=== PATIENT | female | born 1985 | race African-American/Black ===

== ENCOUNTER 2024-06-17 20:43 | Inpatient (IN) | payer OTHER, MEDICAID ==
[~2024-06-17] VITALS: Ht 175.3 cm; Wt 54.0 kg
[~2024-06-17 20:43] MED LIST: ASPI81TA43 PO; CALC0.253 PO; FOLI-43 PO; OLAN10TA72 PO
[2024-06-17] MEDS: SODIUM CHLORIDE 0.9% 500 ML IV ONE (22:44)
[2024-06-17] MEDS: PIPERACILLIN/TAZO 3.375G/50ML 50 ML IV ONE (23:00)
[2024-06-17 23:01] LABS: BASOPHILS % 0.8 % (0.0-2.0); EOSINOPHILS % 6.2 % (0.0-5.0); HEMATOCRIT. 36.7 % (36.0-48.0); HEMOGLOBIN. 11.5 g/dL (12.0-16.0); LYMPHOCYTES % 15.5 % (20.0-50.0); MEAN CORPUSCULAR HEMOGLOBIN 26.7 pg (28.0-32.0); MEAN CORPUSCULAR HGB CONC 31.2 g/dL (31.0-37.0); MEAN CORPUSCULAR VOLUME 85.4 fL (81.0-99.0); MEAN PLATELET VOLUME 9.3 fl (7.4-10.4); MONOCYTES % 13.5 % (2.0-8.0); PLATELET 169 x1000/uL (130-400); RED CELL DISTRIBUTION WIDTH 16.1 % (11.6-14.6); WHITE BLOOD COUNT 6.5 x1000/uL (4.5-11.0)
[2024-06-17 23:07] LABS: CHLORIDE 98 mEq/L (98-107); POTASSIUM 5.9 mEq/L (3.5-5.1); SODIUM 140 mEq/L (136-145)
[2024-06-17 23:08] LABS: CARBON DIOXIDE 37 mEq/L (21-32)
[2024-06-17 23:09] LABS: CALCIUM 7.6 mg/dL (8.7-10.4)
[2024-06-17 23:13] LABS: CREATININE 4.7 mg/dL (0.6-1.0); GLUCOSE 101 mg/dL (70-105)
[2024-06-17 23:14] LABS: UREA NITROGEN BLOOD 30 mg/dL (9-23)
[2024-06-17 23:15] LABS: ALANINE AMINOTRANSFERASE 8 IU/L (10-49); ALBUMIN 4.1 g/dL (3.2-4.8); ASPARTATE AMINOTRANSFERASE 31 IU/L (<34)
[2024-06-17 23:16] LABS: BILIRUBIN TOTAL 0.3 mg/dL (0.1-1.0); PROTEIN TOTAL 7.4 g/dL (6.0-8.3)
[2024-06-17 23:17] LABS: BILIRUBIN DIRECT < 0.1 mg/dL (<=3.0)
[2024-06-17] MEDS ORDERED: CALCIUM GLUCONATE 1,000 MG in DEXT 5% WATER 100 ML IV ONE (23:45)
[2024-06-18] VITALS (12 sets, daily range): BP systolic 115–142; BP diastolic 65–93; PULSE 88–113; RESP 16–18; TEMP 36.3918–36.78072; O2SAT 96–99
[2024-06-18] MEDS: CALCIUM GLUCONATE 1GM PREMIX 50 ML IV NR (01:19)
[2024-06-18] MEDS: DEXTROSE 50% WATER 50ML SYRINGE IV ONE (01:22)
[2024-06-18] MEDS: DEXTROSE 50% WATER 50ML SYRINGE IV NR (01:26)
[2024-06-18] MEDS: INSULIN REGULAR (HUMULIN R) 1000UNITS/10ML VIAL IV ONE (01:27)
[2024-06-18] MEDS: SODIUM BICARBONATE 8.4% 50MEQ/50ML SYR IV ONE (01:27)
[2024-06-18] MEDS: INSULIN REGULAR (HUMULIN R) 1000UNITS/10ML VIAL IV NR (01:34)
[2024-06-18] MEDS: SODIUM BICARBONATE 8.4% 50MEQ/50ML SYR IV NR (01:34)
[2024-06-18] MEDS ORDERED: CEFEPIME 1GM IN DEXT 5% 50ML IV SCH (11:45)
[2024-06-18] MEDS: VANCOMYCIN 1.25GM/250ML IV NR (13:51)
[2024-06-18] MEDS: CEFEPIME 1GM/50ML 50 ML IV SCH (13:52)
[2024-06-18] MEDS: DIPHENHYDRAMINE 50MG/ML VIAL IV NR (16:45)
[2024-06-18] MEDS: LACTOBACILLUS RHAMNOSUS GG CAP PO SCH (18:30)
[2024-06-19] VITALS: BP 106/86; PULSE 106; RESP 18; TEMP 36.44736; O2SAT 98
[2024-06-19 08:05] VITALS: BP 104/64; PULSE 96; RESP 18; TEMP 38.00304; O2SAT 97
[2024-06-19 12:02] VITALS: BP 108/64; PULSE 92; RESP 18; TEMP 36.55848; O2SAT 98
[2024-06-19 12:23] LABS: BASOPHILS % 0.8 % (0.0-2.0); EOSINOPHILS % 7.3 % (0.0-5.0); HEMATOCRIT. 35.1 % (36.0-48.0); HEMOGLOBIN. 11.1 g/dL (12.0-16.0); LYMPHOCYTES % 15.5 % (20.0-50.0); MEAN CORPUSCULAR HEMOGLOBIN 26.9 pg (28.0-32.0); MEAN CORPUSCULAR HGB CONC 31.5 g/dL (31.0-37.0); MEAN CORPUSCULAR VOLUME 85.4 fL (81.0-99.0); MEAN PLATELET VOLUME 8.7 fl (7.4-10.4); MONOCYTES % 11.2 % (2.0-8.0); NEUTROPHILS % 65.2 % (40.0-76.0); PLATELET 148 x1000/uL (130-400); RED BLOOD CELL COUNT 4.11 mill/uL (4.2-5.4); RED CELL DISTRIBUTION WIDTH 16.2 % (11.6-14.6); WHITE BLOOD COUNT 4.7 x1000/uL (4.5-11.0)
[2024-06-19 12:39] LABS: POTASSIUM 4.5 mEq/L (3.5-5.1)
[2024-06-19 12:40] LABS: CALCIUM 7.2 mg/dL (8.7-10.4)
[2024-06-19 13:46] LABS: HEPATITIS B SURFACE ANTIGEN NEGATIVE (Negative)
[2024-06-19 14:06] LABS: HEPATITIS A AB IGM NEGATIVE (Negative)
[2024-06-19 14:07] LABS: HEPATITIS B CORE AB IGM NEGATIVE (Negative)
[2024-06-19 14:08] LABS: HEPATITIS C AB NON REACTIVE (Neg) (Negative)
[2024-06-19] MEDS: HYDROCODONE/ACETAMINOPHEN 5/325MG TABLET PO PRN (15:37)
[2024-06-19 16:04] VITALS: BP 110/66; PULSE 68; RESP 18; TEMP 36.78072; O2SAT 94
[2024-06-19] MEDS ORDERED: NALOXONE HCL 0.4MG/ML VIAL IV PRN (17:15)
[2024-06-19 17:32] LABS: HCG SCREEN NEGATIVE
[2024-06-19] MEDS: PREDNISONE 20MG TABLET PO SCH (18:51)
[2024-06-19 20:00] VITALS: BP 107/65; PULSE 75; RESP 20; TEMP 36.44736; O2SAT 95
[2024-06-20] VITALS (13 sets, daily range): BP systolic 94–159; BP diastolic 53–69; PULSE 78–120; RESP 16–20; TEMP 36.16956–37.2252; O2SAT 93–100
[2024-06-20] MEDS: DIPHENHYDRAMINE 50MG CAPSULE PO SCH (06:11)
[2024-06-20 07:39] LABS: BASOPHILS % 0.4 % (0.0-2.0); EOSINOPHILS % 0.7 % (0.0-5.0); HEMATOCRIT. 38.3 % (36.0-48.0); HEMOGLOBIN. 12.1 g/dL (12.0-16.0); LYMPHOCYTES % 8.5 % (20.0-50.0); MEAN CORPUSCULAR HGB CONC 31.6 g/dL (31.0-37.0); MEAN CORPUSCULAR VOLUME 85.5 fL (81.0-99.0); MEAN PLATELET VOLUME 9.4 fl (7.4-10.4); MONOCYTES % 1.3 % (2.0-8.0); NEUTROPHILS % 89.1 % (40.0-76.0); PLATELET 155 x1000/uL (130-400); RED BLOOD CELL COUNT 4.49 mill/uL (4.2-5.4); WHITE BLOOD COUNT 5.1 x1000/uL (4.5-11.0)
[2024-06-20] MEDS: SEVELAMER CARBONATE 800 MG TABLET PO SCH (07:40)
[2024-06-20 07:50] LABS: POTASSIUM 4.8 mEq/L (3.5-5.1)
[2024-06-20 07:52] LABS: CALCIUM 6.9 mg/dL (8.7-10.4)
[2024-06-20 08:20] LABS: CREATININE 5.9 mg/dL (0.6-1.0)
[2024-06-20] MEDS: DIPHENHYDRAMINE 50MG/ML VIAL IV NR (09:45)
[2024-06-20] MEDS: FOLIC ACID/VITAMIN B COMP W-C TABLET PO SCH (11:38)
[2024-06-20] MEDS: VANCOMYCIN 500MG PREMIX 100 ML IV SCH (21:00)
[2024-06-21] VITALS: BP_SYST 111; BP_SYST 132; BP_DIAS 78; PULSE 95; RESP 20; TEMP 36.6696; O2SAT 100
[2024-06-21 04:00] VITALS: BP 99/57; PULSE 98; RESP 20; TEMP 36.61404; O2SAT 99
[2024-06-21 10:31] LABS: BASOPHILS % 0.8 % (0.0-2.0); EOSINOPHILS % 2.6 % (0.0-5.0); HEMATOCRIT. 36.4 % (36.0-48.0); HEMOGLOBIN. 11.5 g/dL (12.0-16.0); LYMPHOCYTES % 20.6 % (20.0-50.0); MEAN CORPUSCULAR HEMOGLOBIN 26.8 pg (28.0-32.0); MEAN CORPUSCULAR HGB CONC 31.5 g/dL (31.0-37.0); MEAN CORPUSCULAR VOLUME 84.9 fL (81.0-99.0); MEAN PLATELET VOLUME 8.8 fl (7.4-10.4); MONOCYTES % 10.6 % (2.0-8.0); NEUTROPHILS % 65.4 % (40.0-76.0); PLATELET 173 x1000/uL (130-400); RED BLOOD CELL COUNT 4.28 mill/uL (4.2-5.4); RED CELL DISTRIBUTION WIDTH 15.8 % (11.6-14.6); WHITE BLOOD COUNT 5.8 x1000/uL (4.5-11.0)
[2024-06-21 10:43] LABS: INR 1.1; PROTHROMBIN TIME 11.9 sec (9.6-11.0)
[2024-06-21 10:52] LABS: CREATININE 6.2 mg/dL (0.6-1.0)
[2024-06-21] MEDS ORDERED: THROMBIN (BOVINE) 5000 UNITS/VIAL TOP ONE ×2 (11:17→15:41)
[2024-06-21] MEDS ORDERED: BACITRACIN 14GM TUBE TOP ONE (11:17)
[2024-06-21] MEDS ORDERED: POLYMYXIN B SULFATE 500000 UNITS/VIAL ONE (11:17)
[2024-06-21] MEDS ORDERED: LIDOCAINE HCL/EPINEPHRINE 1%-EPI 1:100,000 20ML VIAL ONE (11:18)
[2024-06-21] MEDS ORDERED: HEPARIN SODIUM 1,000 UNIT/1ML VIAL IV ONE (11:18)
[2024-06-21] MEDS ORDERED: BUPIVACAINE HCL/PF 0.5% (5MG/ML) 10ML ONE (11:18)
[2024-06-21] MEDS ORDERED: IOHEXOL-300 100 ML BOTTLE ONE (11:23)
[2024-06-21] MEDS ORDERED: LIDOCAINE HCL 1% 20ML VIAL ONE (11:24)
[2024-06-21] MEDS ORDERED: HEPARIN 5000 UNITS/ML VIAL ONE (12:41)
[2024-06-21] MEDS ORDERED: PROPOFOL 200MG/20ML VIAL IV ONE (12:49)
[2024-06-21] MEDS: VANCOMYCIN 500MG PREMIX 100 ML IV SCH (13:00)
[2024-06-21] MEDS: CALCIUM ACETATE 667MG CAPSULE PO SCH (13:00)
[2024-06-21] MEDS ORDERED: LIDOCAINE HCL 1% 10 MG/ML 10ML VIAL ONE (13:01)
[2024-06-21] MEDS ORDERED: FENTANYL CITRATE/PF 50MCG/ML 2ML VIAL ONE ×3 (13:20→15:28)
[2024-06-21] MEDS ORDERED: MIDAZOLAM HCL 2 MG/2 ML VIAL ONE (13:20)
[2024-06-21] MEDS ORDERED: EPHEDRINE SULFATE 50MG/ML VIAL ONE (13:21)
[2024-06-21] MEDS ORDERED: ROCURONIUM BROMIDE 10MG/ML VIAL 5ML IV ONE ×2 (13:22→13:43)
[2024-06-21] MEDS ORDERED: PHENYLEPHRINE HCL 10MG/ML 1ML IV ONE (13:30)
[2024-06-21] MEDS ORDERED: METOCLOPRAMIDE HCL 10MG/2ML VIAL ONE (13:42)
[2024-06-21] MEDS ORDERED: VANCOMYCIN HCL 1GM VIAL ONE (13:54)
[2024-06-21] MEDS ORDERED: VANCOMYCIN HCL 500 MG ONE (14:01)
[2024-06-21] MEDS ORDERED: HEPARIN 1000 UNITS/ML 10ML ONE ×2 (15:06→16:42)
[2024-06-21] MEDS ORDERED: SUGAMMADEX SODIUM 200MG/2ML VIAL IV ONE (15:25)
[2024-06-21] MEDS ORDERED: PROTAMINE SULFATE 10MG/ML VIAL 5ML IV ONE (15:47)
[2024-06-21] MEDS ORDERED: ONDANSETRON HCL 4MG/2ML INJ ONE (16:25)
[2024-06-21] MEDS ORDERED: FENTANYL CITRATE/PF 50MCG/ML 2ML VIAL IV PRN (17:30)
[2024-06-21] MEDS ORDERED: ONDANSETRON HCL 4MG/2ML INJ IV PRN (17:30)
[2024-06-21 20:00] VITALS: BP 97/50; PULSE 68; RESP 18; TEMP 36.50292; O2SAT 99
[2024-06-22] VITALS (11 sets, daily range): BP systolic 90–105; BP diastolic 35–70; PULSE 68–108; RESP 16–18; TEMP 35.89176–38.11416; O2SAT 98–99
[2024-06-22] MEDS ORDERED: DIPHENHYDRAMINE 50MG CAPSULE PO PRN (09:00)
[2024-06-22] MEDS: DIPHENHYDRAMINE 50MG/ML VIAL IV NR (09:07)
[2024-06-22 11:38] LABS: POTASSIUM 3.2 mEq/L (3.5-5.1)
[2024-06-22 11:39] LABS: CALCIUM 7.1 mg/dL (8.7-10.4)
[2024-06-22 12:21] LABS: CREATININE 3.7 mg/dL (0.6-1.0)
[2024-06-22] MEDS: VANCOMYCIN 750MG PREMIX 150 ML IV SCH (14:55)
[2024-06-23] VITALS (16 sets, daily range): BP systolic 85–118; BP diastolic 30–68; PULSE 72–97; RESP 14–20; TEMP 36.61404–37.39188; O2SAT 98–100
[2024-06-23] MEDS ORDERED: LIDOCAINE HCL 1% 10 MG/ML 10ML VIAL ONE (07:46)
[2024-06-23] MEDS ORDERED: HEPARIN 1000 UNITS/ML 10ML ONE (07:46)
[2024-06-23] MEDS ORDERED: FENTANYL CITRATE/PF 50MCG/ML 2ML VIAL ONE (08:04)
[2024-06-23] MEDS: FENTANYL CITRATE/PF 50MCG/ML 2ML VIAL IV NR (08:05)
[2024-06-23] MEDS: LIDOCAINE/PRILOCAINE CREAM 5 GM TUBE TOP NR (11:05)
[2024-06-24] VITALS (9 sets, daily range): BP systolic 95–115; BP diastolic 39–91; PULSE 84–105; RESP 15–20; TEMP 36.28068–37.11408; O2SAT 95–99
[2024-06-24] MEDS: DIPHENHYDRAMINE 50MG/ML VIAL IV NR (11:01)
[2024-06-24] MEDS ORDERED: VANCOMYCIN 750MG/150ML (BAXTER) IV NR (17:00)
[2024-06-25] VITALS: BP 107/46; PULSE 83; RESP 20; TEMP 36.3918; O2SAT 95
[2024-06-25 04:00] VITALS: BP 97/44; PULSE 85; RESP 20; TEMP 36.16956; O2SAT 96
[2024-06-25 08:00] VITALS: BP_SYST 90; BP_SYST 98; BP_DIAS 46; BP_DIAS 50; PULSE 82; RESP 19; TEMP 36.61404; O2SAT 99
[2024-06-25 12:00] VITALS: PULSE 86; RESP 18; TEMP 36.89184; O2SAT 96
[2024-06-25 16:00] VITALS: BP 97/39; PULSE 87; RESP 18; TEMP 36.55848; O2SAT 96
[2024-06-25 20:00] VITALS: BP 102/46; PULSE 94; RESP 18; TEMP 36.89184; O2SAT 98
[2024-06-25] MEDS: MORPHINE SULFATE 2 MG/ML INJ (NOT FOR IM USE) IV PRN (22:21)
[2024-06-26] VITALS (14 sets, daily range): BP systolic 88–146; BP diastolic 48–81; PULSE 58–99; RESP 16–20; TEMP 36.55848–37.89192; O2SAT 94–100
[2024-06-26] MEDS: DIPHENHYDRAMINE 50MG/ML VIAL IV NR (10:02)
[2024-06-26] MEDS ORDERED: NALOXONE HCL 0.4MG/ML VIAL IV PRN (21:45)
[2024-06-27 08:00] VITALS: BP 120/59; PULSE 83; RESP 18; TEMP 36.05844; O2SAT 99
[2024-06-27 12:00] VITALS: BP 96/46; PULSE 89; RESP 18; TEMP 36.61404; O2SAT 99
[2024-06-27 16:00] VITALS: BP 98/42; PULSE 83; RESP 18; TEMP 37.11408; O2SAT 98
[2024-06-27 20:00] VITALS: BP 96/54; PULSE 87; RESP 20; TEMP 36.33624; O2SAT 100
[2024-06-28] VITALS (15 sets, daily range): BP systolic 86–116; BP diastolic 35–56; PULSE 60–92; RESP 16–18; TEMP 36.114–36.78072; O2SAT 97–98
[2024-06-28] MEDS: DIPHENHYDRAMINE 50MG/ML VIAL IV NR (13:45)
[2024-06-28] MEDS: MIDODRINE HCL 5MG TABLET PO SCH (19:04)
[2024-06-29] VITALS: BP 120/48; PULSE 70; RESP 18; TEMP 36.50292; O2SAT 97
[2024-06-29 04:00] VITALS: BP 96/50; PULSE 79; RESP 16; TEMP 36.16956; O2SAT 96
[2024-06-29 08:00] VITALS: BP 71/36; PULSE 72; RESP 19; TEMP 36.61404; O2SAT 97
[2024-06-29 12:00] VITALS: BP 92/50; PULSE 68; RESP 19; TEMP 36.61404; O2SAT 97
[2024-06-29 16:00] VITALS: BP 143/65; PULSE 65; RESP 19; TEMP 36.61404; O2SAT 90
[2024-06-29 20:00] VITALS: BP 103/55; PULSE 62; RESP 19; TEMP 36.55848; O2SAT 100
[2024-06-30] VITALS: BP 98/52; PULSE 65; RESP 19; TEMP 36.3918; O2SAT 100
[2024-06-30 08:00] VITALS: BP 90/61; PULSE 63; RESP 20; TEMP 35.5584; O2SAT 100
[2024-06-30] MEDS: DIPHENHYDRAMINE 50MG/ML VIAL IV SCH (10:00)
[2024-06-30 12:00] VITALS: BP 116/63; PULSE 63; RESP 18; TEMP 35.61396; O2SAT 97
[2024-06-30 16:00] VITALS: BP 93/66; PULSE 69; RESP 20; TEMP 36.3918; O2SAT 95
[2024-06-30 20:00] VITALS: BP 117/64; PULSE 70; RESP 18; TEMP 36.89184; O2SAT 100
[2024-07-01] VITALS (14 sets, daily range): BP systolic 97–161; BP diastolic 50–78; PULSE 65–98; RESP 16–18; TEMP 36.114–36.6696; O2SAT 97–100
[2024-07-01] MEDS: ACETAMINOPHEN 325MG TABLET PO PRN (09:09)
[2024-07-01] MEDS: ONDANSETRON HCL 4MG/2ML INJ IV PRN (14:08)
[2024-07-01] MEDS: HYDROCODONE/ACETAMINOPHEN 5/325MG TABLET PO PRN (14:09)
[2024-07-01] MEDS: DIPHENHYDRAMINE 50MG/ML VIAL IV NR (18:07)
[2024-07-01 18:51] LABS: POTASSIUM 4.1 mEq/L (3.5-5.1)
[2024-07-01 18:52] LABS: CALCIUM 7.2 mg/dL (8.7-10.4)
[2024-07-01 19:00] LABS: CREATININE 7.4 mg/dL (0.6-1.0)
[2024-07-01 19:02] LABS: BASOPHILS % 1.3 % (0.0-2.0); EOSINOPHILS % 12.8 % (0.0-5.0); HEMATOCRIT. 29.4 % (36.0-48.0); HEMOGLOBIN. 9.6 g/dL (12.0-16.0); LYMPHOCYTES % 20.5 % (20.0-50.0); MEAN CORPUSCULAR HEMOGLOBIN 27.1 pg (28.0-32.0); MEAN CORPUSCULAR HGB CONC 32.6 g/dL (31.0-37.0); MEAN CORPUSCULAR VOLUME 83.2 fL (81.0-99.0); MEAN PLATELET VOLUME 9.2 fl (7.4-10.4); MONOCYTES % 8.6 % (2.0-8.0); NEUTROPHILS % 56.8 % (40.0-76.0); PLATELET 131 x1000/uL (130-400); RED BLOOD CELL COUNT 3.53 mill/uL (4.2-5.4); RED CELL DISTRIBUTION WIDTH 15.5 % (11.6-14.6); WHITE BLOOD COUNT 4.3 x1000/uL (4.5-11.0)
[2024-07-02] VITALS: PULSE 65; RESP 18; TEMP 36.44736; O2SAT 99
[2024-07-02 08:00] VITALS: BP 84/32; PULSE 65; RESP 19; TEMP 36.3918; O2SAT 97
[2024-07-02 12:00] VITALS: BP 92/66; PULSE 66; RESP 18; TEMP 36.61404; O2SAT 96
[2024-07-02] MEDS: MIDODRINE HCL 5MG TABLET PO SCH (13:11)
[2024-07-02 20:00] VITALS: BP 109/51; PULSE 60; RESP 18; TEMP 36.61404; O2SAT 100
[2024-07-03] VITALS: BP 93/82; PULSE 58; RESP 18; TEMP 36.3918; O2SAT 96
[2024-07-03 04:00] VITALS: BP 125/62; PULSE 64; RESP 18; TEMP 36.72516; O2SAT 96
[2024-07-03 08:00] VITALS: BP 101/56; PULSE 63; RESP 18; TEMP 36.55848; O2SAT 95
[2024-07-03 12:00] VITALS: BP 122/66; PULSE 65; RESP 17; TEMP 36.50292; O2SAT 97
[2024-07-03 16:00] VITALS: BP 115/60; PULSE 60; RESP 18; TEMP 36.3918; O2SAT 97
[2024-07-03 20:00] VITALS: BP 120/41; PULSE 62; RESP 17; TEMP 36.55848; O2SAT 96
[2024-07-04] VITALS (14 sets, daily range): BP systolic 80–152; BP diastolic 33–94; PULSE 57–87; RESP 16–18; TEMP 35.72508–36.6696; O2SAT 97–100
[2024-07-04] MEDS: DIPHENHYDRAMINE 50MG/ML VIAL IV NR (14:55)
[2024-07-05] VITALS: BP 90/38; PULSE 68; RESP 18; TEMP 36.55848; O2SAT 99
[2024-07-05 04:00] VITALS: BP 92/40; PULSE 74; RESP 18; TEMP 36.50292; O2SAT 99
[2024-07-05 08:00] VITALS: BP 104/65; PULSE 60; RESP 16; TEMP 36.50292; O2SAT 95
[2024-07-05 12:00] VITALS: BP 108/68; PULSE 73; RESP 18; TEMP 36.50292; O2SAT 98
[2024-07-05 16:00] VITALS: BP 110/60; PULSE 75; RESP 18; TEMP 36.50292; O2SAT 98
[2024-07-05 20:00] VITALS: BP 118/61; PULSE 79; RESP 16; TEMP 36.114; O2SAT 98
[2024-07-06] VITALS (12 sets, daily range): BP systolic 85–160; BP diastolic 41–120; PULSE 61–83; RESP 16–20; TEMP 35.78064–37.16964; O2SAT 95–99
[2024-07-06] MEDS: DIPHENHYDRAMINE 50MG/ML VIAL IV NR (16:44)
[2024-07-07] VITALS: BP 80/38; PULSE 75; RESP 19; TEMP 36.78072; O2SAT 100
[2024-07-07] MEDS ORDERED: SODIUM CHLORIDE 0.9% 250 ML IV ONE (01:30)
[2024-07-07 04:00] VITALS: BP 93/59; PULSE 69; RESP 19; TEMP 36.61404; O2SAT 100
[2024-07-07 08:00] VITALS: BP 90/52; PULSE 72; RESP 17; TEMP 36.3918; O2SAT 96
[2024-07-07 16:00] VITALS: BP 134/74; PULSE 63; RESP 18; TEMP 36.05844; O2SAT 100
[2024-07-07 20:00] VITALS: BP 122/67; PULSE 72; RESP 16; TEMP 36.00288; O2SAT 100
[2024-07-08] VITALS (14 sets, daily range): BP systolic 112–128; BP diastolic 63–81; PULSE 64–92; RESP 1–19; TEMP 36.16956–36.72516; O2SAT 97–100
[2024-07-08] MEDS ORDERED: DIPHENHYDRAMINE 50MG/ML VIAL IV NR (07:00)
[2024-07-08] MEDS: DIPHENHYDRAMINE 50MG/ML VIAL IV NR (13:55)
[2024-07-08 14:20] LABS: BASOPHILS % 0.7 % (0.0-2.0); EOSINOPHILS % 13.2 % (0.0-5.0); HEMATOCRIT. 31.4 % (36.0-48.0); HEMOGLOBIN. 10.3 g/dL (12.0-16.0); LYMPHOCYTES % 17.3 % (20.0-50.0); MEAN CORPUSCULAR HGB CONC 32.8 g/dL (31.0-37.0); MEAN CORPUSCULAR VOLUME 82.3 fL (81.0-99.0); MEAN PLATELET VOLUME 9.2 fl (7.4-10.4); MONOCYTES % 7.2 % (2.0-8.0); NEUTROPHILS % 61.6 % (40.0-76.0); PLATELET 125 x1000/uL (130-400); RED BLOOD CELL COUNT 3.82 mill/uL (4.2-5.4); RED CELL DISTRIBUTION WIDTH 15.6 % (11.6-14.6); WHITE BLOOD COUNT 5.8 x1000/uL (4.5-11.0)
[2024-07-08 14:25] LABS: POTASSIUM 4.2 mEq/L (3.5-5.1)
[2024-07-08 14:27] LABS: CALCIUM 8.2 mg/dL (8.7-10.4)
[2024-07-08 14:52] LABS: CREATININE 6.6 mg/dL (0.6-1.0)
[2024-07-09] VITALS: BP 126/80; PULSE 65; RESP 18; TEMP 36.6696; O2SAT 98
[2024-07-09 04:00] VITALS: BP 100/65; PULSE 68; RESP 18; TEMP 36.44736; O2SAT 100
[2024-07-09 08:00] VITALS: BP 93/56; PULSE 70; RESP 20; TEMP 36.114; O2SAT 96
[2024-07-09 12:00] VITALS: BP 95/57; PULSE 72; RESP 20; TEMP 36.114; O2SAT 97
[2024-07-09 16:00] VITALS: BP 91/50; PULSE 80; RESP 20; TEMP 36.22512; O2SAT 97
[2024-07-09 20:00] VITALS: BP 115/61; PULSE 50; RESP 18; TEMP 36.114; O2SAT 97
[2024-07-10 04:00] VITALS: BP 114/54; PULSE 67; RESP 18; TEMP 36.22512; O2SAT 97
[2024-07-10 08:03] VITALS: BP 123/61; PULSE 67; RESP 20; TEMP 36.6696; O2SAT 100
[2024-07-10 11:58] VITALS: BP 90/51; PULSE 73; RESP 18; TEMP 36.114; O2SAT 99
[2024-07-10 16:00] VITALS: BP 113/62; PULSE 97; RESP 18; TEMP 36.6696; O2SAT 97
[2024-07-10 20:00] VITALS: BP 114/60; PULSE 75; RESP 18; TEMP 36.50292; O2SAT 100
[2024-07-11] VITALS (13 sets, daily range): BP systolic 83–156; BP diastolic 56–118; PULSE 63–106; RESP 16–20; TEMP 36.05844–36.3918; O2SAT 97–99
[2024-07-11] MEDS: DIPHENHYDRAMINE 50MG/ML VIAL IV NR (14:52)
[2024-07-12] VITALS: BP 95/62; PULSE 63; RESP 18; TEMP 36.33624; O2SAT 96
[2024-07-12 04:00] VITALS: BP 97/73; PULSE 64; RESP 18; TEMP 35.8362; O2SAT 99
[2024-07-12 07:54] VITALS: BP 117/62; PULSE 62; RESP 18; TEMP 36.6696; O2SAT 100
[2024-07-12 11:58] VITALS: BP 101/52; PULSE 61; RESP 20; TEMP 36.6696; O2SAT 99
[2024-07-12 16:00] VITALS: BP 108/62; PULSE 79; RESP 18; TEMP 36.05844; O2SAT 100
[2024-07-12 20:00] VITALS: BP 100/68; PULSE 70; RESP 18; TEMP 36.9474; O2SAT 95
[2024-07-13] VITALS (10 sets, daily range): BP systolic 90–165; BP diastolic 70–93; PULSE 73–127; RESP 16–18; TEMP 35.50284–36.6696; O2SAT 95–100
[2024-07-13] MEDS: DIPHENHYDRAMINE 50MG/ML VIAL IV NR (15:29)
[2024-07-13 17:32] LABS: BASOPHILS % 0.7 % (0.0-2.0); EOSINOPHILS % 10.2 % (0.0-5.0); HEMATOCRIT. 36.3 % (36.0-48.0); HEMOGLOBIN. 11.9 g/dL (12.0-16.0); LYMPHOCYTES % 15.7 % (20.0-50.0); MEAN CORPUSCULAR HGB CONC 32.8 g/dL (31.0-37.0); MEAN CORPUSCULAR VOLUME 82.3 fL (81.0-99.0); MEAN PLATELET VOLUME 9.9 fl (7.4-10.4); MONOCYTES % 8.9 % (2.0-8.0); NEUTROPHILS % 64.5 % (40.0-76.0); PLATELET 155 x1000/uL (130-400); RED CELL DISTRIBUTION WIDTH 15.5 % (11.6-14.6); WHITE BLOOD COUNT 7.1 x1000/uL (4.5-11.0)
[2024-07-13 17:33] LABS: POTASSIUM 3.4 mEq/L (3.5-5.1)
[2024-07-13 17:34] LABS: CALCIUM 9.1 mg/dL (8.7-10.4)
[2024-07-14] VITALS: BP 105/70; PULSE 84; RESP 20; TEMP 36.3918; O2SAT 97
[2024-07-14 04:00] VITALS: BP 99/63; PULSE 94; RESP 17; TEMP 36.3918; O2SAT 99
[2024-07-14 16:00] VITALS: BP 105/66; PULSE 61; RESP 17; TEMP 36.3918; O2SAT 98
[2024-07-15] VITALS (13 sets, daily range): BP systolic 98–146; BP diastolic 60–98; PULSE 88–116; RESP 16–20; TEMP 36.22512–36.9474; O2SAT 95–100
[2024-07-15] MEDS ORDERED: DIPHENHYDRAMINE 50MG/ML VIAL IV NR (04:30)
[2024-07-15] MEDS: DIPHENHYDRAMINE 50MG/ML VIAL IV NR (15:39)
[2024-07-16] VITALS: PULSE 106; RESP 18; TEMP 36.78072; O2SAT 92
[2024-07-16 04:00] VITALS: BP 102/63; PULSE 81; RESP 18; TEMP 36.44736; O2SAT 94
[2024-07-16 08:00] VITALS: BP 111/77; PULSE 81; RESP 19; TEMP 36.44736; O2SAT 96
[2024-07-16 16:00] VITALS: BP 100/56; PULSE 80; RESP 18; TEMP 36.44736; O2SAT 98
[2024-07-16 23:35] VITALS: BP 114/79; PULSE 79; RESP 18; TEMP 36.61404; O2SAT 98
[2024-07-17 01:31] VITALS: BP 120/76; PULSE 80; RESP 20; TEMP 36.44736; O2SAT 99
[2024-07-17 04:53] VITALS: BP 122/76; PULSE 80; RESP 18; TEMP 37.72524; O2SAT 98
[2024-07-17 08:00] VITALS: BP 105/75; PULSE 77; RESP 19; TEMP 36.6696; O2SAT 99
[2024-07-17 12:00] VITALS: BP 98/51; PULSE 98; RESP 19; TEMP 36.05844; O2SAT 99
[2024-07-17 16:00] VITALS: BP 106/69; PULSE 83; RESP 20; TEMP 36.05844; O2SAT 99
[2024-07-17 20:00] VITALS: BP 130/71; PULSE 80; RESP 17; TEMP 36.3918; O2SAT 97
[2024-07-18] VITALS (12 sets, daily range): BP systolic 94–143; BP diastolic 52–96; PULSE 64–119; RESP 18–20; TEMP 36.00288–36.6696; O2SAT 97–100
[2024-07-18] MEDS ORDERED: DIPHENHYDRAMINE 50MG/ML VIAL IV ONE (09:30)
[2024-07-18] MEDS: DIPHENHYDRAMINE 50MG/ML VIAL IV NR (10:54)
[2024-07-19] VITALS: BP 109/71; PULSE 73; RESP 19; TEMP 36.50292; O2SAT 98
[2024-07-19 04:00] VITALS: BP 99/60; PULSE 105; RESP 20; TEMP 37.05852; O2SAT 100
[2024-07-19 08:00] VITALS: BP 98/66; PULSE 94; RESP 19; TEMP 36.72516; O2SAT 100
[2024-07-19 18:04] LABS: POTASSIUM 5.8 mEq/L (3.5-5.1)
[2024-07-19 18:05] LABS: CALCIUM 7.4 mg/dL (8.7-10.4)
[2024-07-19 18:17] LABS: CREATININE 7.2 mg/dL (0.6-1.0)
[2024-07-19 20:00] VITALS: BP 95/60; PULSE 75; TEMP 36.50292
[2024-07-20] VITALS (11 sets, daily range): BP systolic 91–142; BP diastolic 47–95; PULSE 71–117; RESP 16–18; TEMP 36.3918–36.55848; O2SAT 95
[2024-07-20] MEDS: DIPHENHYDRAMINE 50MG/ML VIAL IV NR (19:54)
[2024-07-21] VITALS: BP 108/65; PULSE 95; RESP 17; TEMP 36.22512; O2SAT 96
[2024-07-21 16:00] VITALS: BP 150/133; PULSE 82; RESP 20; TEMP 36.00288; O2SAT 98
[2024-07-21 20:00] VITALS: BP 200/140; PULSE 96; RESP 18; TEMP 36.05844; O2SAT 95
[2024-07-21] MEDS ORDERED: CLONIDINE 0.1MG TABLET PO PRN (20:00)
[2024-07-22] VITALS (12 sets, daily range): BP systolic 87–118; BP diastolic 54–85; PULSE 73–102; RESP 15–18; TEMP 36.114–36.61404; O2SAT 95–99
[2024-07-22] MEDS: DIPHENHYDRAMINE 50MG/ML VIAL IV NR (12:55)
[2024-07-23] VITALS: BP 101/74; PULSE 94; RESP 18; TEMP 36.55848; O2SAT 97
[2024-07-23 04:00] VITALS: BP 99/68; PULSE 92; RESP 18; TEMP 36.50292; O2SAT 98
[2024-07-23 08:00] VITALS: BP 92/61; PULSE 77; RESP 16; TEMP 35.78064; O2SAT 97
[2024-07-23 12:00] VITALS: BP 107/59; PULSE 62; RESP 62; TEMP 36.00288; O2SAT 100
[2024-07-23 16:00] VITALS: BP 109/74; PULSE 74; RESP 18; TEMP 35.39172; O2SAT 100
[2024-07-23 20:00] VITALS: BP 105/65; PULSE 75; RESP 17; TEMP 35.72508; O2SAT 95
[2024-07-24] VITALS (12 sets, daily range): BP systolic 90–123; BP diastolic 52–74; PULSE 73–99; RESP 14–20; TEMP 36.05844–37.39188; O2SAT 95–100
[2024-07-24] MEDS: DIPHENHYDRAMINE 50MG/ML VIAL IV NR (07:47)
[2024-07-24 09:15] LABS: BASOPHILS % 0.8 % (0.0-2.0); EOSINOPHILS % 10.4 % (0.0-5.0); HEMATOCRIT. 32.2 % (36.0-48.0); HEMOGLOBIN. 10.4 g/dL (12.0-16.0); LYMPHOCYTES % 22.1 % (20.0-50.0); MEAN CORPUSCULAR HEMOGLOBIN 26.6 pg (28.0-32.0); MEAN CORPUSCULAR HGB CONC 32.3 g/dL (31.0-37.0); MEAN CORPUSCULAR VOLUME 82.3 fL (81.0-99.0); MEAN PLATELET VOLUME 8.9 fl (7.4-10.4); MONOCYTES % 10.4 % (2.0-8.0); NEUTROPHILS % 56.3 % (40.0-76.0); PLATELET 146 x1000/uL (130-400); RED BLOOD CELL COUNT 3.92 mill/uL (4.2-5.4); RED CELL DISTRIBUTION WIDTH 15.8 % (11.6-14.6); WHITE BLOOD COUNT 4.9 x1000/uL (4.5-11.0)
[2024-07-24 09:21] LABS: POTASSIUM 4.4 mEq/L (3.5-5.1)
[2024-07-24 09:22] LABS: CALCIUM 7.8 mg/dL (8.7-10.4)
[2024-07-24 09:29] LABS: CREATININE 6.4 mg/dL (0.6-1.0); PHOSPHORUS 3.4 mg/dL (2.5-4.9)
[2024-07-25] VITALS: BP 106/64; PULSE 98; RESP 20; TEMP 36.55848; O2SAT 98
[2024-07-25 04:00] VITALS: BP 121/92; PULSE 100; RESP 16; TEMP 36.6696; O2SAT 97
[2024-07-25 08:00] VITALS: BP 121/92; PULSE 100; RESP 16; TEMP 36.6696; O2SAT 97
[2024-07-25 12:00] VITALS: BP 99/68; PULSE 82; RESP 18; TEMP 35.22504; O2SAT 98
[2024-07-25 16:00] VITALS: BP 100/66; PULSE 80; RESP 18; TEMP 36.55848; O2SAT 98
[2024-07-25 20:00] VITALS: BP 96/55; PULSE 103; RESP 17; TEMP 36.89184; O2SAT 96
[2024-07-26] VITALS (10 sets, daily range): BP systolic 80–152; BP diastolic 45–87; PULSE 71–103; RESP 16–20; TEMP 36.114–36.6696; O2SAT 97–100
[2024-07-26] MEDS ORDERED: LIDOCAINE HCL 4% CREAM 76GM TUBE TP PRN (09:00)
[2024-07-26] MEDS: DIPHENHYDRAMINE 50MG/ML VIAL IV PRN (22:56)
[2024-07-27] VITALS (9 sets, daily range): BP systolic 70–122; BP diastolic 30–86; PULSE 86–106; RESP 16–18; TEMP 36.114–36.83628; O2SAT 95–100
[2024-07-28] VITALS: BP 91/55; PULSE 90; RESP 18; TEMP 36.3918; O2SAT 97
[2024-07-28 08:00] VITALS: BP 89/57; PULSE 86; RESP 17; TEMP 36.89184; O2SAT 97
[2024-07-28 14:00] VITALS: BP 96/59; PULSE 83; RESP 18; TEMP 37.00296; O2SAT 98
[2024-07-28 16:00] VITALS: BP 90/60; PULSE 75; RESP 19; TEMP 37.05852; O2SAT 98
[2024-07-28 20:09] VITALS: BP 137/76; PULSE 78; RESP 17; TEMP 36.50292; O2SAT 97
[2024-07-28 23:40] LABS: POTASSIUM 5.6 mEq/L (3.5-5.1)
[2024-07-28 23:41] LABS: CALCIUM 7.3 mg/dL (8.7-10.4)
[2024-07-28 23:47] LABS: CREATININE 8.2 mg/dL (0.6-1.0)
[2024-07-29] VITALS (13 sets, daily range): BP systolic 87–118; BP diastolic 56–84; PULSE 85–108; RESP 16–18; TEMP 36.22512–36.61404; O2SAT 95–100
[2024-07-29 13:08] LABS: POTASSIUM 3.6 mEq/L (3.5-5.1)
[2024-07-29 13:10] LABS: CALCIUM 8.1 mg/dL (8.7-10.4)
[2024-07-29 13:21] LABS: CREATININE 6.4 mg/dL (0.6-1.0)
[2024-07-30 12:00] VITALS: BP 93/62; PULSE 60; RESP 18; TEMP 36.44736
[2024-07-30 16:00] VITALS: BP 100/60; PULSE 60; RESP 18; TEMP 36.3918
[2024-07-30 20:00] VITALS: BP 86/49; PULSE 80; RESP 18; TEMP 35.89176
[2024-07-31] VITALS: BP 97/58; PULSE 74; RESP 18; TEMP 36.16956
[2024-08-01] VITALS (14 sets, daily range): BP systolic 103–126; BP diastolic 53–90; PULSE 78–109; RESP 16–20; TEMP 36.05844–36.78072; O2SAT 95–100
[2024-08-02] VITALS: BP 101/46; PULSE 99; RESP 22; TEMP 36.05844; O2SAT 98
[2024-08-02 04:12] VITALS: BP 111/42; PULSE 102; RESP 20; TEMP 36.16956; O2SAT 98
[2024-08-02 12:00] VITALS: PULSE 74; RESP 20; TEMP 36.22512
[2024-08-02 16:00] VITALS: BP 102/63; PULSE 79; RESP 19; TEMP 36.44736; O2SAT 99
[2024-08-02 20:00] VITALS: BP 110/78; PULSE 92; RESP 17; TEMP 36.114; O2SAT 98
[2024-08-03] VITALS (15 sets, daily range): BP systolic 95–123; BP diastolic 55–80; PULSE 62–125; RESP 16–22; TEMP 36.22512–37.39188; O2SAT 96–100
[2024-08-04 04:00] VITALS: BP 107/80; PULSE 74; RESP 20; TEMP 36.6696; O2SAT 97
[2024-08-04 15:53] VITALS: BP 106/40; PULSE 116; RESP 20; TEMP 36.6696; O2SAT 98
[2024-08-04 20:00] VITALS: BP 87/60; PULSE 88; RESP 18; TEMP 36.72516; O2SAT 96
[2024-08-05] VITALS (12 sets, daily range): BP systolic 81–121; BP diastolic 41–73; PULSE 47–111; RESP 16–20; TEMP 36.28068–37.00296; O2SAT 97–99
[2024-08-06] VITALS: BP 91/56; PULSE 100; RESP 20; TEMP 36.44736; O2SAT 98
[2024-08-06 16:00] VITALS: BP 86/53; PULSE 100; RESP 20; TEMP 35.5584; O2SAT 100
[2024-08-06 20:00] VITALS: BP 93/34; PULSE 67; RESP 20; TEMP 35.89176; O2SAT 97
[2024-08-07] VITALS: BP 112/55; PULSE 107; RESP 19; TEMP 36.55848; O2SAT 93
[2024-08-07 04:00] VITALS: BP 95/46; PULSE 94; RESP 19; TEMP 36.16956; O2SAT 95
[2024-08-07 08:00] VITALS: BP 108/74; PULSE 97; RESP 18; TEMP 36.114; O2SAT 100
[2024-08-07 12:00] VITALS: BP 114/59; PULSE 101; RESP 20; TEMP 36.114; O2SAT 99
[2024-08-07 16:00] VITALS: BP 99/47; PULSE 100; RESP 20; TEMP 36.114; O2SAT 99
[2024-08-07 20:00] VITALS: BP 129/69; PULSE 113; RESP 19; TEMP 36.50292; O2SAT 98
[2024-08-08] VITALS (14 sets, daily range): BP systolic 98–135; BP diastolic 54–74; PULSE 95–114; RESP 16–20; TEMP 36.00288–36.78072; O2SAT 95–100
[2024-08-08 09:23] LABS: EOSINOPHILS % 5.5 % (0.0-5.0); HEMATOCRIT. 32.1 % (36.0-48.0); HEMOGLOBIN. 10.4 g/dL (12.0-16.0); LYMPHOCYTES % 24.2 % (20.0-50.0); MEAN CORPUSCULAR HEMOGLOBIN 26.5 pg (28.0-32.0); MEAN CORPUSCULAR HGB CONC 32.5 g/dL (31.0-37.0); MEAN CORPUSCULAR VOLUME 81.6 fL (81.0-99.0); MEAN PLATELET VOLUME 9.1 fl (7.4-10.4); MONOCYTES % 12.8 % (2.0-8.0); NEUTROPHILS % 56.5 % (40.0-76.0); PLATELET 151 x1000/uL (130-400); POTASSIUM 4.1 mEq/L (3.5-5.1); RED BLOOD CELL COUNT 3.93 mill/uL (4.2-5.4); RED CELL DISTRIBUTION WIDTH 15.6 % (11.6-14.6); WHITE BLOOD COUNT 4.2 x1000/uL (4.5-11.0)
[2024-08-08 09:24] LABS: CALCIUM 7.1 mg/dL (8.7-10.4)
[2024-08-08 10:02] LABS: CREATININE 7.8 mg/dL (0.6-1.0)
[2024-08-09 04:13] VITALS: BP 90/43; PULSE 94; RESP 20; TEMP 36.22512; O2SAT 100
[2024-08-09] MEDS: MIDODRINE HCL 5MG TABLET PO SCH (05:50)
[2024-08-09 08:00] VITALS: BP 98/50; PULSE 106; RESP 18; TEMP 36.72516; O2SAT 98
[2024-08-09 16:00] VITALS: BP 100/58; PULSE 82; RESP 19; TEMP 36.61404; O2SAT 98
[2024-08-09 20:00] VITALS: BP 95/60; PULSE 78; RESP 18; TEMP 36.33624; O2SAT 95
[2024-08-10] VITALS (11 sets, daily range): BP systolic 83–124; BP diastolic 48–74; PULSE 83–101; RESP 16–19; TEMP 35.89176–36.61404; O2SAT 96–100
[2024-08-10] MEDS ORDERED: ONDANSETRON HCL 4MG/2ML INJ IV PRN (20:45)
[2024-08-11] VITALS: BP 102/63; PULSE 91; RESP 18; TEMP 36.22512; O2SAT 95
[2024-08-11] MEDS: LEVOFLOXACIN 250MG TABLET PO SCH (11:00)
[2024-08-11 12:00] VITALS: BP 104/50; PULSE 98; RESP 18; TEMP 36.44736; O2SAT 99
[2024-08-11 16:00] VITALS: BP 104/52; PULSE 87; RESP 18; TEMP 36.3918; O2SAT 100
[2024-08-11] MEDS: HYDROCODONE/ACETAMINOPHEN 5/325MG TABLET PO PRN (18:06)
[2024-08-11 20:00] VITALS: BP 83/43; PULSE 77; RESP 18; TEMP 36.114; O2SAT 95
[2024-08-11] MEDS ORDERED: CEFEPIME 1GM IN DEXT 5% 50ML IV SCH (23:45)
[2024-08-12] VITALS (8 sets, daily range): BP systolic 81–126; BP diastolic 34–77; PULSE 80–110; RESP 16–20; TEMP 36.114–36.55848; O2SAT 95–100
[2024-08-12] MEDS: VANCOMYCIN 1G PREMIX 200 ML IV NR (00:42)
[2024-08-12] MEDS: DEXT 5% IV SCH (02:44)
[2024-08-12] MEDS: CEFEPIME IV SCH (02:44)
[2024-08-12] MEDS: WATER IV SCH (02:44)
[2024-08-12] MEDS ORDERED: CEFEPIME IV SCH (03:00)
[2024-08-12] MEDS ORDERED: DEXTROSE 5% IV SCH (03:00)
[2024-08-12] MEDS ORDERED: WATER IV SCH (03:00)
[2024-08-12] MEDS: VANCOMYCIN 500MG PREMIX 100 ML IV SCH (21:57)
[2024-08-13] VITALS: BP 97/55; PULSE 91; RESP 18; TEMP 36.28068; O2SAT 95
[2024-08-13 04:00] VITALS: BP_SYST 68; BP_SYST 87; BP_DIAS 44; BP_DIAS 51; PULSE 94; RESP 18; TEMP 36.114; O2SAT 95
[2024-08-13] MEDS: CEFEPIME 1GM PREMIX 50ML IV SCH (04:00)
[2024-08-13] MEDS: MIDODRINE HCL 5MG TABLET PO NR (06:05)
[2024-08-13 08:00] VITALS: BP 91/51; PULSE 87; RESP 18; TEMP 36.6696; O2SAT 97
[2024-08-13 12:00] VITALS: BP 94/57; PULSE 78; RESP 18; TEMP 36.3918; O2SAT 98
[2024-08-13 16:00] VITALS: BP 100/65; PULSE 75; RESP 18; TEMP 36.44736; O2SAT 95
[2024-08-13] MEDS: DIPHENHYDRAMINE 50MG/ML VIAL IV PRN (18:09)
[2024-08-13 20:00] VITALS: BP 99/56; PULSE 69; RESP 18; TEMP 36.28068; O2SAT 98
[2024-08-13 22:51] LABS: CHLORIDE 98 mEq/L (98-107); POTASSIUM 4.8 mEq/L (3.5-5.1); SODIUM 136 mEq/L (136-145)
[2024-08-13 22:52] LABS: CARBON DIOXIDE 26 mEq/L (21-32)
[2024-08-13 22:53] LABS: DIFFERENTIAL COMMENT 1; HEMATOCRIT. 29.8 % (36.0-48.0); HEMOGLOBIN. 9.8 g/dL (12.0-16.0); MEAN CORPUSCULAR HEMOGLOBIN 26.8 pg (28.0-32.0); MEAN CORPUSCULAR VOLUME 81.2 fL (81.0-99.0); MEAN PLATELET VOLUME 8.9 fl (7.4-10.4); PLATELET 195 x1000/uL (130-400); RED BLOOD CELL COUNT 3.67 mill/uL (4.2-5.4); RED CELL DISTRIBUTION WIDTH 15.9 % (11.6-14.6); WHITE BLOOD COUNT 6.3 x1000/uL (4.5-11.0)
[2024-08-13 23:22] LABS: ANISOCYTOSIS 1+; PLATELET ESTIMATE NORMAL
[2024-08-14] VITALS: BP 90/56; PULSE 80; RESP 18; TEMP 36.3918; O2SAT 98
[2024-08-14 04:00] VITALS: BP 108/61; PULSE 87; RESP 18; TEMP 36.28068; O2SAT 99
[2024-08-14 08:00] VITALS: PULSE 80; RESP 17; TEMP 35.72508; O2SAT 100
[2024-08-14 12:00] VITALS: BP 97/51; PULSE 83; RESP 16; TEMP 37.11408; O2SAT 100
[2024-08-14 20:00] VITALS: BP 95/58; PULSE 77; RESP 15; TEMP 36.50292; O2SAT 97
[2024-08-15] VITALS (8 sets, daily range): BP systolic 85–118; BP diastolic 50–78; PULSE 70–102; RESP 16–18; TEMP 36.50292–37.00296; O2SAT 92–97
[2024-08-15] MEDS: VANCOMYCIN 500MG PREMIX 100 ML IV SCH (21:00)
[2024-08-16] VITALS: BP 96/58; PULSE 99; RESP 20; TEMP 36.55848; O2SAT 97
[2024-08-16 00:15] VITALS: BP 101/72; PULSE 98
[2024-08-16 00:45] VITALS: BP 105/69; PULSE 95
[2024-08-16 01:15] VITALS: BP 100/70; PULSE 99
[2024-08-16 01:16] VITALS: BP 105/70; PULSE 90; RESP 16; TEMP 36.114
[2024-08-16 04:00] VITALS: BP 98/59; PULSE 98; RESP 19; TEMP 36.78072; O2SAT 98
[2024-08-16] MEDS: VANCOMYCIN 500MG PREMIX 100 ML IV SCH (12:00)
[2024-08-17] VITALS: BP 85/51; PULSE 68; RESP 17; TEMP 36.22512
[2024-08-17 04:00] VITALS: BP 93/56; PULSE 91; RESP 18; TEMP 36.16956
[2024-08-17 11:59] VITALS: BP 92/50; PULSE 101; RESP 18; TEMP 36.114; O2SAT 100
[2024-08-17 16:00] VITALS: BP 108/50; PULSE 100; RESP 20; TEMP 36.6696; O2SAT 100
[2024-08-17 20:00] VITALS: BP 98/52; PULSE 98; RESP 20; TEMP 36.61404; O2SAT 100
[2024-08-17] MEDS: CEFUROXIME AXETIL 500MG TABLET PO SCH (20:00)
[2024-08-18] VITALS (9 sets, daily range): BP systolic 95–135; BP diastolic 50–79; PULSE 82–105; RESP 18–20; TEMP 36.00288–36.61404; O2SAT 99–100
[2024-08-18] MEDS: LINEZOLID 600MG TABLET PO SCH (08:23)
[2024-08-18 11:41] LABS: POTASSIUM 3.2 mEq/L (3.5-5.1)
[2024-08-18 11:42] LABS: CALCIUM 7.3 mg/dL (8.7-10.4)
[2024-08-18 11:44] LABS: POTASSIUM 3.2 mEq/L (3.5-5.1)
[2024-08-18 11:45] LABS: CALCIUM 7.4 mg/dL (8.7-10.4)
[2024-08-18 11:55] LABS: CREATININE 6.7 mg/dL (0.6-1.0)
[2024-08-18 11:57] LABS: CREATININE 6.7 mg/dL (0.6-1.0)
[2024-08-18 12:05] LABS: HEPATITIS B SURFACE AB 21.1 mIU/mL (<10)
[2024-08-18 12:17] LABS: HEPATITIS B SURFACE ANTIGEN NEGATIVE (Negative)
[2024-08-18 12:37] LABS: HEPATITIS A AB IGM NEGATIVE (Negative)
[2024-08-18 12:38] LABS: HEPATITIS B CORE AB IGM NEGATIVE (Negative)
[2024-08-18 12:39] LABS: HEPATITIS C AB NON REACTIVE (Neg) (Negative)
[2024-08-19] VITALS: BP 104/63; PULSE 52; RESP 18; TEMP 36.55848; O2SAT 78
[2024-08-19] MEDS: CEFUROXIME AXETIL 250MG TABLET PO SCH (00:52)
[2024-08-19 20:00] VITALS: BP 111/73; PULSE 89; RESP 18; TEMP 36.3918; O2SAT 95
[2024-08-20] VITALS: BP 112/58; PULSE 55; RESP 16; TEMP 36.61404; O2SAT 99
[2024-08-20 04:00] VITALS: BP 98/61; PULSE 57; RESP 16; TEMP 35.66952; O2SAT 95
[2024-08-20 12:00] VITALS: BP 99/62; PULSE 67; RESP 19; TEMP 35.94732; O2SAT 100
[2024-08-20 20:00] VITALS: BP 113/65; PULSE 88; RESP 18; TEMP 36.114; O2SAT 100
[2024-08-21] VITALS (13 sets, daily range): BP systolic 112–138; BP diastolic 65–88; PULSE 74–102; RESP 16–20; TEMP 36.05844–36.78072; O2SAT 94–99
[2024-08-22] VITALS: BP 110/72; PULSE 90; RESP 20; TEMP 36.78072; O2SAT 98
[2024-08-22 04:00] VITALS: BP 120/61; PULSE 86; RESP 20; TEMP 36.44736; O2SAT 98
[2024-08-22 08:00] VITALS: BP 109/72; PULSE 91; RESP 17; TEMP 36.50292; O2SAT 100
[2024-08-22 16:00] VITALS: BP 117/76; PULSE 78; RESP 19; TEMP 36.05844; O2SAT 100
[2024-08-22 20:00] VITALS: BP 108/56; PULSE 83; RESP 18; TEMP 36.33624; O2SAT 98
[2024-08-23] VITALS (12 sets, daily range): BP systolic 96–122; BP diastolic 54–76; PULSE 60–90; RESP 16–20; TEMP 36.05844–36.72516; O2SAT 97–100
[2024-08-23 15:17] LABS: POTASSIUM 3.5 mEq/L (3.5-5.1)
[2024-08-23 15:18] LABS: CALCIUM 6.5 mg/dL (8.7-10.4)
[2024-08-23 15:23] LABS: CREATININE 7.7 mg/dL (0.6-1.0)
[2024-08-24] VITALS: BP_SYST 111; BP_SYST 95; BP_DIAS 65; BP_DIAS 67; PULSE 77; PULSE 80; RESP 18; RESP 20; TEMP 36.44736; TEMP 36.6696; O2SAT 95; O2SAT 98
[2024-08-24 04:00] VITALS: BP 113/70; PULSE 68; RESP 20; TEMP 36.50292; O2SAT 97
[2024-08-24 08:00] VITALS: BP 123/74; PULSE 79; RESP 18; TEMP 36.22512; O2SAT 98
[2024-08-24 12:00] VITALS: BP 103/64; PULSE 81; RESP 19; TEMP 36.28068; O2SAT 97
[2024-08-24 20:00] VITALS: BP 95/39; PULSE 76; RESP 16; TEMP 36.22512
[2024-08-24] MEDS: LACTOBACILLUS RHAMNOSUS GG CAP PO SCH (20:00)
[2024-08-25] VITALS (12 sets, daily range): BP systolic 95–129; BP diastolic 64–89; PULSE 77–97; RESP 15–20; TEMP 36.114–36.61404; O2SAT 95–99
[2024-08-26 04:00] VITALS: BP 117/73; PULSE 79; RESP 18; TEMP 36.22512; O2SAT 95
[2024-08-26 08:00] VITALS: BP 95/51; PULSE 78; RESP 20; TEMP 36.00288; O2SAT 99
[2024-08-26 20:00] VITALS: BP 111/45; PULSE 55; RESP 18; TEMP 35.8362; O2SAT 100
[2024-08-27] VITALS: BP 128/74; PULSE 69; RESP 18; TEMP 36.22512; O2SAT 100
[2024-08-27 08:00] VITALS: BP 122/80; PULSE 71; RESP 20; TEMP 36.00288; O2SAT 99
[2024-08-27 20:00] VITALS: BP 117/79; PULSE 94; RESP 18; TEMP 36.3918
[2024-08-28] VITALS (13 sets, daily range): BP systolic 110–132; BP diastolic 50–82; PULSE 73–95; RESP 16–20; TEMP 36.114–36.6696; O2SAT 90–100
[2024-08-29] VITALS: BP 124/87; PULSE 89; RESP 16; TEMP 36.83628; O2SAT 97
[2024-08-30 08:00] VITALS: BP 124/74; PULSE 78; RESP 18; TEMP 36.114; O2SAT 97
[2024-08-31 04:00] VITALS: BP 99/65; PULSE 89; RESP 18; TEMP 36.33624; O2SAT 97
[2024-08-31 08:00] VITALS: BP 112/71; PULSE 76; RESP 18; TEMP 36.114; O2SAT 99
[2024-08-31 12:00] VITALS: BP 131/66; PULSE 76; RESP 16; TEMP 36.28068; O2SAT 95
[2024-08-31 20:00] VITALS: BP 140/93; PULSE 94; RESP 18; TEMP 36.3918; O2SAT 97
[2024-09-01] VITALS (13 sets, daily range): BP systolic 136–167; BP diastolic 80–101; PULSE 80–100; RESP 16–20; TEMP 36.114–36.55848; O2SAT 95–99
[2024-09-01 11:06] LABS: BASOPHILS % 0.7 % (0.0-2.0); HEMATOCRIT. 27.1 % (36.0-48.0); HEMOGLOBIN. 8.8 g/dL (12.0-16.0); LYMPHOCYTES % 18.5 % (20.0-50.0); MEAN CORPUSCULAR HGB CONC 32.4 g/dL (31.0-37.0); MEAN CORPUSCULAR VOLUME 80.4 fL (81.0-99.0); MEAN PLATELET VOLUME 8.9 fl (7.4-10.4); MONOCYTES % 8.7 % (2.0-8.0); NEUTROPHILS % 59.1 % (40.0-76.0); PLATELET 130 x1000/uL (130-400); RED BLOOD CELL COUNT 3.37 mill/uL (4.2-5.4); RED CELL DISTRIBUTION WIDTH 15.3 % (11.6-14.6); WHITE BLOOD COUNT 4.9 x1000/uL (4.5-11.0)
[2024-09-01 11:10] LABS: POTASSIUM 3.1 mEq/L (3.5-5.1)
[2024-09-01 11:12] LABS: CALCIUM 6.7 mg/dL (8.7-10.4)
[2024-09-01 11:19] LABS: PHOSPHORUS 3.4 mg/dL (2.5-4.9)
[2024-09-01 11:33] LABS: CREATININE 8.3 mg/dL (0.6-1.0)
[2024-09-01] MEDS: HEPARIN 5000 UNITS/ML VIAL SUBCUT SCH (21:00)
[2024-09-02] VITALS: BP 111/41; PULSE 88; RESP 18; TEMP 36.50292; O2SAT 95
[2024-09-02 07:55] VITALS: BP 132/53; PULSE 96; RESP 20; TEMP 36.6696; O2SAT 100
[2024-09-02 11:44] VITALS: BP 112/50; PULSE 91; RESP 20; TEMP 36.114; O2SAT 100
[2024-09-03] VITALS: BP 131/65; PULSE 82; RESP 18; TEMP 36.114; O2SAT 99
[2024-09-03 04:00] VITALS: RESP 18
[2024-09-03 14:14] VITALS: BP 133/72; PULSE 80; RESP 18; TEMP 37.00296; O2SAT 99
[2024-09-04] VITALS (10 sets, daily range): BP systolic 102–153; BP diastolic 66–86; PULSE 65–84; RESP 16–20; TEMP 36.55848–36.6696; O2SAT 100
[2024-09-05 04:00] VITALS: BP 121/82; PULSE 100; RESP 18; TEMP 36.44736; O2SAT 100
[2024-09-05 07:57] VITALS: BP 124/64; PULSE 91; RESP 20; TEMP 36.114; O2SAT 99
[2024-09-05 12:00] VITALS: BP 124/72; PULSE 89; RESP 20; TEMP 36.6696; O2SAT 99
[2024-09-05 16:00] VITALS: BP 132/77; PULSE 88; RESP 18; TEMP 36.6696; O2SAT 99
[2024-09-06] VITALS (11 sets, daily range): BP systolic 118–146; BP diastolic 64–99; PULSE 85–117; RESP 15–20; TEMP 36.05844–37.00296; O2SAT 99–100
[2024-09-06 12:14] LABS: BASOPHILS % 0.5 % (0.0-2.0); EOSINOPHILS % 12.5 % (0.0-5.0); HEMATOCRIT. 26.9 % (36.0-48.0); HEMOGLOBIN. 8.8 g/dL (12.0-16.0); LYMPHOCYTES % 17.2 % (20.0-50.0); MEAN CORPUSCULAR HEMOGLOBIN 26.3 pg (28.0-32.0); MEAN CORPUSCULAR HGB CONC 32.8 g/dL (31.0-37.0); MEAN CORPUSCULAR VOLUME 80.2 fL (81.0-99.0); MEAN PLATELET VOLUME 9.1 fl (7.4-10.4); MONOCYTES % 9.1 % (2.0-8.0); NEUTROPHILS % 60.7 % (40.0-76.0); PLATELET 140 x1000/uL (130-400); RED BLOOD CELL COUNT 3.35 mill/uL (4.2-5.4); RED CELL DISTRIBUTION WIDTH 15.6 % (11.6-14.6); WHITE BLOOD COUNT 6.3 x1000/uL (4.5-11.0)
[2024-09-06 12:30] LABS: CALCIUM 6.9 mg/dL (8.7-10.4)
[2024-09-06 13:18] LABS: CREATININE 7.5 mg/dL (0.6-1.0)
[2024-09-07] VITALS: BP 132/89; PULSE 99; RESP 19; TEMP 36.61404; O2SAT 97
[2024-09-07 04:00] VITALS: BP 131/89; PULSE 102; RESP 19; TEMP 36.33624; O2SAT 96
[2024-09-07 11:44] VITALS: BP 129/96; PULSE 106; RESP 18; TEMP 36.00288; O2SAT 98
[2024-09-08] VITALS (13 sets, daily range): BP systolic 91–154; BP diastolic 47–99; PULSE 77–117; RESP 16–20; TEMP 36.00288–36.61404; O2SAT 95–100
[2024-09-09 08:00] VITALS: BP 128/80; PULSE 100; RESP 18; TEMP 36.16956; O2SAT 97
[2024-09-09 12:00] VITALS: BP 122/79; PULSE 108; RESP 17; TEMP 36.61404; O2SAT 99
[2024-09-09 14:00] VITALS: BP 122/79; PULSE 108; RESP 17; TEMP 36.61404; O2SAT 99
[2024-09-09 16:00] VITALS: BP 125/77; PULSE 110; RESP 17; TEMP 36.55848; O2SAT 96
[2024-09-09 20:00] VITALS: BP 120/75; PULSE 101; RESP 19; TEMP 36.44736; O2SAT 96
[2024-09-10] VITALS: BP 119/75; PULSE 100; RESP 18; TEMP 36.3918; O2SAT 99
[2024-09-10 12:00] VITALS: BP 134/77; PULSE 102; RESP 18; TEMP 36.33624; O2SAT 96
[2024-09-10] MEDS ORDERED: ONDANSETRON HCL 4MG/2ML INJ IV PRN (14:45)
[2024-09-10] MEDS ORDERED: CLONIDINE 0.1MG TABLET PO PRN (14:45)
[2024-09-10] MEDS ORDERED: ZOLPIDEM TARTRATE 5MG TABLET PO PRN (14:45)
[2024-09-10 16:00] VITALS: BP 113/71; PULSE 105; RESP 18; TEMP 36.28068; O2SAT 96
[2024-09-10 20:00] VITALS: BP 123/76; PULSE 102; RESP 18; TEMP 36.114; O2SAT 98
[2024-09-11] VITALS (11 sets, daily range): BP systolic 102–138; BP diastolic 65–98; PULSE 96–112; RESP 16–20; TEMP 36.22512–36.83628; O2SAT 97–100
[2024-09-11] MEDS: PANTOPRAZOLE 40MG DR TABLET PO SCH (06:43)
[2024-09-11] MEDS: DIPHENHYDRAMINE 50MG/ML VIAL IV PRN (14:03)
[2024-09-12 06:25] VITALS: BP 115/82; PULSE 92; RESP 20; TEMP 36.50292; O2SAT 99
[2024-09-12 08:00] VITALS: BP 125/64; PULSE 109; RESP 18; TEMP 36.114; O2SAT 98
[2024-09-12 12:00] VITALS: BP 111/65; PULSE 114; RESP 18; TEMP 36.6696; O2SAT 98
[2024-09-12 16:00] VITALS: BP 105/60; PULSE 113; RESP 18; TEMP 36.6696; O2SAT 98
[2024-09-13] VITALS (12 sets, daily range): BP systolic 97–135; BP diastolic 54–82; PULSE 89–112; RESP 16–20; TEMP 36.114–41.1144; O2SAT 98–100
[2024-09-13 14:28] LABS: BASOPHILS % 1.1 % (0.0-2.0); EOSINOPHILS % 9.9 % (0.0-5.0); HEMATOCRIT. 27.9 % (36.0-48.0); LYMPHOCYTES % 25.3 % (20.0-50.0); MEAN CORPUSCULAR HEMOGLOBIN 26.1 pg (28.0-32.0); MEAN CORPUSCULAR HGB CONC 32.3 g/dL (31.0-37.0); MEAN CORPUSCULAR VOLUME 80.7 fL (81.0-99.0); MONOCYTES % 11.9 % (2.0-8.0); NEUTROPHILS % 51.8 % (40.0-76.0); PLATELET 158 x1000/uL (130-400); RED BLOOD CELL COUNT 3.46 mill/uL (4.2-5.4); RED CELL DISTRIBUTION WIDTH 15.7 % (11.6-14.6); WHITE BLOOD COUNT 3.9 x1000/uL (4.5-11.0)
[2024-09-13 14:53] LABS: POTASSIUM 3.2 mEq/L (3.5-5.1)
[2024-09-13 14:55] LABS: CALCIUM 6.7 mg/dL (8.7-10.4)
[2024-09-13 15:31] LABS: CREATININE 7.3 mg/dL (0.6-1.0)
[2024-09-14 08:00] VITALS: BP 115/73; PULSE 75; RESP 19; TEMP 36.05844; O2SAT 98
[2024-09-14 12:00] VITALS: BP 90/50; PULSE 79; RESP 16; TEMP 36.44736; O2SAT 100
[2024-09-14 20:00] VITALS: BP 117/65; PULSE 104; RESP 18; TEMP 36.78072; O2SAT 100
[2024-09-15] VITALS (12 sets, daily range): BP systolic 102–127; BP diastolic 55–67; PULSE 98–115; RESP 15–20; TEMP 36.44736–37.05852; O2SAT 98–100
[2024-09-16] VITALS: BP 104/62; PULSE 100; RESP 18; TEMP 36.6696
[2024-09-16] MEDS: SODIUM CHLORIDE 0.9% 250 ML IV ONE (15:08)
[2024-09-16 15:30] VITALS: BP 83/43
[2024-09-16 16:00] VITALS: BP 92/43; PULSE 98; RESP 20; TEMP 36.00288; O2SAT 98
[2024-09-16 16:05] VITALS: BP 94/49
[2024-09-17 08:00] VITALS: PULSE 88; RESP 16; TEMP 36.44736; O2SAT 96
[2024-09-17 12:00] VITALS: BP 104/62; PULSE 92; RESP 18; TEMP 36.16956; O2SAT 96
[2024-09-17 16:00] VITALS: BP 108/65; PULSE 99; RESP 18; TEMP 36.50292; O2SAT 95
[2024-09-17 20:00] VITALS: BP 116/63; PULSE 106; RESP 18; TEMP 36.00288; O2SAT 100
[2024-09-18] VITALS (13 sets, daily range): BP systolic 102–151; BP diastolic 59–91; PULSE 65–121; RESP 14–20; TEMP 36.33624–36.72516; O2SAT 99–100
[2024-09-18 17:03] LABS: CHLORIDE 102 mEq/L (98-107); SODIUM 139 mEq/L (136-145)
[2024-09-18 17:04] LABS: CARBON DIOXIDE 23 mEq/L (21-32)
[2024-09-18] MEDS: POTASSIUM CHLORIDE 20MEQ TABLET SR PO NR (21:26)
[2024-09-19 08:00] VITALS: BP 100/61; PULSE 102; RESP 16; TEMP 37.00296; O2SAT 100
[2024-09-19] MEDS: HEPARIN 5000 UNITS/ML VIAL SUBCUT SCH (08:53)
[2024-09-19 16:00] VITALS: BP 88/42; PULSE 103; RESP 20; TEMP 36.44736; O2SAT 100
[2024-09-19 20:00] VITALS: BP 122/56; PULSE 95; RESP 16; TEMP 36.89184; O2SAT 100
[2024-09-19 21:13] VITALS: BP 122/56; PULSE 95; RESP 16; TEMP 36.89184; O2SAT 100
[2024-09-20 08:00] VITALS: BP 99/60; PULSE 89; RESP 16; TEMP 36.114; O2SAT 97
[2024-09-20 12:00] VITALS: BP 81/42; PULSE 97; RESP 16; TEMP 36.16956; O2SAT 97
[2024-09-20 16:00] VITALS: BP 84/49; PULSE 95; RESP 16; TEMP 36.44736; O2SAT 97
[2024-09-20 17:00] VITALS: BP 107/60
[2024-09-20 20:00] VITALS: BP 95/54; PULSE 86; RESP 18; TEMP 36.3918; O2SAT 100
[2024-09-21] VITALS (10 sets, daily range): BP systolic 98–141; BP diastolic 56–86; PULSE 90–107; RESP 16–19; TEMP 36.16956–36.61404; O2SAT 95–100
[2024-09-22 08:00] VITALS: BP 108/48; PULSE 101; RESP 20; TEMP 36.16956; O2SAT 98
[2024-09-22 12:00] VITALS: BP 126/73; PULSE 93; RESP 20; TEMP 36.00288; O2SAT 99
[2024-09-22 16:00] VITALS: BP 139/69; PULSE 108; RESP 20; TEMP 36.22512; O2SAT 100
[2024-09-22 20:00] VITALS: BP 91/50; PULSE 102; RESP 17; TEMP 38.11416; O2SAT 99
[2024-09-22] MEDS: ACETAMINOPHEN 325MG TABLET PO PRN (20:58)
[2024-09-23] VITALS (13 sets, daily range): BP systolic 12–131; BP diastolic 54–85; PULSE 82–100; RESP 15–20; TEMP 36.28068–37.00296; O2SAT 93–100
[2024-09-23 10:34] LABS: BASOPHILS % 1.5 % (0.0-2.0); HEMATOCRIT. 23.8 % (36.0-48.0); HEMOGLOBIN. 7.8 g/dL (12.0-16.0); LYMPHOCYTES % 29.4 % (20.0-50.0); MEAN CORPUSCULAR HEMOGLOBIN 26.5 pg (28.0-32.0); MEAN CORPUSCULAR HGB CONC 32.8 g/dL (31.0-37.0); MEAN CORPUSCULAR VOLUME 80.8 fL (81.0-99.0); MEAN PLATELET VOLUME 8.8 fl (7.4-10.4); MONOCYTES % 10.3 % (2.0-8.0); NEUTROPHILS % 50.8 % (40.0-76.0); PLATELET 178 x1000/uL (130-400); RED BLOOD CELL COUNT 2.95 mill/uL (4.2-5.4); RED CELL DISTRIBUTION WIDTH 16.1 % (11.6-14.6); WHITE BLOOD COUNT 2.8 x1000/uL (4.5-11.0)
[2024-09-23 10:50] LABS: POTASSIUM 3.8 mEq/L (3.5-5.1)
[2024-09-23 10:51] LABS: CALCIUM 6.6 mg/dL (8.7-10.4)
[2024-09-23 11:27] LABS: CREATININE 7.2 mg/dL (0.6-1.0)
[2024-09-24] VITALS: BP 102/65; PULSE 100; RESP 18; TEMP 36.44736; O2SAT 95
[2024-09-24] MEDS: SODIUM CHLORIDE 0.9% 250 ML IV ONE (09:32)
[2024-09-24 12:00] VITALS: BP 111/55; PULSE 105; RESP 18; TEMP 36.114; O2SAT 100
[2024-09-24 16:00] VITALS: BP 94/60; PULSE 92; RESP 18; TEMP 36.89184; O2SAT 97
[2024-09-24 20:00] VITALS: BP 106/64; PULSE 96; RESP 20; TEMP 36.55848; O2SAT 100
[2024-09-26] VITALS (12 sets, daily range): BP systolic 92–140; BP diastolic 51–78; PULSE 75–101; RESP 16–18; TEMP 25.5576–36.83628; O2SAT 97–99
[2024-09-27] VITALS: BP 131/61; PULSE 100; RESP 18; TEMP 36.78072; O2SAT 100
[2024-09-27 04:00] VITALS: BP 118/77; PULSE 91; RESP 18; TEMP 36.55848; O2SAT 100
[2024-09-27 08:00] VITALS: BP 147/32; PULSE 87; RESP 19; TEMP 36.16956; O2SAT 96
[2024-09-27] MEDS ORDERED: LIDOCAINE HCL 1% 10 MG/ML 10ML VIAL ONE (09:10)
[2024-09-27 12:00] VITALS: BP 126/59; PULSE 86; RESP 19; TEMP 36.3918; O2SAT 99
[2024-09-27 16:00] VITALS: BP 123/62; PULSE 80; RESP 19; TEMP 36.00288; O2SAT 99
[2024-09-27 20:00] VITALS: BP 123/71; PULSE 110; RESP 18; TEMP 36.78072; O2SAT 100
[2024-09-28] VITALS: BP 119/76; PULSE 102; RESP 18; TEMP 36.55848; O2SAT 99
[2024-09-28 04:00] VITALS: BP 131/82; PULSE 98; RESP 18; TEMP 36.50292; O2SAT 100
[2024-09-28 08:00] VITALS: BP 117/61; PULSE 70; RESP 19; TEMP 36.55848; O2SAT 99
[2024-09-28 12:00] VITALS: BP 115/59; PULSE 69; RESP 19; TEMP 36.83628; O2SAT 99
[2024-09-28 16:00] VITALS: BP 119/63; PULSE 75; RESP 18; TEMP 36.6696; O2SAT 99
[2024-09-28 20:00] VITALS: BP 110/57; PULSE 110; RESP 18; TEMP 36.72516; O2SAT 98
[2024-09-29] VITALS (11 sets, daily range): BP systolic 101–130; BP diastolic 53–96; PULSE 91–116; RESP 16–19; TEMP 35.5584–36.61404; O2SAT 100
[2024-09-29 12:25] LABS: INR 1.2; PROTHROMBIN TIME 13.1 sec (9.6-11.0)
[2024-09-29 12:28] LABS: BASOPHILS % 0.8 % (0.0-2.0); EOSINOPHILS % 9.8 % (0.0-5.0); HEMATOCRIT. 23.2 % (36.0-48.0); HEMOGLOBIN. 7.3 g/dL (12.0-16.0); LYMPHOCYTES % 20.8 % (20.0-50.0); MEAN CORPUSCULAR HEMOGLOBIN 25.6 pg (28.0-32.0); MEAN CORPUSCULAR HGB CONC 31.5 g/dL (31.0-37.0); MEAN CORPUSCULAR VOLUME 81.3 fL (81.0-99.0); MEAN PLATELET VOLUME 8.6 fl (7.4-10.4); MONOCYTES % 11.3 % (2.0-8.0); NEUTROPHILS % 57.3 % (40.0-76.0); PLATELET 161 x1000/uL (130-400); RED BLOOD CELL COUNT 2.85 mill/uL (4.2-5.4); RED CELL DISTRIBUTION WIDTH 15.5 % (11.6-14.6); WHITE BLOOD COUNT 3.8 x1000/uL (4.5-11.0)
[2024-09-29 13:05] LABS: CREATININE 8.3 mg/dL (0.6-1.0)
[2024-09-29 13:08] LABS: CALCIUM 5.7 mg/dL (8.7-10.4)
[2024-09-30] MEDS: CALCIUM CARBONATE 500MG TABLET CHEW PO SCH (07:50)
[2024-09-30 08:00] VITALS: PULSE 96; RESP 18; TEMP 36.114; O2SAT 97
[2024-09-30 12:00] VITALS: BP 97/50; PULSE 104; RESP 18; TEMP 36.61404; O2SAT 98
[2024-09-30 20:00] VITALS: BP 107/71; PULSE 99; RESP 17; TEMP 36.44736; O2SAT 97
[2024-10-01 11:49] VITALS: BP 103/45; PULSE 96; RESP 18; TEMP 36.6696; O2SAT 99
[2024-10-01 15:56] VITALS: BP 97/50; PULSE 97; RESP 18; TEMP 36.00288; O2SAT 99
[2024-10-01 20:00] VITALS: BP 105/66; PULSE 96; RESP 17; TEMP 36.3918; O2SAT 96
[2024-10-02] VITALS (11 sets, daily range): BP systolic 103–140; BP diastolic 37–86; PULSE 79–98; RESP 15–19; TEMP 36.22512–36.50292; O2SAT 98–100
[2024-10-02] MEDS: HEPARIN 5000 UNITS/ML VIAL SUBCUT SCH (09:00)
[2024-10-02 12:06] LABS: BASOPHILS % 0.8 % (0.0-2.0); EOSINOPHILS % 8.1 % (0.0-5.0); HEMATOCRIT. 25.9 % (36.0-48.0); HEMOGLOBIN. 8.4 g/dL (12.0-16.0); LYMPHOCYTES % 18.6 % (20.0-50.0); MEAN CORPUSCULAR HEMOGLOBIN 25.9 pg (28.0-32.0); MEAN CORPUSCULAR HGB CONC 32.2 g/dL (31.0-37.0); MEAN CORPUSCULAR VOLUME 80.6 fL (81.0-99.0); MEAN PLATELET VOLUME 8.6 fl (7.4-10.4); MONOCYTES % 6.6 % (2.0-8.0); NEUTROPHILS % 65.9 % (40.0-76.0); PLATELET 176 x1000/uL (130-400); RED BLOOD CELL COUNT 3.22 mill/uL (4.2-5.4); RED CELL DISTRIBUTION WIDTH 14.9 % (11.6-14.6); WHITE BLOOD COUNT 4.8 x1000/uL (4.5-11.0)
[2024-10-02 12:22] LABS: POTASSIUM 4.5 mEq/L (3.5-5.1)
[2024-10-02 12:23] LABS: CALCIUM 6.8 mg/dL (8.7-10.4)
[2024-10-02 12:39] LABS: CREATININE 6.3 mg/dL (0.6-1.0)
[2024-10-03 12:00] VITALS: BP 108/52; PULSE 79; RESP 19; TEMP 36.6; O2SAT 98
[2024-10-03 16:00] VITALS: BP 106/59; PULSE 75; RESP 18; TEMP 36.4; O2SAT 99
[2024-10-04] VITALS (10 sets, daily range): BP systolic 93–140; BP diastolic 50–88; PULSE 73–104; RESP 15–20; TEMP 36.55848–36.8; O2SAT 95–100
[2024-10-04 19:33] LABS: EOSINOPHILS % 10.3 % (0.0-5.0); HEMATOCRIT. 26.4 % (36.0-48.0); HEMOGLOBIN. 8.6 g/dL (12.0-16.0); LYMPHOCYTES % 23.8 % (20.0-50.0); MEAN CORPUSCULAR HEMOGLOBIN 26.2 pg (28.0-32.0); MEAN CORPUSCULAR HGB CONC 32.5 g/dL (31.0-37.0); MEAN CORPUSCULAR VOLUME 80.6 fL (81.0-99.0); MEAN PLATELET VOLUME 9.3 fl (7.4-10.4); NEUTROPHILS % 56.9 % (40.0-76.0); PLATELET 169 x1000/uL (130-400); RED BLOOD CELL COUNT 3.27 mill/uL (4.2-5.4); RED CELL DISTRIBUTION WIDTH 15.1 % (11.6-14.6); WHITE BLOOD COUNT 4.6 x1000/uL (4.5-11.0)
[2024-10-04 19:40] LABS: POTASSIUM 4.1 mEq/L (3.5-5.1)
[2024-10-04 19:42] LABS: CALCIUM 6.3 mg/dL (8.7-10.4)
[2024-10-04 19:52] LABS: CREATININE 6.9 mg/dL (0.6-1.0)
[2024-10-05] VITALS: BP 132/76; PULSE 101; RESP 20; TEMP 35.7; O2SAT 100
[2024-10-05 08:00] VITALS: BP 108/66; PULSE 90; RESP 19; TEMP 36.4; O2SAT 100
[2024-10-05 12:00] VITALS: BP 110/70; PULSE 95; RESP 20; TEMP 36.6; O2SAT 100
[2024-10-05 16:00] VITALS: BP 115/67; PULSE 89; RESP 19; TEMP 35.7; O2SAT 100
[2024-10-05] MEDS: LACTOBACILLUS RHAMNOSUS GG CAP PO SCH (19:45)
[2024-10-05 20:00] VITALS: BP 116/51; PULSE 86; RESP 16; TEMP 36.7; O2SAT 98
[2024-10-06] VITALS (13 sets, daily range): BP systolic 101–140; BP diastolic 52–90; PULSE 82–96; RESP 16–21; TEMP 36.1–37.00296; O2SAT 97–100
[2024-10-06 15:46] LABS: BASOPHILS % 0.9 % (0.0-2.0); EOSINOPHILS % 9.5 % (0.0-5.0); HEMATOCRIT. 23.7 % (36.0-48.0); HEMOGLOBIN. 7.7 g/dL (12.0-16.0); LYMPHOCYTES % 19.3 % (20.0-50.0); MEAN CORPUSCULAR HGB CONC 32.5 g/dL (31.0-37.0); MEAN PLATELET VOLUME 9.1 fl (7.4-10.4); MONOCYTES % 8.9 % (2.0-8.0); NEUTROPHILS % 61.4 % (40.0-76.0); PLATELET 142 x1000/uL (130-400); RED BLOOD CELL COUNT 2.96 mill/uL (4.2-5.4); RED CELL DISTRIBUTION WIDTH 15.3 % (11.6-14.6); WHITE BLOOD COUNT 4.2 x1000/uL (4.5-11.0)
[2024-10-06 15:59] LABS: POTASSIUM 4.1 mEq/L (3.5-5.1)
[2024-10-06 16:00] LABS: CALCIUM 6.9 mg/dL (8.7-10.4)
[2024-10-07] VITALS: BP 123/64; PULSE 98; RESP 17; TEMP 36.5; O2SAT 100
[2024-10-07 08:00] VITALS: BP 125/80; PULSE 99; RESP 18; TEMP 36.6; O2SAT 99
[2024-10-07 12:00] VITALS: BP 124/83; PULSE 97; RESP 18; TEMP 36.5; O2SAT 100
[2024-10-07 16:00] VITALS: BP 128/87; PULSE 97; RESP 18; TEMP 36.4; O2SAT 100
[2024-10-07 20:00] VITALS: BP 132/85; PULSE 109; RESP 19; TEMP 36.5; O2SAT 98
[2024-10-08] VITALS: BP 128/80; PULSE 100; RESP 18; TEMP 36.1; O2SAT 99
[2024-10-08 04:00] VITALS: BP 129/67; PULSE 102; RESP 18; TEMP 36.8; O2SAT 99
[2024-10-08 12:00] VITALS: BP 116/78; PULSE 101; RESP 16; TEMP 36.6; O2SAT 95
[2024-10-08 16:00] VITALS: BP 118/62; PULSE 101; RESP 16; TEMP 36.4; O2SAT 95
[2024-10-09] VITALS (12 sets, daily range): BP systolic 104–150; BP diastolic 54–84; PULSE 76–99; RESP 15–19; TEMP 35.7–36.9; O2SAT 95–99
[2024-10-09] MEDS: DIPHENHYDRAMINE 50MG CAPSULE PO PRN (18:20)
[2024-10-09 19:09] LABS: DIFFERENTIAL COMMENT 0; EOSINOPHILS % 7.5 % (0.0-5.0); HEMATOCRIT. 25.7 % (36.0-48.0); HEMOGLOBIN. 8.5 g/dL (12.0-16.0); LYMPHOCYTES % 20.5 % (20.0-50.0); MEAN CORPUSCULAR HEMOGLOBIN 26.5 pg (28.0-32.0); MEAN CORPUSCULAR HGB CONC 33.2 g/dL (31.0-37.0); MEAN CORPUSCULAR VOLUME 79.8 fL (81.0-99.0); MEAN PLATELET VOLUME 9.5 fl (7.4-10.4); MONOCYTES % 8.1 % (2.0-8.0); NEUTROPHILS % 62.9 % (40.0-76.0); PLATELET 152 x1000/uL (130-400); RED BLOOD CELL COUNT 3.21 mill/uL (4.2-5.4); RED CELL DISTRIBUTION WIDTH 14.6 % (11.6-14.6); WHITE BLOOD COUNT 4.2 x1000/uL (4.5-11.0)
[2024-10-09 19:19] LABS: CALCIUM 6.8 mg/dL (8.7-10.4)
[2024-10-09 21:05] LABS: CREATININE 7.1 mg/dL (0.6-1.0)
[2024-10-10 04:00] VITALS: BP 114/58; PULSE 100; RESP 20; TEMP 36.3
[2024-10-10 08:00] VITALS: BP 80/54; PULSE 89; RESP 20; TEMP 36.1; O2SAT 95
[2024-10-11] VITALS (12 sets, daily range): BP systolic 101–128; BP diastolic 49–82; PULSE 71–100; RESP 16–20; TEMP 35.6–36.50292; O2SAT 95–97
[2024-10-11 20:18] LABS: BASOPHILS % 0.8 % (0.0-2.0); EOSINOPHILS % 9.9 % (0.0-5.0); HEMATOCRIT. 23.3 % (36.0-48.0); HEMOGLOBIN. 7.6 g/dL (12.0-16.0); LYMPHOCYTES % 26.3 % (20.0-50.0); MEAN CORPUSCULAR HEMOGLOBIN 26.3 pg (28.0-32.0); MEAN CORPUSCULAR HGB CONC 32.4 g/dL (31.0-37.0); MEAN CORPUSCULAR VOLUME 81.4 fL (81.0-99.0); MEAN PLATELET VOLUME 9.2 fl (7.4-10.4); PLATELET 151 x1000/uL (130-400); RED BLOOD CELL COUNT 2.87 mill/uL (4.2-5.4); RED CELL DISTRIBUTION WIDTH 14.7 % (11.6-14.6); WHITE BLOOD COUNT 4.3 x1000/uL (4.5-11.0)
[2024-10-11 20:25] LABS: POTASSIUM 3.8 mEq/L (3.5-5.1)
[2024-10-11 20:48] LABS: CALCIUM 5.7 mg/dL (8.7-10.4)
[2024-10-12] VITALS: BP 110/68; PULSE 99; RESP 18; TEMP 36.7; O2SAT 96
[2024-10-12 04:00] VITALS: BP 102/61; PULSE 85; RESP 19; TEMP 36.6; O2SAT 97
[2024-10-12 08:00] VITALS: BP 127/78; PULSE 90; RESP 19; TEMP 36.7; O2SAT 96
[2024-10-12 12:00] VITALS: BP 105/69; PULSE 90; RESP 18; TEMP 36.2; O2SAT 99
[2024-10-12 16:00] VITALS: BP 120/74; PULSE 75; RESP 18; TEMP 36.6; O2SAT 98
[2024-10-13] VITALS (14 sets, daily range): BP systolic 110–140; BP diastolic 66–85; PULSE 81–105; RESP 15–19; TEMP 36.4–37.3; O2SAT 95–99
[2024-10-13] MEDS: DIPHENHYDRAMINE 50MG/ML VIAL IV PRN (12:49)
[2024-10-13 14:46] LABS: EOSINOPHILS % 8.8 % (0.0-5.0); HEMATOCRIT. 34.5 % (36.0-48.0); LYMPHOCYTES % 17.9 % (20.0-50.0); MEAN CORPUSCULAR HEMOGLOBIN 25.5 pg (28.0-32.0); MEAN CORPUSCULAR HGB CONC 31.9 g/dL (31.0-37.0); MEAN PLATELET VOLUME 9.3 fl (7.4-10.4); MONOCYTES % 7.6 % (2.0-8.0); NEUTROPHILS % 64.7 % (40.0-76.0); PLATELET 201 x1000/uL (130-400); RED BLOOD CELL COUNT 4.31 mill/uL (4.2-5.4); WHITE BLOOD COUNT 7.6 x1000/uL (4.5-11.0)
[2024-10-13 14:53] LABS: POTASSIUM 3.3 mEq/L (3.5-5.1)
[2024-10-13 14:55] LABS: CALCIUM 9.1 mg/dL (8.7-10.4)
[2024-10-13 15:04] LABS: CREATININE 3.4 mg/dL (0.6-1.0)
[2024-10-14] VITALS: BP 118/72; PULSE 99; RESP 20; TEMP 37.2; O2SAT 98
[2024-10-14 04:00] VITALS: BP 123/72; PULSE 88; RESP 19; TEMP 36.1; O2SAT 97
[2024-10-14 12:00] VITALS: BP 108/67; PULSE 92; RESP 18; TEMP 36.5; O2SAT 97
[2024-10-14 16:00] VITALS: BP 115/74; PULSE 94; RESP 18; TEMP 36.9; O2SAT 100
[2024-10-14 20:00] VITALS: BP 133/71; PULSE 93; RESP 18; TEMP 36.7; O2SAT 99
[2024-10-15 04:00] VITALS: BP 102/55; PULSE 65; RESP 18; TEMP 36.7; O2SAT 98
[2024-10-15 07:56] VITALS: BP 127/77; PULSE 53; RESP 18; TEMP 36.8; O2SAT 100
[2024-10-15 12:00] VITALS: BP_SYST 133; BP_SYST 97; BP_DIAS 50; BP_DIAS 56; PULSE 104; PULSE 78; RESP 20; TEMP 36.6; TEMP 36.8; O2SAT 100; O2SAT 99
[2024-10-15 16:00] VITALS: BP 91/50; RESP 20; TEMP 36.8; O2SAT 100
[2024-10-16] VITALS (10 sets, daily range): BP systolic 96–141; BP diastolic 48–85; PULSE 71–105; RESP 15–20; TEMP 36.3918–37.1; O2SAT 98–100
[2024-10-16 15:56] LABS: BASOPHILS % 0.9 % (0.0-2.0); EOSINOPHILS % 8.4 % (0.0-5.0); HEMATOCRIT. 25.2 % (36.0-48.0); HEMOGLOBIN. 8.1 g/dL (12.0-16.0); LYMPHOCYTES % 24.3 % (20.0-50.0); MEAN CORPUSCULAR HEMOGLOBIN 25.8 pg (28.0-32.0); MEAN CORPUSCULAR HGB CONC 32.1 g/dL (31.0-37.0); MEAN CORPUSCULAR VOLUME 80.4 fL (81.0-99.0); MEAN PLATELET VOLUME 9.2 fl (7.4-10.4); MONOCYTES % 8.9 % (2.0-8.0); NEUTROPHILS % 57.5 % (40.0-76.0); PLATELET 162 x1000/uL (130-400); RED BLOOD CELL COUNT 3.14 mill/uL (4.2-5.4); RED CELL DISTRIBUTION WIDTH 14.6 % (11.6-14.6); WHITE BLOOD COUNT 4.4 x1000/uL (4.5-11.0)
[2024-10-16 16:04] LABS: POTASSIUM 4.4 mEq/L (3.5-5.1)
[2024-10-16 16:05] LABS: CALCIUM 6.4 mg/dL (8.7-10.4)
[2024-10-16 16:13] LABS: CREATININE 8.2 mg/dL (0.6-1.0)
[2024-10-16] MEDS: HEPARIN 5000 UNITS/ML VIAL SUBCUT SCH (20:37)
[2024-10-17] VITALS: BP 120/72; PULSE 100; RESP 19; TEMP 36.8; O2SAT 99
[2024-10-17 04:00] VITALS: BP 130/68; PULSE 101; RESP 20; TEMP 36.8; O2SAT 98
[2024-10-17] MEDS: PANTOPRAZOLE 40MG DR TABLET PO SCH (06:19)
[2024-10-18] VITALS (11 sets, daily range): BP systolic 110–135; BP diastolic 50–84; PULSE 68–97; RESP 16–19; TEMP 36.55848–36.8; O2SAT 95–100
[2024-10-18 16:08] LABS: BASOPHILS % 0.9 % (0.0-2.0); DIFFERENTIAL COMMENT 0; EOSINOPHILS % 10.1 % (0.0-5.0); HEMATOCRIT. 29.8 % (36.0-48.0); HEMOGLOBIN. 9.7 g/dL (12.0-16.0); LYMPHOCYTES % 16.8 % (20.0-50.0); MEAN CORPUSCULAR HGB CONC 32.7 g/dL (31.0-37.0); MEAN CORPUSCULAR VOLUME 79.7 fL (81.0-99.0); MEAN PLATELET VOLUME 8.9 fl (7.4-10.4); MONOCYTES % 9.1 % (2.0-8.0); NEUTROPHILS % 63.1 % (40.0-76.0); PLATELET 196 x1000/uL (130-400); RED BLOOD CELL COUNT 3.74 mill/uL (4.2-5.4); RED CELL DISTRIBUTION WIDTH 14.8 % (11.6-14.6); WHITE BLOOD COUNT 5.4 x1000/uL (4.5-11.0)
[2024-10-18 16:23] LABS: POTASSIUM 3.4 mEq/L (3.5-5.1)
[2024-10-18 16:24] LABS: CALCIUM 7.9 mg/dL (8.7-10.4)
[2024-10-18 16:31] LABS: CREATININE 4.1 mg/dL (0.6-1.0)
[2024-10-19] VITALS: BP 120/61; PULSE 98; RESP 17; TEMP 36.9; O2SAT 96
[2024-10-19 04:00] VITALS: BP 126/54; PULSE 99; RESP 19; TEMP 36.7; O2SAT 97
[2024-10-19 16:00] VITALS: BP 108/41; PULSE 60; RESP 14
[2024-10-19 20:00] VITALS: BP 114/74; PULSE 94; RESP 18; TEMP 36.4; O2SAT 100
[2024-10-20] VITALS (11 sets, daily range): BP systolic 113–138; BP diastolic 74–82; PULSE 80–97; RESP 17; TEMP 36.33624–36.5; O2SAT 97–100
[2024-10-21 20:00] VITALS: BP 115/55; PULSE 89; RESP 18; TEMP 36.1; O2SAT 98
[2024-10-22 04:00] VITALS: BP 117/64; PULSE 74; RESP 18; TEMP 36.6; O2SAT 96
[2024-10-22 08:00] VITALS: BP 129/85; PULSE 58; RESP 18; TEMP 35.8; O2SAT 96
[2024-10-22 12:00] VITALS: BP 139/86; PULSE 75; RESP 18; TEMP 36.3; O2SAT 97
[2024-10-22 16:00] VITALS: BP 127/82; PULSE 77; RESP 18; TEMP 36; O2SAT 97
[2024-10-22 20:00] VITALS: BP 97/49; PULSE 101; RESP 20; TEMP 37; O2SAT 96
[2024-10-23] VITALS (11 sets, daily range): BP systolic 101–125; BP diastolic 42–79; PULSE 69–122; RESP 16–20; TEMP 36.55848–36.9; O2SAT 67–99
[2024-10-24] VITALS: BP 94/59; PULSE 96; RESP 17; TEMP 36.2; O2SAT 95
[2024-10-24 12:00] VITALS: BP 98/50; PULSE 88; RESP 20; TEMP 36.7; O2SAT 98
[2024-10-24 16:00] VITALS: PULSE 88; RESP 20; TEMP 36.7; O2SAT 98
[2024-10-24 20:00] VITALS: BP 98/60; PULSE 96; RESP 18; TEMP 36.4; O2SAT 98
[2024-10-25] VITALS (14 sets, daily range): BP systolic 90–146; BP diastolic 40–76; PULSE 84–100; RESP 16–20; TEMP 36.2–36.8; O2SAT 95–100
[2024-10-26] VITALS: BP 115/72; PULSE 90; RESP 16; TEMP 36.8; O2SAT 100
[2024-10-26 04:00] VITALS: BP 122/76; PULSE 93; RESP 16; TEMP 36.8; O2SAT 97
[2024-10-26 08:00] VITALS: BP 122/75; PULSE 94; RESP 18; TEMP 35.9; O2SAT 98
[2024-10-26 12:00] VITALS: BP 119/65; PULSE 98; RESP 17; TEMP 36.6; O2SAT 100
[2024-10-26 16:00] VITALS: BP 104/58; PULSE 94; RESP 18; TEMP 36.6; O2SAT 100
[2024-10-26 20:00] VITALS: BP_SYST 110; PULSE 113; RESP 16; TEMP 36.8; O2SAT 96
[2024-10-27] VITALS (13 sets, daily range): BP systolic 90–118; BP diastolic 42–88; PULSE 52–110; RESP 16–18; TEMP 36.3–36.9; O2SAT 95–100
[2024-10-27 16:08] LABS: POTASSIUM 3.2 mEq/L (3.5-5.1)
[2024-10-27 16:09] LABS: CALCIUM 8.5 mg/dL (8.7-10.4)
[2024-10-27 16:14] LABS: CREATININE 3.5 mg/dL (0.6-1.0)
[2024-10-27] MEDS: EPOETIN ALFA-EPBX 4,000 UNIT/ML VIAL SUBCUT SCH (21:00)
[2024-10-28] VITALS: BP 95/49; PULSE 52; RESP 16; TEMP 36.2; TEMP 36.3; O2SAT 99
[2024-10-28 04:00] VITALS: BP 99/52; PULSE 96; RESP 18; TEMP 36.3
[2024-10-28 20:00] VITALS: BP 90/43; PULSE 95; RESP 18; TEMP 36.4; O2SAT 98
[2024-10-29 16:00] VITALS: BP 100/53; PULSE 84; RESP 16; TEMP 36.4; O2SAT 97
[2024-10-29 20:00] VITALS: BP 95/62; PULSE 95; RESP 16; TEMP 36.5; O2SAT 96
[2024-10-30] VITALS (12 sets, daily range): BP systolic 106–127; BP diastolic 52–80; PULSE 80–106; RESP 14–19; TEMP 36.3–36.7; O2SAT 97–100
[2024-10-31] VITALS: PULSE 100; RESP 18; TEMP 36.7
[2024-10-31 16:00] VITALS: BP 108/56; PULSE 108; RESP 20; TEMP 36.7; O2SAT 95
[2024-10-31 20:00] VITALS: BP 114/75; PULSE 97; RESP 18; TEMP 36.5; O2SAT 83
[2024-11-01] VITALS (10 sets, daily range): BP systolic 100–127; BP diastolic 57–74; PULSE 77–94; RESP 14–18; TEMP 36.2–36.6696; O2SAT 96–99
[2024-11-01 13:19] LABS: HEPATITIS B SURFACE AB 25.9 mIU/mL (<10)
[2024-11-01 13:31] LABS: HEPATITIS B SURFACE ANTIGEN NEGATIVE (Negative)
[2024-11-01 13:51] LABS: HEPATITIS A AB IGM NEGATIVE (Negative)
[2024-11-01 13:52] LABS: HEPATITIS B CORE AB IGM NEGATIVE (Negative)
[2024-11-01 13:53] LABS: HEPATITIS C AB NON REACTIVE (Neg) (Negative)
[2024-11-02] VITALS: BP 104/62; PULSE 96; RESP 18; TEMP 36.5; O2SAT 95
[2024-11-02 04:00] VITALS: BP_SYST 104
[2024-11-02 08:00] VITALS: BP 109/70; PULSE 87; RESP 16; TEMP 36.6; O2SAT 97
[2024-11-02 12:00] VITALS: BP 115/70; PULSE 80; RESP 16; TEMP 36.4; O2SAT 98
[2024-11-02 16:00] VITALS: BP 110/65; PULSE 80; RESP 16; TEMP 36.8; O2SAT 98
[2024-11-02 20:00] VITALS: BP 98/76; PULSE 89; RESP 17; TEMP 36.2; O2SAT 97
[2024-11-03] VITALS (11 sets, daily range): BP systolic 90–127; BP diastolic 50–77; PULSE 79–94; RESP 14–18; TEMP 36.6696–36.8; O2SAT 97–99
[2024-11-03 13:23] LABS: BASOPHILS % 1.1 % (0.0-2.0); DIFFERENTIAL COMMENT 0; EOSINOPHILS % 8.9 % (0.0-5.0); HEMATOCRIT. 30.6 % (36.0-48.0); LYMPHOCYTES % 14.3 % (20.0-50.0); MEAN CORPUSCULAR HEMOGLOBIN 26.1 pg (28.0-32.0); MEAN CORPUSCULAR HGB CONC 32.8 g/dL (31.0-37.0); MEAN CORPUSCULAR VOLUME 79.8 fL (81.0-99.0); MEAN PLATELET VOLUME 8.8 fl (7.4-10.4); MONOCYTES % 9.5 % (2.0-8.0); NEUTROPHILS % 66.2 % (40.0-76.0); PLATELET 206 x1000/uL (130-400); RED BLOOD CELL COUNT 3.84 mill/uL (4.2-5.4); WHITE BLOOD COUNT 5.6 x1000/uL (4.5-11.0)
[2024-11-03 13:36] LABS: POTASSIUM 3.6 mEq/L (3.5-5.1)
[2024-11-03 13:37] LABS: CALCIUM 8.5 mg/dL (8.7-10.4)
[2024-11-03 13:42] LABS: CREATININE 3.3 mg/dL (0.6-1.0)
[2024-11-04 01:12] VITALS: BP 96/59; PULSE 90; RESP 18; TEMP 36.2; O2SAT 98
[2024-11-04 12:00] VITALS: BP 115/72; PULSE 89; RESP 16; TEMP 36.6; O2SAT 97
[2024-11-04 16:00] VITALS: BP 110/71; PULSE 84; RESP 16; TEMP 36.4; O2SAT 97
[2024-11-05] VITALS: BP 112/71; PULSE 88; RESP 18; TEMP 36.2
[2024-11-05 04:00] VITALS: BP 105/64; PULSE 82; RESP 20; TEMP 36.1
[2024-11-05 08:00] VITALS: BP 107/56; PULSE 77; RESP 16; TEMP 36.4; O2SAT 97
[2024-11-05 12:00] VITALS: BP 107/61; PULSE 90; RESP 17; TEMP 36.1; O2SAT 97
[2024-11-05 16:00] VITALS: BP 123/63; PULSE 89; RESP 18; TEMP 36.2; O2SAT 98
[2024-11-05 20:00] VITALS: BP 114/74; PULSE 80; RESP 18; TEMP 36.1
[2024-11-06] VITALS (13 sets, daily range): BP systolic 119–131; BP diastolic 60–85; PULSE 72–95; RESP 14–18; TEMP 36.2–36.6; O2SAT 98–99
[2024-11-07] VITALS: BP 126/70; RESP 16; TEMP 36.4
[2024-11-07 04:00] VITALS: BP 130/70; PULSE 72; RESP 18; TEMP 36.1
[2024-11-07 12:00] VITALS: BP 103/55; PULSE 85; RESP 19; TEMP 37
[2024-11-07 16:00] VITALS: BP 107/54; PULSE 80; RESP 18; TEMP 37; O2SAT 96
[2024-11-07 20:00] VITALS: BP 117/70; PULSE 69; RESP 18; TEMP 36.3; O2SAT 98
[2024-11-08] VITALS (13 sets, daily range): BP systolic 105–130; BP diastolic 59–87; PULSE 64–92; RESP 14–19; TEMP 36.3–36.50292; O2SAT 95–99
[2024-11-08 13:00] LABS: POTASSIUM 3.3 mEq/L (3.5-5.1)
[2024-11-08 13:02] LABS: CALCIUM 8.2 mg/dL (8.7-10.4)
[2024-11-08 13:06] LABS: CREATININE 3.9 mg/dL (0.6-1.0)
[2024-11-08 13:10] LABS: DIFFERENTIAL COMMENT 0; EOSINOPHILS % 8.3 % (0.0-5.0); HEMATOCRIT. 33.4 % (36.0-48.0); HEMOGLOBIN. 10.9 g/dL (12.0-16.0); MEAN CORPUSCULAR HEMOGLOBIN 25.9 pg (28.0-32.0); MEAN CORPUSCULAR HGB CONC 32.8 g/dL (31.0-37.0); MEAN CORPUSCULAR VOLUME 79.1 fL (81.0-99.0); MEAN PLATELET VOLUME 9.1 fl (7.4-10.4); MONOCYTES % 8.9 % (2.0-8.0); NEUTROPHILS % 64.8 % (40.0-76.0); PLATELET 216 x1000/uL (130-400); RED BLOOD CELL COUNT 4.22 mill/uL (4.2-5.4); RED CELL DISTRIBUTION WIDTH 14.3 % (11.6-14.6); WHITE BLOOD COUNT 5.6 x1000/uL (4.5-11.0)
[2024-11-09 20:00] VITALS: BP 99/58; PULSE 87; RESP 16; TEMP 36.8; O2SAT 98
[2024-11-10] VITALS (11 sets, daily range): BP systolic 93–132; BP diastolic 46–81; PULSE 75–94; RESP 16–20; TEMP 35.7–36.6; O2SAT 91–100
[2024-11-11] VITALS (8 sets, daily range): BP systolic 84–137; BP diastolic 41–74; PULSE 65–107; RESP 16–20; TEMP 35.9–36.9; O2SAT 82–100
[2024-11-11] MEDS ORDERED: SODIUM CHLORIDE 0.9% 500 ML IV NR (08:30)
[2024-11-11 10:58] LABS: POTASSIUM 3.1 mEq/L (3.5-5.1)
[2024-11-11 11:00] LABS: CALCIUM 6.7 mg/dL (8.7-10.4)
[2024-11-11 11:10] LABS: CREATININE 5.4 mg/dL (0.6-1.0)
[2024-11-11 11:10] LABS: BASOPHILS % 0.8 % (0.0-2.0); DIFFERENTIAL COMMENT 0; EOSINOPHILS % 8.3 % (0.0-5.0); HEMOGLOBIN. 9.4 g/dL (12.0-16.0); LYMPHOCYTES % 16.9 % (20.0-50.0); MEAN CORPUSCULAR HEMOGLOBIN 24.7 pg (28.0-32.0); MEAN CORPUSCULAR HGB CONC 31.2 g/dL (31.0-37.0); MEAN CORPUSCULAR VOLUME 79.2 fL (81.0-99.0); MEAN PLATELET VOLUME 9.1 fl (7.4-10.4); MONOCYTES % 10.2 % (2.0-8.0); NEUTROPHILS % 63.8 % (40.0-76.0); PLATELET 205 x1000/uL (130-400); RED BLOOD CELL COUNT 3.78 mill/uL (4.2-5.4); RED CELL DISTRIBUTION WIDTH 14.3 % (11.6-14.6); WHITE BLOOD COUNT 5.1 x1000/uL (4.5-11.0)
[2024-11-12] MEDS ORDERED: POTASSIUM CHLORIDE 40 MEQ in DEXT 5% WATER 230 ML IV ONE (11:00)
[2024-11-12 12:00] VITALS: BP 135/81; PULSE 71; RESP 16; TEMP 36.4; O2SAT 97
[2024-11-12] MEDS: DIPHENHYDRAMINE 50MG/ML VIAL IV PRN (13:17)
[2024-11-12] MEDS: KCL 20MEQ/100ML X 2 FOR TOTAL KCL 40MEQ/200ML IV SCH (13:17)
[2024-11-12] MEDS: POTASSIUM CHLORIDE 20MEQ TABLET SR PO SCH (14:55)
[2024-11-12 16:00] VITALS: BP 115/46; PULSE 106; RESP 16; TEMP 36.6; O2SAT 97
[2024-11-12 20:00] VITALS: BP 114/76; PULSE 93; RESP 18; TEMP 36.6; O2SAT 96
[2024-11-12] MEDS: HYDROCODONE/ACETAMINOPHEN 5/325MG TABLET PO PRN (22:52)
[2024-11-12] MEDS ORDERED: NALOXONE HCL 0.4MG/ML VIAL IV PRN (23:00)
[2024-11-13] VITALS (13 sets, daily range): BP systolic 99–132; BP diastolic 61–82; PULSE 92–105; RESP 16–19; TEMP 36.3–37.2; O2SAT 95–100
[2024-11-13 16:38] LABS: BASOPHILS % 0.7 % (0.0-2.0); DIFFERENTIAL COMMENT 0; EOSINOPHILS % 7.1 % (0.0-5.0); HEMATOCRIT. 29.7 % (36.0-48.0); HEMOGLOBIN. 9.3 g/dL (12.0-16.0); LYMPHOCYTES % 19.9 % (20.0-50.0); MEAN CORPUSCULAR HEMOGLOBIN 24.6 pg (28.0-32.0); MEAN CORPUSCULAR HGB CONC 31.3 g/dL (31.0-37.0); MEAN CORPUSCULAR VOLUME 78.5 fL (81.0-99.0); MEAN PLATELET VOLUME 9.1 fl (7.4-10.4); MONOCYTES % 10.5 % (2.0-8.0); NEUTROPHILS % 61.8 % (40.0-76.0); PLATELET 206 x1000/uL (130-400); RED BLOOD CELL COUNT 3.78 mill/uL (4.2-5.4); RED CELL DISTRIBUTION WIDTH 14.4 % (11.6-14.6); WHITE BLOOD COUNT 5.3 x1000/uL (4.5-11.0)
[2024-11-14] VITALS: BP 100/51; PULSE 97; RESP 19; TEMP 36.9; O2SAT 97
[2024-11-14 04:00] VITALS: BP 95/57; PULSE 93; RESP 19; TEMP 36.8; O2SAT 100
[2024-11-14 12:00] VITALS: BP 101/59; PULSE 86; RESP 18; TEMP 36.4; O2SAT 94
[2024-11-14 16:00] VITALS: RESP 18; TEMP 36.3
[2024-11-15] VITALS (11 sets, daily range): BP systolic 105–134; BP diastolic 45–65; PULSE 69–94; RESP 15–17; TEMP 36.3–37.1; O2SAT 95–100
[2024-11-16 04:00] VITALS: BP 92/86; PULSE 82; RESP 19; TEMP 36.3; O2SAT 99
[2024-11-16 08:00] VITALS: BP 98/83; PULSE 79; RESP 18; TEMP 36.6; O2SAT 98
[2024-11-16 12:00] VITALS: BP 100/74; PULSE 81; RESP 20; TEMP 36.5; O2SAT 98
[2024-11-16 20:00] VITALS: BP 119/73; PULSE 93; RESP 15; TEMP 36.9; O2SAT 94
[2024-11-17] VITALS (11 sets, daily range): BP systolic 107–135; BP diastolic 72–89; PULSE 98–116; RESP 15–19; TEMP 36.1–36.8; O2SAT 98–100
[2024-11-17 14:16] LABS: BASOPHILS % 1.1 % (0.0-2.0); DIFFERENTIAL COMMENT 0; EOSINOPHILS % 7.2 % (0.0-5.0); HEMATOCRIT. 36.5 % (36.0-48.0); HEMOGLOBIN. 11.3 g/dL (12.0-16.0); LYMPHOCYTES % 19.9 % (20.0-50.0); MEAN CORPUSCULAR HGB CONC 30.9 g/dL (31.0-37.0); MEAN CORPUSCULAR VOLUME 77.7 fL (81.0-99.0); MEAN PLATELET VOLUME 8.9 fl (7.4-10.4); MONOCYTES % 9.7 % (2.0-8.0); NEUTROPHILS % 62.1 % (40.0-76.0); PLATELET 282 x1000/uL (130-400); RED CELL DISTRIBUTION WIDTH 14.6 % (11.6-14.6); WHITE BLOOD COUNT 6.6 x1000/uL (4.5-11.0)
[2024-11-18 08:00] VITALS: BP 126/65; PULSE 90; RESP 20; TEMP 36.5; O2SAT 99
[2024-11-18 12:00] VITALS: BP 108/70; PULSE 80; RESP 18; TEMP 36.4; O2SAT 98
[2024-11-18 16:00] VITALS: BP 90/44; PULSE 77; RESP 18; TEMP 36.4; O2SAT 95
[2024-11-19 12:00] VITALS: BP 125/54; PULSE 80; RESP 19; TEMP 35.7; O2SAT 99
[2024-11-19 16:00] VITALS: BP 90/47; PULSE 95; RESP 18; TEMP 36.6; O2SAT 99
[2024-11-19 20:00] VITALS: RESP 18; TEMP 36.2
[2024-11-20] VITALS (11 sets, daily range): BP systolic 101–126; BP diastolic 38–75; PULSE 72–98; RESP 14–18; TEMP 35.8–36.50292; O2SAT 95–99
[2024-11-20 14:26] LABS: CHLORIDE 106 mEq/L (98-107); POTASSIUM 3.7 mEq/L (3.5-5.1); SODIUM 144 mEq/L (136-145)
[2024-11-20 14:27] LABS: CARBON DIOXIDE 29 mEq/L (21-32)
[2024-11-20 14:28] LABS: CALCIUM 7.6 mg/dL (8.7-10.4)
[2024-11-20 14:32] LABS: BASOPHILS % 0.7 % (0.0-2.0); CREATININE 3.8 mg/dL (0.6-1.0); DIFFERENTIAL COMMENT 0; EOSINOPHILS % 8.8 % (0.0-5.0); GLUCOSE 101 mg/dL (70-105); HEMATOCRIT. 28.1 % (36.0-48.0); LYMPHOCYTES % 21.7 % (20.0-50.0); MEAN CORPUSCULAR HEMOGLOBIN 25.2 pg (28.0-32.0); MEAN CORPUSCULAR HGB CONC 32.1 g/dL (31.0-37.0); MEAN CORPUSCULAR VOLUME 78.5 fL (81.0-99.0); MEAN PLATELET VOLUME 8.7 fl (7.4-10.4); MONOCYTES % 9.9 % (2.0-8.0); NEUTROPHILS % 58.9 % (40.0-76.0); PLATELET 200 x1000/uL (130-400); RED BLOOD CELL COUNT 3.58 mill/uL (4.2-5.4); RED CELL DISTRIBUTION WIDTH 14.4 % (11.6-14.6); UREA NITROGEN BLOOD 18 mg/dL (9-23)
[2024-11-20 14:34] LABS: ALANINE AMINOTRANSFERASE < 7 IU/L (10-49); ALBUMIN 3.5 g/dL (3.2-4.8); ASPARTATE AMINOTRANSFERASE 12 IU/L (<34)
[2024-11-20 14:35] LABS: BILIRUBIN TOTAL 0.3 mg/dL (0.1-1.0); PROTEIN TOTAL 7.3 g/dL (6.0-8.3)
[2024-11-21 16:00] VITALS: BP 118/74; PULSE 47; RESP 21; TEMP 36.7; O2SAT 72
[2024-11-21 20:00] VITALS: BP 113/71; PULSE 79; RESP 18; TEMP 36.4; O2SAT 100
[2024-11-22] VITALS (14 sets, daily range): BP systolic 111–131; BP diastolic 65–95; PULSE 68–93; RESP 14–18; TEMP 36.2–36.7; O2SAT 88–100
[2024-11-23] VITALS: BP 112/72; PULSE 75; RESP 18; TEMP 36.4; O2SAT 98
[2024-11-23 04:00] VITALS: BP 111/61; PULSE 76; RESP 18; TEMP 36.3
[2024-11-23 06:00] VITALS: BP 111/61; PULSE 76; RESP 18; TEMP 36.3; O2SAT 94
[2024-11-23 08:00] VITALS: BP 113/72; PULSE 99; RESP 18; TEMP 36.7; O2SAT 100
[2024-11-23 12:00] VITALS: BP 106/65; PULSE 102; RESP 20; TEMP 36.8; O2SAT 98
[2024-11-23] MEDS: PANTOPRAZOLE 40MG DR TABLET PO SCH (17:30)
[2024-11-23] MEDS ORDERED: HYDROCODONE/ACETAMINOPHEN 5/325MG TABLET PO PRN (17:44)
[2024-11-23 20:00] VITALS: BP 103/64; PULSE 92; RESP 20; TEMP 36.2; O2SAT 98
[2024-11-23] MEDS: HEPARIN 5000 UNITS/ML VIAL SUBCUT SCH (21:00)
[2024-11-24] VITALS (12 sets, daily range): BP systolic 100–123; BP diastolic 50–74; PULSE 75–95; RESP 16–20; TEMP 36.2–36.7; O2SAT 96–99
[2024-11-24] MEDS: FOLIC ACID/VITAMIN B COMP W-C TABLET PO SCH (09:00)
[2024-11-24 15:17] LABS: POTASSIUM 4.1 mEq/L (3.5-5.1)
[2024-11-24 15:38] LABS: BASOPHILS % 0.9 % (0.0-2.0); DIFFERENTIAL COMMENT 0; EOSINOPHILS % 8.8 % (0.0-5.0); HEMATOCRIT. 24.5 % (36.0-48.0); HEMOGLOBIN. 7.9 g/dL (12.0-16.0); LYMPHOCYTES % 20.4 % (20.0-50.0); MEAN CORPUSCULAR HEMOGLOBIN 25.6 pg (28.0-32.0); MEAN CORPUSCULAR HGB CONC 32.2 g/dL (31.0-37.0); MEAN CORPUSCULAR VOLUME 79.3 fL (81.0-99.0); MONOCYTES % 10.5 % (2.0-8.0); NEUTROPHILS % 59.4 % (40.0-76.0); PLATELET 158 x1000/uL (130-400); RED BLOOD CELL COUNT 3.09 mill/uL (4.2-5.4); RED CELL DISTRIBUTION WIDTH 14.3 % (11.6-14.6); WHITE BLOOD COUNT 4.5 x1000/uL (4.5-11.0)
[2024-11-24 15:41] LABS: CALCIUM 5.8 mg/dL (8.7-10.4); CREATININE 7.4 mg/dL (0.6-1.0)
[2024-11-25 04:00] VITALS: BP 98/42; PULSE 64; RESP 18; TEMP 36.9; O2SAT 98
[2024-11-25 16:00] VITALS: BP 101/58; PULSE 59; PULSE 70; RESP 17; TEMP 36.5; TEMP 36.7; O2SAT 84; O2SAT 96
[2024-11-25 20:00] VITALS: BP 83/45; PULSE 60; RESP 16; TEMP 36.9; O2SAT 97
[2024-11-26] VITALS: BP 82/41; PULSE 78; RESP 16; TEMP 36.4; O2SAT 98
[2024-11-26 04:00] VITALS: BP 94/52; PULSE 86; RESP 17; TEMP 36.9; O2SAT 97
[2024-11-26 16:00] VITALS: BP 90/50; PULSE 90; RESP 19; TEMP 36.7; O2SAT 100
[2024-11-27] VITALS (12 sets, daily range): BP systolic 85–123; BP diastolic 46–84; PULSE 75–104; RESP 16–19; TEMP 35.9–36.6; O2SAT 95–100
[2024-11-27 19:36] LABS: CHLORIDE 102 mEq/L (98-107); POTASSIUM 3.4 mEq/L (3.5-5.1); SODIUM 142 mEq/L (136-145)
[2024-11-27 19:37] LABS: CALCIUM 7.8 mg/dL (8.7-10.4); CARBON DIOXIDE 27 mEq/L (21-32)
[2024-11-27 19:42] LABS: CREATININE 3.9 mg/dL (0.6-1.0); GLUCOSE 97 mg/dL (70-105); UREA NITROGEN BLOOD 21 mg/dL (9-23)
[2024-11-27 19:44] LABS: PHOSPHORUS 1.9 mg/dL (2.5-4.9)
[2024-11-28] VITALS: BP 90/46; PULSE 104; RESP 18; TEMP 36.6; O2SAT 99
[2024-11-28 04:00] VITALS: BP 80/45; PULSE 102; RESP 16; TEMP 36.9; O2SAT 95
[2024-11-28 04:35] VITALS: BP 106/66; PULSE 104; RESP 18; TEMP 36.3; O2SAT 95
[2024-11-28 12:00] VITALS: BP 83/52; PULSE 96; RESP 18; TEMP 36.4; O2SAT 95
[2024-11-28 16:00] VITALS: BP 102/50; PULSE 98; RESP 20; TEMP 36.6; O2SAT 98
[2024-11-28 20:00] VITALS: BP 88/51; PULSE 94; RESP 16; TEMP 36.8; O2SAT 100
[2024-11-29] VITALS (13 sets, daily range): BP systolic 91–155; BP diastolic 50–75; PULSE 72–96; RESP 14–18; TEMP 36.6–37; O2SAT 96–99
[2024-11-29 14:35] LABS: POTASSIUM 3.7 mEq/L (3.5-5.1)
[2024-11-29 14:36] LABS: CALCIUM 7.7 mg/dL (8.7-10.4)
[2024-11-29 14:41] LABS: CREATININE 3.4 mg/dL (0.6-1.0)
[2024-11-29 14:59] LABS: HEPATITIS B SURFACE ANTIGEN NEGATIVE (Negative)
[2024-11-29 15:03] LABS: BASOPHILS % 0.7 % (0.0-2.0); DIFFERENTIAL COMMENT 0; EOSINOPHILS % 8.7 % (0.0-5.0); HEMATOCRIT. 29.3 % (36.0-48.0); HEMOGLOBIN. 9.3 g/dL (12.0-16.0); LYMPHOCYTES % 18.2 % (20.0-50.0); MEAN CORPUSCULAR HEMOGLOBIN 25.4 pg (28.0-32.0); MEAN CORPUSCULAR HGB CONC 31.8 g/dL (31.0-37.0); MEAN CORPUSCULAR VOLUME 79.8 fL (81.0-99.0); MEAN PLATELET VOLUME 8.6 fl (7.4-10.4); MONOCYTES % 9.5 % (2.0-8.0); NEUTROPHILS % 62.9 % (40.0-76.0); PLATELET 180 x1000/uL (130-400); RED BLOOD CELL COUNT 3.67 mill/uL (4.2-5.4); RED CELL DISTRIBUTION WIDTH 14.4 % (11.6-14.6); WHITE BLOOD COUNT 4.4 x1000/uL (4.5-11.0)
[2024-11-29 15:19] LABS: HEPATITIS A AB IGM NEGATIVE (Negative)
[2024-11-29 15:20] LABS: HEPATITIS B CORE AB IGM NEGATIVE (Negative); HEPATITIS C AB NON REACTIVE (Neg) (Negative)
[2024-11-30] VITALS: BP 107/52; PULSE 94; RESP 16; TEMP 36.2; O2SAT 97
[2024-11-30 04:00] VITALS: BP 106/67; PULSE 88; RESP 16; TEMP 36.4; O2SAT 97
[2024-11-30 08:00] VITALS: BP 106/61; PULSE 76; RESP 19; TEMP 36.4; O2SAT 98
[2024-11-30 12:00] VITALS: BP 105/64; PULSE 75; RESP 19; TEMP 36.5; O2SAT 98
[2024-11-30 20:00] VITALS: BP 113/58; PULSE 82; RESP 19; TEMP 36.6; O2SAT 98
[2024-12-01] VITALS (14 sets, daily range): BP systolic 96–122; BP diastolic 50–75; PULSE 75–93; RESP 14–18; TEMP 36.4–36.72516; O2SAT 97–100
[2024-12-02 16:00] VITALS: BP 108/56; PULSE 80; RESP 16; TEMP 36.4; O2SAT 98
[2024-12-02 20:00] VITALS: BP 106/59; PULSE 84; RESP 18; TEMP 36.6; O2SAT 93
[2024-12-03] VITALS: BP 118/77; PULSE 84; RESP 18; TEMP 36.6; O2SAT 94
[2024-12-03 04:00] VITALS: BP 107/68; PULSE 95; RESP 18; TEMP 36.4; O2SAT 98
[2024-12-03 12:00] VITALS: BP 136/70; PULSE 98; RESP 16; TEMP 36.4; O2SAT 97
[2024-12-03 16:00] VITALS: RESP 18
[2024-12-03 20:00] VITALS: BP 107/66; PULSE 89; RESP 18; TEMP 36.3; O2SAT 97
[2024-12-03 21:26] VITALS: BP 107/66; PULSE 89; RESP 18; TEMP 36.3; O2SAT 97
[2024-12-04] VITALS (14 sets, daily range): BP systolic 99–132; BP diastolic 65–85; PULSE 72–100; RESP 14–18; TEMP 36.4–36.7; O2SAT 94–98
[2024-12-05 00:18] VITALS: BP 100/70; PULSE 72; RESP 18; TEMP 36.8
[2024-12-05 12:00] VITALS: BP 102/62; PULSE 84; RESP 18; TEMP 36.1; O2SAT 95
[2024-12-05 16:00] VITALS: BP 96/55; PULSE 96; RESP 17; TEMP 36.6; O2SAT 99
[2024-12-05 20:00] VITALS: BP 132/66; PULSE 95; RESP 18; TEMP 36.4; O2SAT 100
[2024-12-06] VITALS (15 sets, daily range): BP systolic 100–128; BP diastolic 59–80; PULSE 81–96; RESP 14–18; TEMP 36.2–37.1; O2SAT 95–100
[2024-12-07] VITALS: BP 113/68; PULSE 96; RESP 19; TEMP 37.4; O2SAT 98
[2024-12-07 16:00] VITALS: BP 112/73; PULSE 94; RESP 20; TEMP 37; O2SAT 97
[2024-12-07 20:00] VITALS: BP 118/70; PULSE 90; RESP 16; TEMP 36.6; O2SAT 99
[2024-12-08] VITALS (12 sets, daily range): BP systolic 106–138; BP diastolic 54–84; PULSE 74–94; RESP 14–18; TEMP 36.3–36.8; O2SAT 94–100
[2024-12-09] VITALS (8 sets, daily range): BP systolic 111–126; BP diastolic 68–78; PULSE 79–100; RESP 18–20; TEMP 35.6–36.6; O2SAT 93–99
[2024-12-10] VITALS: BP 122/68; PULSE 72; RESP 18; TEMP 35.9; O2SAT 97
[2024-12-10 04:00] VITALS: BP 167/58; PULSE 61; RESP 17; TEMP 36.4; O2SAT 97
[2024-12-10 08:00] VITALS: BP 104/59; PULSE 86; RESP 18; TEMP 36.6; O2SAT 99
[2024-12-10 12:00] VITALS: BP 105/70; PULSE 91; RESP 18; TEMP 36.5; O2SAT 99
[2024-12-10 16:00] VITALS: BP 110/68; PULSE 90; RESP 18; TEMP 36.7; O2SAT 99
[2024-12-10 20:00] VITALS: BP 117/96; PULSE 92; RESP 15; TEMP 36.6; O2SAT 93
[2024-12-11] VITALS (12 sets, daily range): BP systolic 92–132; BP diastolic 46–79; PULSE 70–95; RESP 14–20; TEMP 33.3–36.78072; O2SAT 96–100
[2024-12-11] MEDS: DIPHENHYDRAMINE 50MG/ML VIAL IV NR (12:12)
[2024-12-11] MEDS ORDERED: NALOXONE HCL 0.4MG/ML VIAL IV PRN ×2 (21:00)
[2024-12-11] MEDS: ACETAMINOPHEN 325MG TABLET PO PRN (21:34)
[2024-12-12] VITALS: BP 96/45; PULSE 90; RESP 16; TEMP 36.7; O2SAT 95
[2024-12-12] MEDS: ASPIRIN 81MG TABLET PO NR (03:30)
[2024-12-12] MEDS: MIDODRINE HCL 5MG TABLET PO SCH (08:21)
[2024-12-12 12:00] VITALS: BP 105/52; PULSE 85; RESP 19; TEMP 36.9; O2SAT 100
[2024-12-12 16:00] VITALS: BP 89/50; PULSE 75; RESP 18; TEMP 36.7; O2SAT 100
[2024-12-12 20:00] VITALS: BP 125/76; PULSE 84; RESP 17; TEMP 36.9; O2SAT 99
[2024-12-13] VITALS (13 sets, daily range): BP systolic 87–133; BP diastolic 45–85; PULSE 80–98; RESP 16–18; TEMP 36.5–36.9; O2SAT 88–100
[2024-12-13] MEDS: DIPHENHYDRAMINE 50MG/ML VIAL IV PRN (11:53)
[2024-12-13 13:55] LABS: BASOPHILS % 0.8 % (0.0-2.0); DIFFERENTIAL COMMENT 0; HEMATOCRIT. 30.6 % (36.0-48.0); HEMOGLOBIN. 9.8 g/dL (12.0-16.0); LYMPHOCYTES % 12.2 % (20.0-50.0); MEAN CORPUSCULAR HEMOGLOBIN 24.9 pg (28.0-32.0); MEAN CORPUSCULAR HGB CONC 31.9 g/dL (31.0-37.0); MEAN CORPUSCULAR VOLUME 77.9 fL (81.0-99.0); MEAN PLATELET VOLUME 8.7 fl (7.4-10.4); MONOCYTES % 8.3 % (2.0-8.0); NEUTROPHILS % 71.7 % (40.0-76.0); PLATELET 239 x1000/uL (130-400); RED BLOOD CELL COUNT 3.93 mill/uL (4.2-5.4); RED CELL DISTRIBUTION WIDTH 14.6 % (11.6-14.6); WHITE BLOOD COUNT 7.3 x1000/uL (4.5-11.0)
[2024-12-13 14:01] LABS: POTASSIUM 3.4 mEq/L (3.5-5.1)
[2024-12-13 14:03] LABS: CALCIUM 8.2 mg/dL (8.7-10.4)
[2024-12-13 14:07] LABS: CREATININE 3.8 mg/dL (0.6-1.0)
[2024-12-13] MEDS: POTASSIUM CHLORIDE 20MEQ/PACKET PO NR (14:35)
[2024-12-14 08:45] VITALS: BP 130/68; PULSE 95; RESP 20; TEMP 37.3
[2024-12-14 12:00] VITALS: BP 121/60; PULSE 89; RESP 20; TEMP 36.9; O2SAT 98
[2024-12-14 16:00] VITALS: BP 93/52; PULSE 103; RESP 20; TEMP 38.3; O2SAT 98
[2024-12-14 20:00] VITALS: BP 100/57; PULSE 91; RESP 18; TEMP 36.9; O2SAT 100
[2024-12-15] VITALS (13 sets, daily range): BP systolic 99–124; BP diastolic 32–74; PULSE 77–116; RESP 14–19; TEMP 36.6696–39.4; O2SAT 95–100
[2024-12-15] MEDS: HYDROCODONE/ACETAMINOPHEN 5/325MG TABLET PO PRN (15:00)
[2024-12-15 15:36] LABS: HEMATOCRIT. 26.8 % (36.0-48.0); HEMOGLOBIN. 8.6 g/dL (12.0-16.0); MEAN CORPUSCULAR HGB CONC 32.1 g/dL (31.0-37.0); MEAN CORPUSCULAR VOLUME 77.9 fL (81.0-99.0); MEAN PLATELET VOLUME 8.9 fl (7.4-10.4); PLATELET 152 x1000/uL (130-400); POTASSIUM 3.9 mEq/L (3.5-5.1); RED BLOOD CELL COUNT 3.45 mill/uL (4.2-5.4); RED CELL DISTRIBUTION WIDTH 14.4 % (11.6-14.6); WHITE BLOOD COUNT 7.9 x1000/uL (4.5-11.0)
[2024-12-15 15:38] LABS: CALCIUM 6.7 mg/dL (8.7-10.4)
[2024-12-15 15:39] LABS: DIFFERENTIAL COMMENT 1
[2024-12-15 15:44] LABS: CREATININE 6.9 mg/dL (0.6-1.0)
[2024-12-16] VITALS (9 sets, daily range): BP systolic 80–101; BP diastolic 45–57; PULSE 86–104; RESP 16–18; TEMP 36.3–39.1; O2SAT 86–100
[2024-12-16 00:15] LABS: PLATELET ESTIMATE NORMAL
[2024-12-16 00:16] LABS: MICROCYTOSIS 1+
[2024-12-16 00:17] LABS: ANISOCYTOSIS 1+
[2024-12-16] MEDS ORDERED: CEFUROXIME AXETIL 500MG TABLET PO SCH (08:00)
[2024-12-16] MEDS: CEFUROXIME AXETIL 250MG TABLET PO SCH (09:58)
[2024-12-16] MEDS: LINEZOLID 600MG TABLET PO SCH (20:39)
[2024-12-17] VITALS: BP 124/65; PULSE 71; RESP 18; TEMP 36.2; O2SAT 99
[2024-12-17 04:00] VITALS: BP 102/58; PULSE 66; RESP 18; TEMP 36.2; O2SAT 99
[2024-12-17 08:00] VITALS: BP 91/50; PULSE 61; RESP 20; TEMP 36.7; O2SAT 100
[2024-12-17 12:00] VITALS: BP 98/56; PULSE 110; RESP 19; TEMP 36.9; O2SAT 100
[2024-12-17 16:00] VITALS: BP 95/59; PULSE 54; RESP 18; TEMP 37.2; O2SAT 97
[2024-12-17 20:00] VITALS: BP 127/72; PULSE 65; RESP 16; TEMP 37.2; O2SAT 95
[2024-12-17] MEDS: VANCOMYCIN 750MG/150ML (BAXTER) IV NR (21:42)
[2024-12-18] VITALS (13 sets, daily range): BP systolic 85–122; BP diastolic 40–89; PULSE 79–112; RESP 15–18; TEMP 36.2–36.9; O2SAT 95–100
[2024-12-18] MEDS: VANCOMYCIN 500MG/100ML IV NR (15:00)
[2024-12-18] MEDS: DIPHENHYDRAMINE 25MG CAPSULE PO PRN (21:11)
[2024-12-19 02:55] VITALS: BP 90/45; PULSE 94; RESP 18; TEMP 36.4; O2SAT 99
[2024-12-19 04:00] VITALS: BP 104/56; PULSE 74; PULSE 92; RESP 18; TEMP 36.2
[2024-12-19 08:00] VITALS: RESP 18; TEMP 36.3
[2024-12-19 12:00] VITALS: BP 98/49; PULSE 111; RESP 18; TEMP 36.1; O2SAT 97
[2024-12-19 16:00] VITALS: BP 84/31; PULSE 109; RESP 18; O2SAT 99
[2024-12-19] MEDS: VANCOMYCIN 500MG PREMIX 100 ML IV SCH (18:05)
[2024-12-19 20:00] VITALS: BP 99/54; PULSE 78; RESP 18; TEMP 36.3; O2SAT 97
[2024-12-20] VITALS (7 sets, daily range): BP systolic 88–104; BP diastolic 32–64; PULSE 80–119; RESP 18–19; TEMP 36.2–38.6; O2SAT 96–100
[2024-12-20] MEDS: MIDODRINE HCL 5MG TABLET PO SCH (01:23)
[2024-12-20] MEDS: SODIUM CHLORIDE 0.9% 250 ML IV ONE (01:27)
[2024-12-20] MEDS: LACTOBACILLUS RHAMNOSUS GG CAP PO SCH (19:30)
[2024-12-20] MEDS: VANCOMYCIN 500MG PREMIX 100 ML IV SCH (21:00)
[2024-12-21] VITALS: BP 116/55; PULSE 90; RESP 18; TEMP 37.4; O2SAT 100
[2024-12-21 04:00] VITALS: BP 124/56; PULSE 90; RESP 19; TEMP 37.3; O2SAT 93
[2024-12-21 08:00] VITALS: BP 102/54; PULSE 124; RESP 18; TEMP 38.3; O2SAT 96
[2024-12-21] MEDS: ONDANSETRON HCL 4MG/2ML INJ IV PRN (10:19)
[2024-12-21 12:00] VITALS: BP 106/57; PULSE 120; RESP 16; TEMP 37.2; O2SAT 100
[2024-12-21 16:00] VITALS: BP 98/52; PULSE 100; RESP 18; TEMP 37.2; O2SAT 95
[2024-12-21 20:00] VITALS: BP 110/69; PULSE 129; RESP 18; TEMP 36.1; O2SAT 97
[2024-12-22] VITALS (12 sets, daily range): BP systolic 101–186; BP diastolic 54–162; PULSE 95–137; RESP 19–28; TEMP 36.00288–37.1; O2SAT 97–100
[2024-12-22] MEDS: LACTOBACILLUS RHAMNOSUS GG CAP PO NR (01:09)
[2024-12-22] MEDS ORDERED: SODIUM CHLORIDE 0.9% 250 ML IV NR (07:00)
[2024-12-22] MEDS ORDERED: LIDOCAINE HCL 1% 10 MG/ML 10ML VIAL ONE ×3 (09:51→16:20)
[2024-12-22] MEDS ORDERED: THROMBIN (BOVINE) 5000 UNITS/VIAL TOP ONE (09:51)
[2024-12-22] MEDS ORDERED: BUPIVACAINE HCL/PF 0.5% (5MG/ML) 10ML ONE ×2 (09:51→12:22)
[2024-12-22] MEDS ORDERED: HEPARIN SODIUM 1,000 UNIT/1ML VIAL IV ONE (09:52)
[2024-12-22] MEDS ORDERED: POLYMYXIN B SULFATE 500000 UNITS/VIAL ONE (09:52)
[2024-12-22 10:07] LABS: MEAN CORPUSCULAR HEMOGLOBIN 24.2 pg (28.0-32.0); MEAN CORPUSCULAR HGB CONC 32.2 g/dL (31.0-37.0); MEAN CORPUSCULAR VOLUME 75.1 fL (81.0-99.0); MEAN PLATELET VOLUME 8.5 fl (7.4-10.4); PLATELET 149 x1000/uL (130-400); RED BLOOD CELL COUNT 2.53 mill/uL (4.2-5.4); RED CELL DISTRIBUTION WIDTH 15.1 % (11.6-14.6); WHITE BLOOD COUNT 13.9 x1000/uL (4.5-11.0)
[2024-12-22 10:17] LABS: CALCIUM 6.2 mg/dL (8.7-10.4)
[2024-12-22 10:22] LABS: DIFFERENTIAL COMMENT 1
[2024-12-22 10:25] LABS: HEMOGLOBIN. 6.1 g/dL (12.0-16.0)
[2024-12-22 10:27] LABS: HCG SCREEN NEGATIVE
[2024-12-22 10:37] LABS: CREATININE 10.9 mg/dL (0.6-1.0); POTASSIUM 2.6 mEq/L (3.5-5.1)
[2024-12-22 10:44] LABS: D-DIMER 7.55 mg/L FEU (<0.50); INR 1.1; PROTHROMBIN TIME 11.4 sec (9.6-11.0)
[2024-12-22] MEDS: KCL 20MEQ/100ML PREMIX 100 ML IV SCH (11:00)
[2024-12-22] MEDS ORDERED: POTASSIUM CHLORIDE 40 MEQ in DEXT 5% WATER 230 ML IV ONE (11:00)
[2024-12-22 11:27] LABS: PLATELET ESTIMATE NORMAL
[2024-12-22 11:28] LABS: HYPOCHROMASIA 3+; MICROCYTOSIS 2+
[2024-12-22 11:30] LABS: ANISOCYTOSIS 1+
[2024-12-22] MEDS ORDERED: PROPOFOL 200MG/20ML VIAL IV ONE (13:06)
[2024-12-22] MEDS ORDERED: FENTANYL CITRATE/PF 50MCG/ML 2ML VIAL ONE ×3 (13:07→15:29)
[2024-12-22] MEDS ORDERED: MIDAZOLAM HCL 2 MG/2 ML VIAL ONE ×2 (13:12→14:01)
[2024-12-22] MEDS ORDERED: PHENYLEPHRINE HCL 10MG/ML 1ML IV ONE (13:34)
[2024-12-22] MEDS ORDERED: DIPHENHYDRAMINE 50MG/ML VIAL ONE ×2 (13:44→16:19)
[2024-12-22] MEDS ORDERED: MEPERIDINE HCL/PF 25MG/ML CPJ IV PRN (14:45)
[2024-12-22] MEDS ORDERED: HYDROMORPHONE HCL/PF 1MG/ML INJ IV PRN (14:45)
[2024-12-22] MEDS ORDERED: LABETALOL 5MG/ML 4ML INJ IV PRN (14:45)
[2024-12-22] MEDS ORDERED: ONDANSETRON HCL 4MG/2ML INJ IV PRN (14:45)
[2024-12-22] MEDS ORDERED: DESMOPRESSIN ACETATE 4MCG/ML AMP ONE (15:01)
[2024-12-22] MEDS ORDERED: VANCOMYCIN HCL 1GM VIAL ONE (15:03)
[2024-12-22] MEDS ORDERED: HEPARIN 5000 UNITS/ML VIAL ONE (15:05)
[2024-12-22 18:32] LABS: HEMATOCRIT. 25.3 % (36.0-48.0); HEMOGLOBIN. 8.5 g/dL (12.0-16.0); MEAN CORPUSCULAR HEMOGLOBIN 26.5 pg (28.0-32.0); MEAN CORPUSCULAR HGB CONC 33.7 g/dL (31.0-37.0); MEAN CORPUSCULAR VOLUME 78.6 fL (81.0-99.0); MEAN PLATELET VOLUME 8.6 fl (7.4-10.4); PLATELET 132 x1000/uL (130-400); RED BLOOD CELL COUNT 3.21 mill/uL (4.2-5.4); RED CELL DISTRIBUTION WIDTH 17.1 % (11.6-14.6); WHITE BLOOD COUNT 15.1 x1000/uL (4.5-11.0)
[2024-12-22 18:48] LABS: CALCIUM 6.3 mg/dL (8.7-10.4)
[2024-12-22 18:54] LABS: DIFFERENTIAL COMMENT 1
[2024-12-22 18:58] LABS: POTASSIUM 2.7 mEq/L (3.5-5.1)
[2024-12-22 18:59] LABS: CREATININE 10.4 mg/dL (0.6-1.0)
[2024-12-23] VITALS (8 sets, daily range): BP systolic 73–124; BP diastolic 35–75; PULSE 124–134; RESP 20–33; TEMP 36.114–37.9; O2SAT 96–100
[2024-12-23] MEDS: VANCOMYCIN 750MG PREMIX 150 ML IV NR (01:15)
[2024-12-23] MEDS: KCL 20MEQ/100ML PREMIX 100 ML IV SCH (01:16)
[2024-12-23 03:41] LABS: ANISOCYTOSIS 2+; HYPOCHROMASIA 1+; PLATELET ESTIMATE NORMAL
[2024-12-23 03:42] LABS: MICROCYTOSIS 1+
[2024-12-23 09:28] LABS: POTASSIUM 2.9 mEq/L (3.5-5.1)
[2024-12-23 09:30] LABS: CALCIUM 7.4 mg/dL (8.7-10.4)
[2024-12-23 09:43] LABS: HEMATOCRIT. 28.3 % (36.0-48.0); HEMOGLOBIN. 9.4 g/dL (12.0-16.0); MEAN CORPUSCULAR HEMOGLOBIN 26.1 pg (28.0-32.0); MEAN CORPUSCULAR HGB CONC 33.2 g/dL (31.0-37.0); MEAN CORPUSCULAR VOLUME 78.6 fL (81.0-99.0); MEAN PLATELET VOLUME 8.4 fl (7.4-10.4); PLATELET 118 x1000/uL (130-400); RED CELL DISTRIBUTION WIDTH 17.2 % (11.6-14.6); WHITE BLOOD COUNT 13.4 x1000/uL (4.5-11.0)
[2024-12-23 09:48] LABS: DIFFERENTIAL COMMENT 1
[2024-12-23] MEDS: ZINC OXIDE 20% OINT 30GM TOP SCH (13:19)
[2024-12-23 14:49] LABS: PLATELET ESTIMATE DECREASED
[2024-12-23 14:50] LABS: HYPOCHROMASIA 1+; TARGET CELLS 1+
[2024-12-23 14:51] LABS: ANISOCYTOSIS 2+; MICROCYTOSIS 1+
[2024-12-23] MEDS: POTASSIUM CHLORIDE 20MEQ TABLET SR PO NR ×2 (16:45→23:35)
[2024-12-23] MEDS: SODIUM CHLORIDE 0.9% 250 ML IV ONE (18:41)
[2024-12-23 21:43] LABS: HEMATOCRIT 28.4 % (36.0-48.0); HEMOGLOBIN 9.1 g/dL (12.0-16.0)
[2024-12-24] VITALS (13 sets, daily range): BP systolic 91–146; BP diastolic 31–97; PULSE 114–132; RESP 18–42; TEMP 36.114–38.3; O2SAT 96–99
[2024-12-24] MEDS: VANCOMYCIN 500MG PREMIX 100 ML IV SCH (16:46)
[2024-12-24] MEDS: DIPHENHYDRAMINE 50MG/ML VIAL IV NR (21:02)
[2024-12-24 22:02] LABS: HEMATOCRIT. 26.7 % (36.0-48.0); HEMOGLOBIN. 8.7 g/dL (12.0-16.0); MEAN CORPUSCULAR HEMOGLOBIN 26.9 pg (28.0-32.0); MEAN CORPUSCULAR HGB CONC 32.6 g/dL (31.0-37.0); MEAN CORPUSCULAR VOLUME 82.3 fL (81.0-99.0); MEAN PLATELET VOLUME 9.4 fl (7.4-10.4); PLATELET 148 x1000/uL (130-400); RED BLOOD CELL COUNT 3.24 mill/uL (4.2-5.4); RED CELL DISTRIBUTION WIDTH 18.2 % (11.6-14.6)
[2024-12-24 22:04] LABS: DIFFERENTIAL COMMENT 1
[2024-12-24 22:17] LABS: POTASSIUM 3.5 mEq/L (3.5-5.1)
[2024-12-24 22:18] LABS: CALCIUM 7.4 mg/dL (8.7-10.4)
[2024-12-24 22:39] LABS: ANISOCYTOSIS 1+; PLATELET ESTIMATE NORMAL
[2024-12-24 22:40] LABS: CREATININE 6.5 mg/dL (0.6-1.0)
[2024-12-25] VITALS (8 sets, daily range): BP systolic 86–122; BP diastolic 58–101; PULSE 112–126; RESP 20–34; TEMP 36.1–37.4; O2SAT 96–99
[2024-12-25 07:12] LABS: POTASSIUM 3.6 mEq/L (3.5-5.1)
[2024-12-25 07:13] LABS: HEMATOCRIT 27.2 % (36.0-48.0); MEAN CORPUSCULAR HEMOGLOBIN 26.9 pg (28.0-32.0); MEAN CORPUSCULAR HGB CONC 32.9 g/dL (31.0-37.0); MEAN CORPUSCULAR VOLUME 81.8 fL (81.0-99.0); PLATELET 130 x1000/uL (130-400); RED BLOOD CELL COUNT 3.32 mill/uL (4.2-5.4); RED CELL DISTRIBUTION WIDTH 18.4 % (11.6-14.6)
[2024-12-25 07:14] LABS: CALCIUM 8.3 mg/dL (8.7-10.4)
[2024-12-25 08:00] LABS: CREATININE 3.2 mg/dL (0.6-1.0)
[2024-12-25] MEDS: CHLORHEXIDINE GLUCONATE 4% EXTERNAL USE TOP NR (14:00)
[2024-12-25] MEDS: HYDROMORPHONE HCL/PF 1MG/ML INJ IV NR (16:49)
[2024-12-26] VITALS: BP 102/81; PULSE 116; RESP 22; TEMP 37.2; O2SAT 96
[2024-12-26] MEDS: HYDROCODONE/ACETAMINOPHEN 5/325MG TABLET PO PRN (01:27)
[2024-12-26 04:00] VITALS: BP 118/102; PULSE 115; RESP 30; TEMP 37; O2SAT 96
[2024-12-26] MEDS ORDERED: TETRACAINE/BENZOCAINE/BUTAMBEN 20 GM SPRAY MM ONE (07:46)
[2024-12-26] MEDS ORDERED: LIDOCAINE 2% 6ML GLYDO MM ONE (07:46)
[2024-12-26 08:00] VITALS: BP 104/89; PULSE 115; RESP 27; TEMP 36.4; O2SAT 96
[2024-12-26] MEDS: SODIUM HYPOCHLORITE (0.25%) 480ML SOLUTION (HALF STRENGTH) TOP SCH (09:00)
[2024-12-26] MEDS ORDERED: FENTANYL CITRATE/PF 50MCG/ML 2ML VIAL ONE (09:14)
[2024-12-26] MEDS ORDERED: MIDAZOLAM HCL 5 MG/5 ML VIAL ONE (09:15)
[2024-12-26 12:00] VITALS: BP 119/71; PULSE 117; RESP 36; TEMP 36.3; O2SAT 97
[2024-12-26] MEDS ORDERED: NALOXONE HCL 0.4MG/ML VIAL IV PRN (14:00)
[2024-12-26 16:00] VITALS: BP 122/86; PULSE 118; RESP 34; TEMP 36.3; O2SAT 97
[2024-12-26 20:00] VITALS: BP 117/62; PULSE 116; RESP 22; TEMP 37.3; O2SAT 98
[2024-12-27] VITALS (14 sets, daily range): BP systolic 102–145; BP diastolic 42–105; PULSE 74–117; RESP 14–38; TEMP 36.1–37.3; O2SAT 97–100
[2024-12-27] MEDS ORDERED: CEFAZOLIN 1000MG PREMIX 50 ML IV SCH (10:30)
[2024-12-27] MEDS: CEFAZOLIN 2GM/100ML 100 ML IV SCH (12:00)
[2024-12-27] MEDS: CEFAZOLIN 1000MG PREMIX 50 ML IV SCH (15:00)
[2024-12-27] MEDS: DIPHENHYDRAMINE 50MG/ML VIAL IV NR (17:18)
[2024-12-28] VITALS: BP 127/75; PULSE 114; RESP 18; TEMP 37.3; O2SAT 100
[2024-12-28 04:00] VITALS: BP 113/81; PULSE 119; RESP 18; TEMP 36.8; O2SAT 100
[2024-12-28] MEDS: HYDROMORPHONE HCL/PF 2MG/ML INJ IV PRN (06:13)
[2024-12-28 08:00] VITALS: BP 104/72; PULSE 110; RESP 17; TEMP 36.8; O2SAT 96
[2024-12-28 12:00] VITALS: BP 115/77; PULSE 121; RESP 18; TEMP 37.3; O2SAT 95
[2024-12-28 16:00] VITALS: BP 115/75; PULSE 91; RESP 17; TEMP 37.6; O2SAT 95
[2024-12-28 20:00] VITALS: BP 116/77; PULSE 117; RESP 19; TEMP 37.1; O2SAT 97
[2024-12-29] VITALS (15 sets, daily range): BP systolic 90–128; BP diastolic 40–73; PULSE 66–129; RESP 14–19; TEMP 35.9–36.9; O2SAT 95–98
[2024-12-29] MEDS: DAPTOMYCIN 350 MG in SODIUM CHLORIDE 0.9% 50 ML IV SCH (13:00)
[2024-12-29 18:05] LABS: HEMATOCRIT 26.5 % (36.0-48.0); HEMOGLOBIN 8.4 g/dL (12.0-16.0); MEAN CORPUSCULAR HEMOGLOBIN 26.8 pg (28.0-32.0); MEAN CORPUSCULAR HGB CONC 31.8 g/dL (31.0-37.0); MEAN CORPUSCULAR VOLUME 84.4 fL (81.0-99.0); PLATELET 187 x1000/uL (130-400); RED BLOOD CELL COUNT 3.14 mill/uL (4.2-5.4); RED CELL DISTRIBUTION WIDTH 20.2 % (11.6-14.6); WHITE BLOOD COUNT 10.3 x1000/uL (4.5-11.0)
[2024-12-29 18:14] LABS: CHLORIDE 107 mEq/L (98-107); POTASSIUM 3.5 mEq/L (3.5-5.1); SODIUM 143 mEq/L (136-145)
[2024-12-29 18:15] LABS: CALCIUM 8.6 mg/dL (8.7-10.4); CARBON DIOXIDE 23 mEq/L (21-32)
[2024-12-29 18:19] LABS: IRON 88 ug/dL (50-170)
[2024-12-29 18:20] LABS: CREATININE 3.3 mg/dL (0.6-1.0); GLUCOSE 94 mg/dL (70-105); UREA NITROGEN BLOOD 21 mg/dL (9-23)
[2024-12-29 18:22] LABS: CREATINE KINASE 32 IU/L (34-145); TOTAL IRON BINDING CAPACITY 142 ug/dl (250-425)
[2024-12-30] VITALS: BP 118/80; PULSE 100; RESP 18; TEMP 36.6; O2SAT 98
[2024-12-30 04:00] VITALS: BP 118/68; PULSE 111; RESP 19; TEMP 37.1; O2SAT 98
[2024-12-30 08:00] VITALS: BP 124/78; PULSE 105; RESP 18; TEMP 36.1; O2SAT 100
[2024-12-30 12:00] VITALS: BP_SYST 112; BP_SYST 127; BP_DIAS 63; BP_DIAS 68; PULSE 105; PULSE 78; RESP 18; RESP 19; TEMP 36.3; O2SAT 98; O2SAT 99
[2024-12-30 16:00] VITALS: BP 119/81; PULSE 105; RESP 18; TEMP 36.3; O2SAT 100
[2024-12-30 20:00] VITALS: BP 126/78; PULSE 106; RESP 19; TEMP 36.9; O2SAT 100
[2024-12-31] VITALS: BP 115/70; PULSE 107; RESP 19; TEMP 37.1; O2SAT 100
[2024-12-31 04:00] VITALS: BP 110/87; PULSE 103; RESP 19; TEMP 36.6; O2SAT 97
[2024-12-31 08:00] VITALS: BP 117/78; PULSE 105; RESP 19; TEMP 36.3; O2SAT 97
[2024-12-31 12:00] VITALS: BP 131/87; PULSE 107; RESP 18; TEMP 36.1; O2SAT 97
[2024-12-31 16:00] VITALS: BP 129/81; PULSE 114; RESP 19; TEMP 36.3; O2SAT 98
[2024-12-31 20:00] VITALS: BP 106/73; PULSE 114; RESP 19; TEMP 37.9; O2SAT 99
[2025-01-01] VITALS (14 sets, daily range): BP systolic 114–150; BP diastolic 66–98; PULSE 64–118; RESP 17–24; TEMP 35.7–36.9; O2SAT 97–100
[2025-01-01 14:18] LABS: HEPATITIS B SURFACE ANTIGEN NEGATIVE (Negative)
[2025-01-01 14:39] LABS: HEPATITIS A AB IGM NEGATIVE (Negative)
[2025-01-01 14:40] LABS: HEPATITIS B CORE AB IGM NEGATIVE (Negative); HEPATITIS C AB NON REACTIVE (Neg) (Negative)
[2025-01-01] MEDS: LINEZOLID 600MG TABLET PO SCH (20:35)
[2025-01-02] VITALS: BP 127/72; PULSE 61; RESP 19; TEMP 36.6; O2SAT 99
[2025-01-02 04:00] VITALS: BP 131/68; PULSE 76; RESP 18; TEMP 36.7; O2SAT 98
[2025-01-02 08:00] VITALS: BP 91/62; PULSE 129; RESP 19; TEMP 36.6; O2SAT 93
[2025-01-02 12:00] VITALS: BP 105/57; PULSE 120; RESP 18; TEMP 36.6; O2SAT 93
[2025-01-02] MEDS: HYDROMORPHONE HCL/PF 1MG/ML INJ IV NR (13:26)
[2025-01-02 16:00] VITALS: BP 100/55; PULSE 123; RESP 18; TEMP 36.6; O2SAT 94
[2025-01-02 20:00] VITALS: BP 108/66; PULSE 106; RESP 18; TEMP 36.2; O2SAT 100
[2025-01-03 04:00] VITALS: BP 118/69; PULSE 81; RESP 20; TEMP 36.5; O2SAT 98
[2025-01-03 16:00] VITALS: BP 112/81
[2025-01-03 20:00] VITALS: BP_SYST 106; BP_SYST 125; BP_DIAS 63; BP_DIAS 71; PULSE 106; PULSE 107; RESP 18; TEMP 36.3; TEMP 36.8; O2SAT 100; O2SAT 95
[2025-01-04] VITALS (10 sets, daily range): BP systolic 110–133; BP diastolic 72–96; PULSE 101–121; RESP 16–20; TEMP 36.16956–36.7; O2SAT 98–100
[2025-01-04] MEDS: HYDROCODONE/ACETAMINOPHEN 5/325MG TABLET PO NR (08:30)
[2025-01-05 08:00] VITALS: BP 126/90; PULSE 122; RESP 18; TEMP 36.7; O2SAT 97
[2025-01-05 16:00] VITALS: BP 132/93; PULSE 119; RESP 18; TEMP 36.6; O2SAT 100
[2025-01-06] VITALS (12 sets, daily range): BP systolic 112–130; BP diastolic 59–90; PULSE 68–114; RESP 17–20; TEMP 35.7–36.6696; O2SAT 98–100
[2025-01-07] VITALS: BP 121/75; PULSE 97; RESP 18; TEMP 36.5; O2SAT 100
[2025-01-07 04:00] VITALS: BP 124/70; PULSE 112; RESP 18; TEMP 36.2; O2SAT 100
[2025-01-07 08:00] VITALS: BP 124/79; PULSE 114; RESP 19; TEMP 36.7; O2SAT 99
[2025-01-07 20:00] VITALS: BP 138/80; PULSE 121; RESP 20; TEMP 36.7; O2SAT 100
[2025-01-08] VITALS: BP 141/92; PULSE 50; RESP 20; TEMP 36.4; O2SAT 95
[2025-01-08 04:00] VITALS: BP 137/94; PULSE 127; RESP 20; TEMP 36.5; O2SAT 99
[2025-01-08 08:00] VITALS: BP 141/100; PULSE 97; RESP 18; TEMP 36.8; O2SAT 99
[2025-01-08 12:00] VITALS: BP 123/89; PULSE 112; RESP 18; TEMP 36.8; O2SAT 99
[2025-01-08 20:00] VITALS: BP 129/87; PULSE 118; RESP 18; TEMP 36.9; O2SAT 100
[2025-01-08] MEDS: HEPARIN 5000 UNITS/ML VIAL SUBCUT SCH (21:00)
[2025-01-09] VITALS (11 sets, daily range): BP systolic 115–140; BP diastolic 74–95; PULSE 86–122; RESP 17–20; TEMP 36.1–36.6; O2SAT 97–100
[2025-01-09] MEDS ORDERED: ACETAMINOPHEN 325MG TABLET PO PRN (00:30)
[2025-01-09 17:07] LABS: POTASSIUM 3.6 mEq/L (3.5-5.1)
[2025-01-09 17:08] LABS: CALCIUM 7.3 mg/dL (8.7-10.4)
[2025-01-09 17:11] LABS: MEAN CORPUSCULAR HGB CONC 31.6 g/dL (31.0-37.0); MEAN CORPUSCULAR VOLUME 82.2 fL (81.0-99.0); MEAN PLATELET VOLUME 9.3 fl (7.4-10.4); PLATELET 203 x1000/uL (130-400); RED BLOOD CELL COUNT 2.69 mill/uL (4.2-5.4); RED CELL DISTRIBUTION WIDTH 19.6 % (11.6-14.6); WHITE BLOOD COUNT 11.4 x1000/uL (4.5-11.0)
[2025-01-09 17:12] LABS: DIFFERENTIAL COMMENT 1
[2025-01-09 17:16] LABS: HEMATOCRIT. 22.1 % (36.0-48.0)
[2025-01-09 18:01] LABS: HYPOCHROMASIA 2+; PLATELET ESTIMATE NORMAL
[2025-01-09 18:02] LABS: ANISOCYTOSIS 2+
[2025-01-09] MEDS: HYDROCODONE/ACETAMINOPHEN 5/325MG TABLET PO PRN (21:24)
[2025-01-10] VITALS: BP 117/83; PULSE 120; RESP 20; TEMP 36.5; O2SAT 99
[2025-01-10 04:00] VITALS: BP 124/81; PULSE 124; RESP 20; TEMP 36.5; O2SAT 99
[2025-01-10 08:00] VITALS: BP 133/93; PULSE 126; RESP 18; TEMP 36.7; O2SAT 100
[2025-01-10 16:00] VITALS: BP 134/95; PULSE 110; RESP 18; TEMP 36.2; O2SAT 97
[2025-01-10 20:00] VITALS: BP 137/85; PULSE 71; RESP 20; TEMP 36.7; O2SAT 95
[2025-01-11] VITALS (11 sets, daily range): BP systolic 116–144; BP diastolic 76–91; PULSE 118–128; RESP 18–20; TEMP 36.114–37.1; O2SAT 94–100
[2025-01-11] MEDS: DIPHENHYDRAMINE 50MG/ML VIAL IM PRN (06:03)
[2025-01-11] MEDS ORDERED: NALOXONE HCL 0.4MG/ML VIAL IV PRN (17:45)
[2025-01-11] MEDS: EPOETIN ALFA 4000UNITS/ML VIAL SUBCUT SCH (21:00)
[2025-01-12] VITALS (7 sets, daily range): BP systolic 115–124; BP diastolic 50–83; PULSE 102–127; RESP 18–20; TEMP 36.5–37.5; O2SAT 95–100
[2025-01-13] VITALS (10 sets, daily range): BP systolic 116–137; BP diastolic 78–94; PULSE 41–135; RESP 18–20; TEMP 36.5–38.2; O2SAT 95–100
[2025-01-13 11:28] LABS: HEMATOCRIT. 21.5 % (36.0-48.0); MEAN CORPUSCULAR HEMOGLOBIN 25.2 pg (28.0-32.0); MEAN CORPUSCULAR HGB CONC 30.6 g/dL (31.0-37.0); MEAN CORPUSCULAR VOLUME 82.3 fL (81.0-99.0); MEAN PLATELET VOLUME 9.9 fl (7.4-10.4); PLATELET 226 x1000/uL (130-400); RED BLOOD CELL COUNT 2.62 mill/uL (4.2-5.4); RED CELL DISTRIBUTION WIDTH 19.6 % (11.6-14.6); WHITE BLOOD COUNT 19.4 x1000/uL (4.5-11.0)
[2025-01-13 11:36] LABS: DIFFERENTIAL COMMENT 1
[2025-01-13 11:38] LABS: HEMOGLOBIN. 6.6 g/dL (12.0-16.0)
[2025-01-13 11:39] LABS: INR 1.1
[2025-01-13 11:51] LABS: POTASSIUM 3.4 mEq/L (3.5-5.1)
[2025-01-13 11:52] LABS: CALCIUM 7.8 mg/dL (8.7-10.4)
[2025-01-13 12:08] LABS: ANISOCYTOSIS 2+; PLATELET ESTIMATE NORMAL
[2025-01-13 12:09] LABS: HYPOCHROMASIA 2+; TARGET CELLS 1+
[2025-01-13 12:41] LABS: CREATININE 3.9 mg/dL (0.6-1.0)
[2025-01-14] VITALS: BP 114/80; PULSE 82; RESP 18; TEMP 35.9; O2SAT 97
[2025-01-14 04:00] VITALS: BP 118/82; PULSE 63; RESP 18; TEMP 36.5; O2SAT 95
[2025-01-14 08:00] VITALS: BP 121/85; PULSE 129; RESP 22; TEMP 36.7; O2SAT 100
[2025-01-14 12:00] VITALS: BP 120/85; PULSE 129; RESP 22; TEMP 37.2; O2SAT 100
[2025-01-14] MEDS: METHOCARBAMOL 500MG TABLET PO SCH (14:00)
[2025-01-14 20:00] VITALS: BP 112/82; PULSE 127; RESP 17; TEMP 37.2; O2SAT 97
[2025-01-15] VITALS (11 sets, daily range): BP systolic 102–142; BP diastolic 71–88; PULSE 100–133; RESP 16–20; TEMP 36.5–37.2; O2SAT 98–100
[2025-01-15 11:51] LABS: MEAN CORPUSCULAR HEMOGLOBIN 25.5 pg (28.0-32.0); MEAN CORPUSCULAR HGB CONC 30.8 g/dL (31.0-37.0); MEAN CORPUSCULAR VOLUME 82.7 fL (81.0-99.0); MEAN PLATELET VOLUME 9.5 fl (7.4-10.4); PLATELET 198 x1000/uL (130-400); RED BLOOD CELL COUNT 1.81 mill/uL (4.2-5.4); RED CELL DISTRIBUTION WIDTH 19.7 % (11.6-14.6); WHITE BLOOD COUNT 11.2 x1000/uL (4.5-11.0)
[2025-01-15 11:54] LABS: POTASSIUM 2.9 mEq/L (3.5-5.1)
[2025-01-15 11:55] LABS: CALCIUM 6.7 mg/dL (8.7-10.4)
[2025-01-15 12:12] LABS: DIFFERENTIAL COMMENT 1; HEMATOCRIT. 14.9 % (36.0-48.0); HEMOGLOBIN. 4.6 g/dL (12.0-16.0)
[2025-01-15 12:53] LABS: ANISOCYTOSIS 2+; HYPOCHROMASIA 3+; PLATELET ESTIMATE NORMAL
[2025-01-15 12:54] LABS: TARGET CELLS 1+
[2025-01-15] MEDS ORDERED: POTASSIUM CHLORIDE 40 MEQ in DEXT 5% WATER 230 ML IV ONE (13:15)
[2025-01-15] MEDS: POTASSIUM CHLORIDE 20MEQ TABLET SR PO NR (13:15)
[2025-01-15 13:23] LABS: CREATININE 5.9 mg/dL (0.6-1.0)
[2025-01-15] MEDS ORDERED: LIDOCAINE HCL 1% 10 MG/ML 10ML VIAL ONE (13:23)
[2025-01-15] MEDS: KCL 20MEQ/100ML X 2 FOR TOTAL KCL 40MEQ/200ML IV SCH (15:00)
[2025-01-16] VITALS: BP 111/72; PULSE 132; RESP 18; TEMP 36.8; O2SAT 99
[2025-01-16 04:00] VITALS: BP 109/72; PULSE 122; RESP 20; TEMP 36.6; O2SAT 100
[2025-01-16] MEDS ORDERED: LIDOCAINE HCL 1% 10 MG/ML 10ML VIAL ONE (07:50)
[2025-01-16 08:00] VITALS: BP 115/81; PULSE 75; RESP 18; TEMP 36.6; O2SAT 99
[2025-01-16 12:00] VITALS: BP 114/80; PULSE 131; RESP 18; TEMP 36.6; O2SAT 98
[2025-01-16] MEDS: ALTEPLASE 2MG/VIAL ITC NR (12:25)
[2025-01-16 16:00] VITALS: BP 114/79; PULSE 83; RESP 18; TEMP 36.5; O2SAT 99
[2025-01-17] VITALS (8 sets, daily range): BP systolic 109–126; BP diastolic 70–92; PULSE 14–142; RESP 16–20; TEMP 36.1–38.8; O2SAT 95–100
[2025-01-17] MEDS: ALTEPLASE 2MG/VIAL ITC SCH (08:54)
[2025-01-17] MEDS ORDERED: NALOXONE HCL 0.4MG/ML VIAL IV PRN (20:00)
[2025-01-17] MEDS: HYDROCODONE/ACETAMINOPHEN 5/325MG TABLET PO PRN (20:06)
[2025-01-17 22:02] LABS: CALCIUM 6.9 mg/dL (8.7-10.4)
[2025-01-17 22:06] LABS: MEAN CORPUSCULAR HEMOGLOBIN 25.4 pg (28.0-32.0); MEAN CORPUSCULAR HGB CONC 31.2 g/dL (31.0-37.0); MEAN CORPUSCULAR VOLUME 81.3 fL (81.0-99.0); PLATELET 217 x1000/uL (130-400); RED CELL DISTRIBUTION WIDTH 19.4 % (11.6-14.6); WHITE BLOOD COUNT 13.4 x1000/uL (4.5-11.0)
[2025-01-17 22:14] LABS: CREATININE 6.4 mg/dL (0.6-1.0)
[2025-01-17 22:31] LABS: DIFFERENTIAL COMMENT 1; HEMATOCRIT. 19.5 % (36.0-48.0); HEMOGLOBIN. 6.1 g/dL (12.0-16.0)
[2025-01-17 22:33] LABS: HYPOCHROMASIA 1+; MICROCYTOSIS 1+; PLATELET ESTIMATE NORMAL
[2025-01-18] VITALS (21 sets, daily range): BP systolic 108–147; BP diastolic 68–114; PULSE 120–136; RESP 11–37; TEMP 36.8–37.7; O2SAT 84–100
[2025-01-18] MEDS: ACETAMINOPHEN 325MG TABLET PO PRN (09:28)
[2025-01-18 17:17] LABS: HEMOGLOBIN. 10.5 g/dL (12.0-16.0); MEAN CORPUSCULAR HEMOGLOBIN 26.8 pg (28.0-32.0); MEAN CORPUSCULAR HGB CONC 31.8 g/dL (31.0-37.0); MEAN CORPUSCULAR VOLUME 84.1 fL (81.0-99.0); MEAN PLATELET VOLUME 9.6 fl (7.4-10.4); PLATELET 194 x1000/uL (130-400); RED BLOOD CELL COUNT 3.93 mill/uL (4.2-5.4); RED CELL DISTRIBUTION WIDTH 18.4 % (11.6-14.6); WHITE BLOOD COUNT 15.4 x1000/uL (4.5-11.0)
[2025-01-18 17:19] LABS: DIFFERENTIAL COMMENT 1
[2025-01-18 17:24] LABS: CHLORIDE 101 mEq/L (98-107); POTASSIUM 2.9 mEq/L (3.5-5.1); SODIUM 137 mEq/L (136-145)
[2025-01-18 17:25] LABS: CARBON DIOXIDE 21 mEq/L (21-32)
[2025-01-18 17:26] LABS: CALCIUM 7.1 mg/dL (8.7-10.4)
[2025-01-18 17:29] LABS: ANISOCYTOSIS 1+; PLATELET ESTIMATE NORMAL
[2025-01-18 17:30] LABS: GLUCOSE 104 mg/dL (70-105)
[2025-01-18 17:31] LABS: UREA NITROGEN BLOOD 42 mg/dL (9-23)
[2025-01-18 17:32] LABS: ALANINE AMINOTRANSFERASE < 7 IU/L (10-49); ALBUMIN 2.8 g/dL (3.2-4.8); ASPARTATE AMINOTRANSFERASE 13 IU/L (<34)
[2025-01-18 17:33] LABS: BILIRUBIN DIRECT 0.4 mg/dL (<=3.0); BILIRUBIN TOTAL 0.8 mg/dL (0.1-1.0); PROTEIN TOTAL 6.7 g/dL (6.0-8.3)
[2025-01-18 17:37] LABS: CREATININE 6.9 mg/dL (0.6-1.0)
[2025-01-18 17:47] LABS: INR 1.2; PROTHROMBIN TIME 12.7 sec (9.6-11.0)
[2025-01-18] MEDS: EPOETIN ALFA-EPBX 4,000 UNIT/ML VIAL SUBCUT SCH (21:00)
[2025-01-19] VITALS (15 sets, daily range): BP systolic 103–112; BP diastolic 57–96; PULSE 122–134; RESP 17–37; TEMP 36.6–37.6; O2SAT 90–99
[2025-01-19] MEDS: HYDROCODONE/ACETAMINOPHEN 5/325MG TABLET PO PRN (04:11)
[2025-01-19] MEDS: POTASSIUM CHLORIDE 20MEQ TABLET SR PO SCH (09:00)
[2025-01-19] MEDS: DIPHENHYDRAMINE 50MG/ML VIAL IV PRN (11:41)
[2025-01-19] MEDS: LINEZOLID 600MG TABLET PO SCH (20:42)
[2025-01-20] VITALS (13 sets, daily range): BP systolic 105–129; BP diastolic 67–100; PULSE 119–130; RESP 9–30; TEMP 36.7–38.1
[2025-01-20 18:33] LABS: BASOPHILS % 0.9 % (0.0-2.0); EOSINOPHILS % 1.7 % (0.0-5.0); HEMATOCRIT. 30.4 % (36.0-48.0); LYMPHOCYTES % 8.3 % (20.0-50.0); MEAN CORPUSCULAR HEMOGLOBIN 27.5 pg (28.0-32.0); MEAN CORPUSCULAR HGB CONC 32.9 g/dL (31.0-37.0); MEAN CORPUSCULAR VOLUME 83.5 fL (81.0-99.0); MEAN PLATELET VOLUME 9.3 fl (7.4-10.4); MONOCYTES % 8.4 % (2.0-8.0); NEUTROPHILS % 80.7 % (40.0-76.0); PLATELET 219 x1000/uL (130-400); RED BLOOD CELL COUNT 3.65 mill/uL (4.2-5.4); RED CELL DISTRIBUTION WIDTH 18.6 % (11.6-14.6); WHITE BLOOD COUNT 13.4 x1000/uL (4.5-11.0)
[2025-01-20 18:37] LABS: POTASSIUM 3.1 mEq/L (3.5-5.1)
[2025-01-20 18:38] LABS: CALCIUM 7.6 mg/dL (8.7-10.4)
[2025-01-20 18:48] LABS: CREATININE 7.6 mg/dL (0.6-1.0)
[2025-01-20] MEDS: LORAZEPAM 2MG/ML UD SYRINGE IM NR (19:58)
[2025-01-21] VITALS: BP 122/84; PULSE 100; RESP 20; TEMP 36.2; O2SAT 88
[2025-01-21 02:00] VITALS: BP 122/84; PULSE 100; RESP 20; TEMP 36.2; O2SAT 88
[2025-01-21] MEDS: QUETIAPINE FUMARATE 25MG TABLET PO SCH (09:00)
[2025-01-21 12:06] VITALS: BP 142/95; PULSE 125; RESP 18; TEMP 36.4; O2SAT 91
[2025-01-21] MEDS: ONDANSETRON HCL 4MG/2ML INJ IM NR (12:27)
[2025-01-21 15:57] VITALS: BP 131/91; PULSE 127; RESP 18; TEMP 36.3; O2SAT 93
[2025-01-21 20:00] VITALS: BP 127/88; PULSE 120; RESP 17; TEMP 36.6; O2SAT 96
[2025-01-22] VITALS: BP 132/67; PULSE 121; RESP 19; TEMP 36.9; O2SAT 97
[2025-01-22 04:00] VITALS: BP 136/89; PULSE 117; RESP 17; TEMP 36.6; O2SAT 97
[2025-01-22 08:00] VITALS: BP 113/77; PULSE 98; RESP 18; TEMP 36.4; O2SAT 99
[2025-01-22 12:00] VITALS: BP 119/82; PULSE 94; RESP 18; TEMP 36.3; O2SAT 100
[2025-01-22 16:00] VITALS: BP 123/88; PULSE 102; RESP 19; TEMP 36.8; O2SAT 100
[2025-01-22 20:00] VITALS: BP 130/79; PULSE 119; RESP 17; TEMP 36.6; O2SAT 97
[2025-01-23] VITALS: BP 123/81; PULSE 121; RESP 18; TEMP 36.4; O2SAT 100
[2025-01-23 04:00] VITALS: BP 128/89; PULSE 123; RESP 18; TEMP 36.4; O2SAT 99
[2025-01-23 08:00] VITALS: BP 117/72; PULSE 105; RESP 20; TEMP 36.2; O2SAT 100
[2025-01-23] MEDS ORDERED: LIDOCAINE HCL 1% 10 MG/ML 10ML VIAL ONE (09:19)
[2025-01-23] MEDS ORDERED: NALOXONE HCL 0.4MG/ML 1ML VIAL IV ONE (10:45)
[2025-01-23] MEDS ORDERED: NALOXONE HCL 0.4MG/ML VIAL IV PRN (10:45)
[2025-01-23] MEDS: ONDANSETRON HCL 4MG/2ML INJ IV PRN (11:10)
[2025-01-23] MEDS: HYDROCODONE/ACETAMINOPHEN 5/325MG TABLET PO PRN (11:10)
[2025-01-23 11:57] LABS: HEMATOCRIT. 28.7 % (36.0-48.0); HEMOGLOBIN. 9.1 g/dL (12.0-16.0); MEAN CORPUSCULAR HEMOGLOBIN 26.2 pg (28.0-32.0); MEAN CORPUSCULAR HGB CONC 31.5 g/dL (31.0-37.0); MEAN PLATELET VOLUME 8.8 fl (7.4-10.4); PLATELET 252 x1000/uL (130-400); RED BLOOD CELL COUNT 3.46 mill/uL (4.2-5.4); RED CELL DISTRIBUTION WIDTH 19.4 % (11.6-14.6); WHITE BLOOD COUNT 11.2 x1000/uL (4.5-11.0)
[2025-01-23 11:58] LABS: DIFFERENTIAL COMMENT 1
[2025-01-23 12:00] VITALS: BP 127/72; PULSE 109; RESP 18; TEMP 36.7; O2SAT 99
[2025-01-23 12:07] LABS: POTASSIUM 3.4 mEq/L (3.5-5.1)
[2025-01-23 12:09] LABS: CALCIUM 7.3 mg/dL (8.7-10.4)
[2025-01-23 14:26] LABS: ANISOCYTOSIS 1+; PLATELET ESTIMATE NORMAL
[2025-01-23 16:00] VITALS: BP 135/70; PULSE 109; RESP 20; TEMP 36.7; O2SAT 100
[2025-01-23 20:00] VITALS: BP 127/70; PULSE 129; RESP 20; TEMP 36.8; O2SAT 100
[2025-01-23] MEDS: SODIUM HYPOCHLORITE (0.25%) 480ML SOLUTION (HALF STRENGTH) TOP SCH (21:00)
[2025-01-24] VITALS (10 sets, daily range): BP systolic 92–144; BP diastolic 50–87; PULSE 81–125; RESP 18–24; TEMP 36.2–36.6; O2SAT 20–100
[2025-01-24 07:15] LABS: POTASSIUM 3.4 mEq/L (3.5-5.1)
[2025-01-24 07:16] LABS: CALCIUM 7.3 mg/dL (8.7-10.4)
[2025-01-24 07:23] LABS: HEMATOCRIT. 27.8 % (36.0-48.0); MEAN CORPUSCULAR HEMOGLOBIN 26.6 pg (28.0-32.0); MEAN CORPUSCULAR HGB CONC 32.2 g/dL (31.0-37.0); MEAN CORPUSCULAR VOLUME 82.6 fL (81.0-99.0); MEAN PLATELET VOLUME 8.8 fl (7.4-10.4); PLATELET 241 x1000/uL (130-400); RED BLOOD CELL COUNT 3.37 mill/uL (4.2-5.4); RED CELL DISTRIBUTION WIDTH 19.2 % (11.6-14.6); WHITE BLOOD COUNT 11.2 x1000/uL (4.5-11.0)
[2025-01-24 07:31] LABS: CREATININE 10.2 mg/dL (0.6-1.0)
[2025-01-24 07:49] LABS: DIFFERENTIAL COMMENT 1
[2025-01-24] MEDS ORDERED: PHENYLEPHRINE HCL 10MG/ML 1ML IV ONE (08:45)
[2025-01-24] MEDS ORDERED: PROPOFOL 200MG/20ML VIAL IV ONE (08:45)
[2025-01-24] MEDS ORDERED: EPHEDRINE SULFATE 50MG/ML VIAL ONE (08:45)
[2025-01-24] MEDS ORDERED: ONDANSETRON HCL 4MG/2ML INJ IV PRN (08:45)
[2025-01-24] MEDS ORDERED: NALOXONE HCL 0.4MG/ML VIAL IV PRN (08:45)
[2025-01-24 08:52] LABS: ANISOCYTOSIS 2+; HYPOCHROMASIA 1+; PLATELET ESTIMATE NORMAL; TARGET CELLS 1+
[2025-01-24] MEDS ORDERED: LIDOCAINE HCL 1% 10 MG/ML 10ML VIAL ONE (08:52)
[2025-01-24] MEDS ORDERED: CEFAZOLIN 1000MG PREMIX 50 ML IV ONE (09:25)
[2025-01-24] MEDS ORDERED: HEPARIN 100 UNITS/1 ML VIAL IVF PRN (10:30)
[2025-01-24] MEDS: HYDROMORPHONE HCL/PF 1MG/ML INJ IV PRN (10:41)
[2025-01-25] VITALS: BP 133/58; PULSE 129; RESP 18; TEMP 36.4; O2SAT 99
[2025-01-25 04:00] VITALS: BP 137/65; PULSE 120; RESP 18; TEMP 36.6; O2SAT 99
[2025-01-25 08:43] VITALS: BP 131/78; PULSE 124; RESP 17; TEMP 36.1; O2SAT 100
[2025-01-25 13:22] VITALS: BP 146/86; PULSE 123; RESP 18; TEMP 36.1; O2SAT 96
[2025-01-25] MEDS ORDERED: DIPHENHYDRAMINE 50MG/ML VIAL IV PRN (18:15)
[2025-01-25 20:00] VITALS: BP 130/81; PULSE 123; RESP 18; TEMP 36.7; O2SAT 99
[2025-01-26] VITALS (11 sets, daily range): BP systolic 82–135; BP diastolic 50–117; PULSE 81–127; RESP 17–20; TEMP 36.3918–37.1; O2SAT 96–100
[2025-01-27] VITALS (9 sets, daily range): BP systolic 92–121; BP diastolic 34–79; PULSE 76–135; RESP 16–20; TEMP 36.2–37; O2SAT 96–100
[2025-01-28] VITALS: BP 99/39; PULSE 123; RESP 18; TEMP 36.4; O2SAT 96
[2025-01-28 04:46] VITALS: BP 110/93; PULSE 112; RESP 20; TEMP 36.2; O2SAT 99
[2025-01-28 08:00] VITALS: BP 120/78; PULSE 121; RESP 18; TEMP 36.1; O2SAT 97
[2025-01-28 12:00] VITALS: BP 108/86; PULSE 80; RESP 18; TEMP 36.4; O2SAT 95
[2025-01-28 16:00] VITALS: BP 116/73; PULSE 108; RESP 20; TEMP 36.7; O2SAT 96
[2025-01-28 20:00] VITALS: BP 117/76; PULSE 72; RESP 18; TEMP 36.3; O2SAT 95
[2025-01-29] VITALS (16 sets, daily range): BP systolic 92–134; BP diastolic 25–95; PULSE 45–140; RESP 16–20; TEMP 36.3–37.1; O2SAT 95–99
[2025-01-30] VITALS: BP 87/69; PULSE 78; RESP 18; TEMP 36.6; O2SAT 95
[2025-01-30 04:00] VITALS: BP 123/61; RESP 18; TEMP 36.9; O2SAT 96
[2025-01-30 08:00] VITALS: BP 98/49; PULSE 123; RESP 18; TEMP 37.2; O2SAT 95
[2025-01-30 12:23] VITALS: BP 114/71; PULSE 118; RESP 20; TEMP 36.5; O2SAT 96
[2025-01-30 17:19] VITALS: BP 109/50; PULSE 125; RESP 20; TEMP 37.1; O2SAT 97
[2025-01-30 20:00] VITALS: BP 109/65; PULSE 119; RESP 18; TEMP 36.7; O2SAT 96
[2025-01-31] VITALS (18 sets, daily range): BP systolic 88–143; BP diastolic 34–97; PULSE 70–125; RESP 16–20; TEMP 36.1–37.05852; O2SAT 97–100
[2025-01-31 16:03] LABS: MEAN CORPUSCULAR HEMOGLOBIN 26.4 pg (28.0-32.0); MEAN CORPUSCULAR HGB CONC 31.1 g/dL (31.0-37.0); MEAN CORPUSCULAR VOLUME 84.9 fL (81.0-99.0); PLATELET 141 x1000/uL (130-400); RED BLOOD CELL COUNT 2.33 mill/uL (4.2-5.4); RED CELL DISTRIBUTION WIDTH 19.6 % (11.6-14.6); WHITE BLOOD COUNT 4.9 x1000/uL (4.5-11.0)
[2025-01-31 16:06] LABS: HEMATOCRIT 19.7 % (36.0-48.0); HEMOGLOBIN 6.1 g/dL (12.0-16.0)
[2025-01-31 16:14] LABS: CALCIUM 6.5 mg/dL (8.7-10.4)
[2025-01-31 16:20] LABS: CREATININE 6.1 mg/dL (0.6-1.0)
[2025-01-31] MEDS: POTASSIUM CHLORIDE 20MEQ TABLET SR PO NR (17:00)
[2025-02-01] VITALS (11 sets, daily range): BP systolic 113–133; BP diastolic 26–98; PULSE 113–125; RESP 16–20; TEMP 36.2–37.2; O2SAT 95–98
[2025-02-02] VITALS (9 sets, daily range): BP systolic 96–139; BP diastolic 31–88; PULSE 86–125; RESP 18–22; TEMP 36.1–37.1; O2SAT 96–100
[2025-02-02] MEDS: DIPHENHYDRAMINE 50MG/ML VIAL IV SCH (08:23)
[2025-02-02 09:24] LABS: BASOPHILS % 0.7 % (0.0-2.0); EOSINOPHILS % 3.4 % (0.0-5.0); HEMATOCRIT. 33.1 % (36.0-48.0); HEMOGLOBIN. 10.8 g/dL (12.0-16.0); LYMPHOCYTES % 13.4 % (20.0-50.0); MEAN CORPUSCULAR HEMOGLOBIN 28.8 pg (28.0-32.0); MEAN CORPUSCULAR HGB CONC 32.7 g/dL (31.0-37.0); MEAN CORPUSCULAR VOLUME 88.2 fL (81.0-99.0); MEAN PLATELET VOLUME 9.2 fl (7.4-10.4); MONOCYTES % 8.7 % (2.0-8.0); NEUTROPHILS % 73.8 % (40.0-76.0); PLATELET 142 x1000/uL (130-400); RED BLOOD CELL COUNT 3.75 mill/uL (4.2-5.4); RED CELL DISTRIBUTION WIDTH 18.1 % (11.6-14.6)
[2025-02-02 09:37] LABS: CALCIUM 7.5 mg/dL (8.7-10.4); CARBON DIOXIDE 25 mEq/L (21-32); CHLORIDE 101 mEq/L (98-107); POTASSIUM 3.2 mEq/L (3.5-5.1); SODIUM 136 mEq/L (136-145)
[2025-02-02 09:42] LABS: GLUCOSE 99 mg/dL (70-105)
[2025-02-02 09:43] LABS: UREA NITROGEN BLOOD 27 mg/dL (9-23)
[2025-02-02 09:44] LABS: PHOSPHORUS 1.9 mg/dL (2.5-4.9)
[2025-02-02 09:48] LABS: CREATININE 3.8 mg/dL (0.6-1.0)
[2025-02-03 04:00] VITALS: RESP 19
[2025-02-03 08:26] VITALS: BP 141/89; PULSE 116; RESP 18; TEMP 35.9; O2SAT 98
[2025-02-03 12:00] VITALS: BP 137/74; PULSE 119; RESP 20; TEMP 36.2; O2SAT 96
[2025-02-03 12:53] VITALS: BP 137/74; PULSE 119; RESP 20; TEMP 36.1; O2SAT 96
[2025-02-03 16:00] VITALS: BP 134/76; PULSE 117; RESP 19; TEMP 35.6; O2SAT 100
[2025-02-03 19:01] VITALS: PULSE 84
[2025-02-03] MEDS: POTASSIUM CHLORIDE 20MEQ TABLET SR PO SCH (20:15)
[2025-02-04] VITALS: BP 138/106; PULSE 115; RESP 18; TEMP 36.3; O2SAT 98
[2025-02-04 08:00] VITALS: BP 148/87; PULSE 116; RESP 16; TEMP 36.2; O2SAT 95
[2025-02-04 12:00] VITALS: BP 147/81; PULSE 114; RESP 16; TEMP 36.4; O2SAT 97
[2025-02-04 16:00] VITALS: BP 140/88; PULSE 118; RESP 18; TEMP 36.5; O2SAT 95
[2025-02-04 20:00] VITALS: BP 131/88; PULSE 117; RESP 20; TEMP 37; O2SAT 99
[2025-02-05] VITALS (9 sets, daily range): BP systolic 91–168; BP diastolic 59–113; PULSE 66–130; RESP 18–20; TEMP 35.9–36.7; O2SAT 98–99
[2025-02-05 17:30] LABS: HEMATOCRIT 30.4 % (36.0-48.0); HEMOGLOBIN 9.9 g/dL (12.0-16.0); MEAN CORPUSCULAR HEMOGLOBIN 28.2 pg (28.0-32.0); MEAN CORPUSCULAR HGB CONC 32.6 g/dL (31.0-37.0); MEAN CORPUSCULAR VOLUME 86.6 fL (81.0-99.0); PLATELET 167 x1000/uL (130-400); RED BLOOD CELL COUNT 3.51 mill/uL (4.2-5.4); RED CELL DISTRIBUTION WIDTH 18.1 % (11.6-14.6); WHITE BLOOD COUNT 5.9 x1000/uL (4.5-11.0)
[2025-02-05 17:38] LABS: POTASSIUM 4.1 mEq/L (3.5-5.1)
[2025-02-05] MEDS: SODIUM CHLORIDE 0.9% (SEPSIS BOLUS) IV ONE (17:38)
[2025-02-05 17:39] LABS: CALCIUM 7.3 mg/dL (8.7-10.4)
[2025-02-05 17:44] LABS: CREATININE 4.7 mg/dL (0.6-1.0)
[2025-02-05 21:26] LABS: POTASSIUM 4.6 mEq/L (3.5-5.1)
[2025-02-05 21:27] LABS: CALCIUM 7.3 mg/dL (8.7-10.4)
[2025-02-05 21:32] LABS: CREATININE 4.7 mg/dL (0.6-1.0)
[2025-02-06] VITALS: BP 128/87; PULSE 98; RESP 19; TEMP 36.7; O2SAT 98
[2025-02-06 04:00] VITALS: BP 135/89; PULSE 101; RESP 18; TEMP 36.7; O2SAT 98
[2025-02-06 08:00] VITALS: BP 166/73; PULSE 119; RESP 20; TEMP 36.8; O2SAT 99
[2025-02-06 16:00] VITALS: BP 147/84; PULSE 87; RESP 19; TEMP 36.2; O2SAT 97
[2025-02-06 20:00] VITALS: BP 97/79; PULSE 114; RESP 20; TEMP 37.2; O2SAT 100
[2025-02-07] VITALS (15 sets, daily range): BP systolic 108–136; BP diastolic 31–94; PULSE 95–132; RESP 16–52; TEMP 35.66952–36.4; O2SAT 96–99
[2025-02-07 19:59] LABS: HEPATITIS B SURFACE AB 24.6 mIU/mL (<10)
[2025-02-07 20:10] LABS: HEPATITIS B SURFACE ANTIGEN NEGATIVE (Negative)
[2025-02-07 20:31] LABS: HEPATITIS A AB IGM NEGATIVE (Negative)
[2025-02-07 20:32] LABS: HEPATITIS B CORE AB IGM NEGATIVE (Negative); HEPATITIS C AB NON REACTIVE (Neg) (Negative)
[2025-02-08] VITALS: BP 122/76; PULSE 130; RESP 20; TEMP 36.4; O2SAT 97
[2025-02-08 04:00] VITALS: BP 115/82; PULSE 121; RESP 18; TEMP 36; O2SAT 97
[2025-02-08 08:00] VITALS: BP 80/41; PULSE 54; RESP 17; TEMP 36.2; O2SAT 96
[2025-02-08] MEDS: LINEZOLID 600MG TABLET PO SCH (09:17)
[2025-02-08] MEDS: AMOXICILLIN/POTASSIUM CLAVULANATE 500/125MG TAB PO SCH (09:17)
[2025-02-08 12:00] VITALS: BP 131/91; PULSE 103; RESP 16; TEMP 36.3; O2SAT 96
[2025-02-08 16:00] VITALS: BP_SYST 119; BP_SYST 120; BP_DIAS 60; BP_DIAS 83; PULSE 80; PULSE 95; RESP 16; TEMP 36.2; O2SAT 96
[2025-02-08] MEDS: DIPHENHYDRAMINE 50MG/ML VIAL IV PRN (17:52)
[2025-02-08 20:00] VITALS: BP 117/50; PULSE 130; RESP 18; TEMP 36.7; O2SAT 98
[2025-02-09] VITALS (11 sets, daily range): BP systolic 108–176; BP diastolic 51–110; PULSE 60–131; RESP 17–19; TEMP 36.114–37.2; O2SAT 96–100
[2025-02-10 11:57] VITALS: BP 125/71; PULSE 12; RESP 18; TEMP 36.7
[2025-02-10 15:47] VITALS: BP 134/55; PULSE 125; TEMP 97.9; O2SAT 97
[2025-02-10 16:00] VITALS: BP 134/5; PULSE 18; RESP 18; TEMP 36.6
== END 2025-02-10 17:28 | DRG 182 ==
LOC: ER 20:43 → EDBEDREQ 21:36 → EDBEDREQSVC 06-18 00:27 → 5WST 06-18 06:59 → 8WST 06-18 16:36 → 6EST 06-27 01:38 → 6WST 07-07 10:21 → 6EST 09-09 00:45 → 6WST 09-09 23:41 → 7EST 10-09 07:43 → 4WST 10-10 18:22 → 7EST 10-10 18:23 → 3WST 12-22 00:20 → 6EST 12-27 11:33 → 8WST 01-15 14:42 → 5EST 01-17 23:28 → 7WST 01-20 23:54 → 8EST 02-03 14:58 → 6WST 02-05 18:33
PROVIDERS: ADMIT Internal Medicine; ATTEND Internal Medicine
PROC: 5A1D70Z Performance of Urinary Filtration, Intermittent, Less than 6 Hours Per Day (ICD-10-PCS; 2024-06-18)
PROC: 5A1D70Z Performance of Urinary Filtration, Intermittent, Less than 6 Hours Per Day (ICD-10-PCS; 2024-06-20)
PROC: 03B80ZZ Excision of Left Brachial Artery, Open Approach (ICD-10-PCS; 2024-06-21)
PROC: 06HY33Z Insertion of Infusion Device into Lower Vein, Percutaneous Approach (ICD-10-PCS; 2024-06-21)
PROC: B54CZZA Ultrasonography of Left Lower Extremity Veins, Guidance (ICD-10-PCS; 2024-06-21)
PROC: 5A1D70Z Performance of Urinary Filtration, Intermittent, Less than 6 Hours Per Day (ICD-10-PCS; 2024-06-22)
PROC: 0JH63XZ Insertion of Tunneled Vascular Access Device into Chest Subcutaneous Tissue and Fascia, Percutaneous Approach (ICD-10-PCS; 2024-06-23)
PROC: 02H633Z Insertion of Infusion Device into Right Atrium, Percutaneous Approach (ICD-10-PCS; 2024-06-23)
PROC: B5181ZA Fluoroscopy of Superior Vena Cava using Low Osmolar Contrast, Guidance (ICD-10-PCS; 2024-06-23)
PROC: 5A1D70Z Performance of Urinary Filtration, Intermittent, Less than 6 Hours Per Day (ICD-10-PCS; 2024-06-24)
PROC: 5A1D70Z Performance of Urinary Filtration, Intermittent, Less than 6 Hours Per Day (ICD-10-PCS; 2024-06-26)
PROC: 5A1D70Z Performance of Urinary Filtration, Intermittent, Less than 6 Hours Per Day (ICD-10-PCS; 2024-06-28)
PROC: 5A1D70Z Performance of Urinary Filtration, Intermittent, Less than 6 Hours Per Day (ICD-10-PCS; 2024-07-01)
PROC: 5A1D70Z Performance of Urinary Filtration, Intermittent, Less than 6 Hours Per Day (ICD-10-PCS; 2024-07-04)
PROC: 5A1D70Z Performance of Urinary Filtration, Intermittent, Less than 6 Hours Per Day (ICD-10-PCS; 2024-07-06)
PROC: 5A1D70Z Performance of Urinary Filtration, Intermittent, Less than 6 Hours Per Day (ICD-10-PCS; 2024-07-08)
PROC: 5A1D70Z Performance of Urinary Filtration, Intermittent, Less than 6 Hours Per Day (ICD-10-PCS; 2024-07-11)
PROC: 5A1D70Z Performance of Urinary Filtration, Intermittent, Less than 6 Hours Per Day (ICD-10-PCS; 2024-07-13)
PROC: 5A1D70Z Performance of Urinary Filtration, Intermittent, Less than 6 Hours Per Day (ICD-10-PCS; 2024-07-15)
PROC: 5A1D70Z Performance of Urinary Filtration, Intermittent, Less than 6 Hours Per Day (ICD-10-PCS; 2024-07-18)
PROC: 5A1D70Z Performance of Urinary Filtration, Intermittent, Less than 6 Hours Per Day (ICD-10-PCS; 2024-07-20)
PROC: 5A1D70Z Performance of Urinary Filtration, Intermittent, Less than 6 Hours Per Day (ICD-10-PCS; 2024-07-22)
PROC: 5A1D70Z Performance of Urinary Filtration, Intermittent, Less than 6 Hours Per Day (ICD-10-PCS; 2024-07-24)
PROC: 5A1D70Z Performance of Urinary Filtration, Intermittent, Less than 6 Hours Per Day (ICD-10-PCS; 2024-07-26)
PROC: 5A1D70Z Performance of Urinary Filtration, Intermittent, Less than 6 Hours Per Day (ICD-10-PCS; 2024-07-29)
PROC: 5A1D70Z Performance of Urinary Filtration, Intermittent, Less than 6 Hours Per Day (ICD-10-PCS; 2024-08-01)
PROC: 5A1D70Z Performance of Urinary Filtration, Intermittent, Less than 6 Hours Per Day (ICD-10-PCS; 2024-08-03)
PROC: 5A1D70Z Performance of Urinary Filtration, Intermittent, Less than 6 Hours Per Day (ICD-10-PCS; 2024-08-05)
PROC: 5A1D70Z Performance of Urinary Filtration, Intermittent, Less than 6 Hours Per Day (ICD-10-PCS; 2024-08-08)
PROC: 5A1D70Z Performance of Urinary Filtration, Intermittent, Less than 6 Hours Per Day (ICD-10-PCS; 2024-08-10)
PROC: 5A1D70Z Performance of Urinary Filtration, Intermittent, Less than 6 Hours Per Day (ICD-10-PCS; 2024-08-12)
PROC: 5A1D70Z Performance of Urinary Filtration, Intermittent, Less than 6 Hours Per Day (ICD-10-PCS; 2024-08-15)
PROC: 5A1D70Z Performance of Urinary Filtration, Intermittent, Less than 6 Hours Per Day (ICD-10-PCS; 2024-08-18)
PROC: 5A1D70Z Performance of Urinary Filtration, Intermittent, Less than 6 Hours Per Day (ICD-10-PCS; 2024-08-21)
PROC: 5A1D70Z Performance of Urinary Filtration, Intermittent, Less than 6 Hours Per Day (ICD-10-PCS; 2024-08-23)
PROC: 5A1D70Z Performance of Urinary Filtration, Intermittent, Less than 6 Hours Per Day (ICD-10-PCS; 2024-08-25)
PROC: 5A1D70Z Performance of Urinary Filtration, Intermittent, Less than 6 Hours Per Day (ICD-10-PCS; 2024-08-28)
PROC: 5A1D70Z Performance of Urinary Filtration, Intermittent, Less than 6 Hours Per Day (ICD-10-PCS; 2024-09-01)
PROC: 5A1D70Z Performance of Urinary Filtration, Intermittent, Less than 6 Hours Per Day (ICD-10-PCS; 2024-09-04)
PROC: 5A1D70Z Performance of Urinary Filtration, Intermittent, Less than 6 Hours Per Day (ICD-10-PCS; 2024-09-06)
PROC: 5A1D70Z Performance of Urinary Filtration, Intermittent, Less than 6 Hours Per Day (ICD-10-PCS; 2024-09-08)
PROC: 5A1D70Z Performance of Urinary Filtration, Intermittent, Less than 6 Hours Per Day (ICD-10-PCS; 2024-09-11)
PROC: 5A1D70Z Performance of Urinary Filtration, Intermittent, Less than 6 Hours Per Day (ICD-10-PCS; 2024-09-13)
PROC: 5A1D70Z Performance of Urinary Filtration, Intermittent, Less than 6 Hours Per Day (ICD-10-PCS; 2024-09-15)
PROC: 5A1D70Z Performance of Urinary Filtration, Intermittent, Less than 6 Hours Per Day (ICD-10-PCS; 2024-09-18)
PROC: 5A1D70Z Performance of Urinary Filtration, Intermittent, Less than 6 Hours Per Day (ICD-10-PCS; 2024-09-21)
PROC: 5A1D70Z Performance of Urinary Filtration, Intermittent, Less than 6 Hours Per Day (ICD-10-PCS; 2024-09-23)
PROC: 5A1D70Z Performance of Urinary Filtration, Intermittent, Less than 6 Hours Per Day (ICD-10-PCS; 2024-09-26)
PROC: 0JPTXXZ Removal of Tunneled Vascular Access Device from Trunk Subcutaneous Tissue and Fascia, External Approach (ICD-10-PCS; 2024-09-27)
PROC: 5A1D70Z Performance of Urinary Filtration, Intermittent, Less than 6 Hours Per Day (ICD-10-PCS; 2024-09-29)
PROC: 5A1D70Z Performance of Urinary Filtration, Intermittent, Less than 6 Hours Per Day (ICD-10-PCS; 2024-10-02)
PROC: 5A1D70Z Performance of Urinary Filtration, Intermittent, Less than 6 Hours Per Day (ICD-10-PCS; 2024-10-04)
PROC: 5A1D70Z Performance of Urinary Filtration, Intermittent, Less than 6 Hours Per Day (ICD-10-PCS; 2024-10-06)
PROC: 5A1D70Z Performance of Urinary Filtration, Intermittent, Less than 6 Hours Per Day (ICD-10-PCS; 2024-10-09)
PROC: 5A1D70Z Performance of Urinary Filtration, Intermittent, Less than 6 Hours Per Day (ICD-10-PCS; 2024-10-11)
PROC: 5A1D70Z Performance of Urinary Filtration, Intermittent, Less than 6 Hours Per Day (ICD-10-PCS; 2024-10-13)
PROC: 5A1D70Z Performance of Urinary Filtration, Intermittent, Less than 6 Hours Per Day (ICD-10-PCS; 2024-10-16)
PROC: 5A1D70Z Performance of Urinary Filtration, Intermittent, Less than 6 Hours Per Day (ICD-10-PCS; 2024-10-18)
PROC: 5A1D70Z Performance of Urinary Filtration, Intermittent, Less than 6 Hours Per Day (ICD-10-PCS; 2024-10-20)
PROC: 5A1D70Z Performance of Urinary Filtration, Intermittent, Less than 6 Hours Per Day (ICD-10-PCS; 2024-10-23)
PROC: 5A1D70Z Performance of Urinary Filtration, Intermittent, Less than 6 Hours Per Day (ICD-10-PCS; 2024-10-25)
PROC: 5A1D70Z Performance of Urinary Filtration, Intermittent, Less than 6 Hours Per Day (ICD-10-PCS; 2024-10-27)
PROC: 5A1D70Z Performance of Urinary Filtration, Intermittent, Less than 6 Hours Per Day (ICD-10-PCS; 2024-10-30)
PROC: 5A1D70Z Performance of Urinary Filtration, Intermittent, Less than 6 Hours Per Day (ICD-10-PCS; 2024-11-01)
PROC: 5A1D70Z Performance of Urinary Filtration, Intermittent, Less than 6 Hours Per Day (ICD-10-PCS; 2024-11-03)
PROC: 5A1D70Z Performance of Urinary Filtration, Intermittent, Less than 6 Hours Per Day (ICD-10-PCS; 2024-11-06)
PROC: 5A1D70Z Performance of Urinary Filtration, Intermittent, Less than 6 Hours Per Day (ICD-10-PCS; 2024-11-08)
PROC: 5A1D70Z Performance of Urinary Filtration, Intermittent, Less than 6 Hours Per Day (ICD-10-PCS; 2024-11-10)
PROC: 5A1D70Z Performance of Urinary Filtration, Intermittent, Less than 6 Hours Per Day (ICD-10-PCS; 2024-11-13)
PROC: 5A1D70Z Performance of Urinary Filtration, Intermittent, Less than 6 Hours Per Day (ICD-10-PCS; 2024-11-15)
PROC: 5A1D70Z Performance of Urinary Filtration, Intermittent, Less than 6 Hours Per Day (ICD-10-PCS; 2024-11-17)
PROC: 5A1D70Z Performance of Urinary Filtration, Intermittent, Less than 6 Hours Per Day (ICD-10-PCS; 2024-11-20)
PROC: 5A1D70Z Performance of Urinary Filtration, Intermittent, Less than 6 Hours Per Day (ICD-10-PCS; 2024-11-22)
PROC: 5A1D70Z Performance of Urinary Filtration, Intermittent, Less than 6 Hours Per Day (ICD-10-PCS; 2024-11-24)
PROC: 5A1D70Z Performance of Urinary Filtration, Intermittent, Less than 6 Hours Per Day (ICD-10-PCS; 2024-11-27)
PROC: 5A1D70Z Performance of Urinary Filtration, Intermittent, Less than 6 Hours Per Day (ICD-10-PCS; 2024-11-29)
PROC: 5A1D70Z Performance of Urinary Filtration, Intermittent, Less than 6 Hours Per Day (ICD-10-PCS; 2024-12-01)
PROC: 5A1D70Z Performance of Urinary Filtration, Intermittent, Less than 6 Hours Per Day (ICD-10-PCS; 2024-12-04)
PROC: 5A1D70Z Performance of Urinary Filtration, Intermittent, Less than 6 Hours Per Day (ICD-10-PCS; 2024-12-06)
PROC: 5A1D70Z Performance of Urinary Filtration, Intermittent, Less than 6 Hours Per Day (ICD-10-PCS; 2024-12-08)
PROC: 5A1D70Z Performance of Urinary Filtration, Intermittent, Less than 6 Hours Per Day (ICD-10-PCS; 2024-12-11)
PROC: 5A1D70Z Performance of Urinary Filtration, Intermittent, Less than 6 Hours Per Day (ICD-10-PCS; 2024-12-13)
PROC: 5A1D70Z Performance of Urinary Filtration, Intermittent, Less than 6 Hours Per Day (ICD-10-PCS; 2024-12-15)
PROC: 5A1D70Z Performance of Urinary Filtration, Intermittent, Less than 6 Hours Per Day (ICD-10-PCS; 2024-12-18)
PROC: 03C80ZZ Extirpation of Matter from Left Brachial Artery, Open Approach (ICD-10-PCS; principal; 2024-12-22)
PROC: 03L80ZZ Occlusion of Left Brachial Artery, Open Approach (ICD-10-PCS; 2024-12-22)
PROC: 30233N1 Transfusion of Nonautologous Red Blood Cells into Peripheral Vein, Percutaneous Approach (ICD-10-PCS; 2024-12-22)
PROC: 06HY33Z Insertion of Infusion Device into Lower Vein, Percutaneous Approach (ICD-10-PCS; 2024-12-22)
PROC: B54BZZA Ultrasonography of Right Lower Extremity Veins, Guidance (ICD-10-PCS; 2024-12-22)
PROC: 0JBF0ZZ Excision of Left Upper Arm Subcutaneous Tissue and Fascia, Open Approach (ICD-10-PCS; 2024-12-22)
PROC: 5A1D70Z Performance of Urinary Filtration, Intermittent, Less than 6 Hours Per Day (ICD-10-PCS; 2024-12-22)
PROC: 5A1D70Z Performance of Urinary Filtration, Intermittent, Less than 6 Hours Per Day (ICD-10-PCS; 2024-12-24)
PROC: 5A1D70Z Performance of Urinary Filtration, Intermittent, Less than 6 Hours Per Day (ICD-10-PCS; 2024-12-27)
PROC: 5A1D70Z Performance of Urinary Filtration, Intermittent, Less than 6 Hours Per Day (ICD-10-PCS; 2024-12-29)
PROC: 5A1D70Z Performance of Urinary Filtration, Intermittent, Less than 6 Hours Per Day (ICD-10-PCS; 2025-01-01)
PROC: 5A1D70Z Performance of Urinary Filtration, Intermittent, Less than 6 Hours Per Day (ICD-10-PCS; 2025-01-04)
PROC: 5A1D70Z Performance of Urinary Filtration, Intermittent, Less than 6 Hours Per Day (ICD-10-PCS; 2025-01-06)
PROC: 5A1D70Z Performance of Urinary Filtration, Intermittent, Less than 6 Hours Per Day (ICD-10-PCS; 2025-01-09)
PROC: 5A1D70Z Performance of Urinary Filtration, Intermittent, Less than 6 Hours Per Day (ICD-10-PCS; 2025-01-13)
PROC: 5A1D70Z Performance of Urinary Filtration, Intermittent, Less than 6 Hours Per Day (ICD-10-PCS; 2025-01-15)
PROC: 5A1D70Z Performance of Urinary Filtration, Intermittent, Less than 6 Hours Per Day (ICD-10-PCS; 2025-01-17)
PROC: 5A1D70Z Performance of Urinary Filtration, Intermittent, Less than 6 Hours Per Day (ICD-10-PCS; 2025-01-19)
PROC: 05HY33Z Insertion of Infusion Device into Upper Vein, Percutaneous Approach (ICD-10-PCS; 2025-01-23)
PROC: 0JH63XZ Insertion of Tunneled Vascular Access Device into Chest Subcutaneous Tissue and Fascia, Percutaneous Approach (ICD-10-PCS; 2025-01-24)
PROC: B5181ZA Fluoroscopy of Superior Vena Cava using Low Osmolar Contrast, Guidance (ICD-10-PCS; 2025-01-24)
PROC: 02HV33Z Insertion of Infusion Device into Superior Vena Cava, Percutaneous Approach (ICD-10-PCS; 2025-01-24)
PROC: B548ZZA Ultrasonography of Superior Vena Cava, Guidance (ICD-10-PCS; 2025-01-24)
PROC: 5A1D70Z Performance of Urinary Filtration, Intermittent, Less than 6 Hours Per Day (ICD-10-PCS; 2025-01-24)
PROC: 5A1D70Z Performance of Urinary Filtration, Intermittent, Less than 6 Hours Per Day (ICD-10-PCS; 2025-01-26)
PROC: 5A1D70Z Performance of Urinary Filtration, Intermittent, Less than 6 Hours Per Day (ICD-10-PCS; 2025-01-29)
PROC: 5A1D70Z Performance of Urinary Filtration, Intermittent, Less than 6 Hours Per Day (ICD-10-PCS; 2025-01-31)
PROC: 5A1D70Z Performance of Urinary Filtration, Intermittent, Less than 6 Hours Per Day (ICD-10-PCS; 2025-02-02)
PROC: 5A1D70Z Performance of Urinary Filtration, Intermittent, Less than 6 Hours Per Day (ICD-10-PCS; 2025-02-05)
PROC: 5A1D70Z Performance of Urinary Filtration, Intermittent, Less than 6 Hours Per Day (ICD-10-PCS; 2025-02-07)
PROC: 5A1D70Z Performance of Urinary Filtration, Intermittent, Less than 6 Hours Per Day (ICD-10-PCS; 2025-02-09)
DX: T82.7XXA Infection and inflammatory reaction due to other cardiac and vascular devices, implants and grafts, initial encounter (principal); A41.02 Sepsis due to Methicillin resistant Staphylococcus aureus; E87.20 Acidosis, unspecified; E27.40 Unspecified adrenocortical insufficiency; E83.51 Hypocalcemia; L02.415 Cutaneous abscess of right lower limb; I12.0 Hypertensive chronic kidney disease with stage 5 chronic kidney disease or end stage renal disease; R65.20 Severe sepsis without septic shock; Z20.822 Contact with and (suspected) exposure to COVID-19; N18.6 End stage renal disease; E87.5 Hyperkalemia; E78.5 Hyperlipidemia, unspecified; Y83.2 Surgical operation with anastomosis, bypass or graft as the cause of abnormal reaction of the patient, or of later complication, without mention of misadventure at the time of the procedure; Z96.649 Presence of unspecified artificial hip joint; D64.9 Anemia, unspecified; M62.442 Contracture of muscle, left hand; L98.499 Non-pressure chronic ulcer of skin of other sites with unspecified severity; F39 Unspecified mood [affective] disorder; Z96.641 Presence of right artificial hip joint; Z53.20 Procedure and treatment not carried out because of patient's decision for unspecified reasons; Z99.2 Dependence on renal dialysis; Z99.3 Dependence on wheelchair; Z91.158 Patient's noncompliance with renal dialysis for other reason; Z74.01 Bed confinement status; Z91.041 Radiographic dye allergy status; Z91.040 Latex allergy status; Y92.89 Other specified places as the place of occurrence of the external cause
CPT/HCPCS: 36415; 36558; 36573; 36589; 71045; 71250; 72192; 73200; 76937; 77001; 80048; 80051; 80053; 80076; 80202; 82040; 82248; 82330; 82550; 82565; 82728; 83540; 83550; 83605; 83735; 84100; 84145; 84703; 85014; 85018; 85025; 85027; 85379; 85384; 86705; 86706; 86709; 86850; 86900; 86920; 87070; 87075; 87077; 87186; 87340; 87426; 88304; 90935; 92610; 93005; 93312; 93970; 93971; 97162; 97165; 99152; 99153; 99291; A4606; A6261; C1725; C1750; C1769; J0610; J0665; J0690; J0692; J0878; J0885; J1171; J1200; J1642; J1644; J1815; J2003; J2004; J2060; J2250; J2270; J2371; J2405; J2543; J2597; J2704; J2720; J2765; J2997; J3010; J3370; J3480; J3490; J7030; J7040; J7050; J7060; J7512; P9016; Q0163; Q9967; C1752; G0500